=== PATIENT | male | born 1940 | race Hispanic/Latino ===

== ENCOUNTER 2018-10-10 17:03 | Inpatient (IN) | payer MEDICARE, MEDICAID ==
[2018-10-10 17:25] VITALS: BMI 18.8
[2018-10-10 18:26] LABS: BASO % 0.4 % (0.0-2.0); EOS # 0.1 K/uL (0.0-0.7); EOS % 0.6 % (0.0-4.0); HEMOGLOBIN 15.7 g/dL (12.0-18.0); LYMPH # 0.4 K/uL (1.0-4.3); LYMPH % 3.6 % (20.0-40.0); MEAN CORPUSCULAR HEMOGLOBIN 30.7 pg (27.0-31.0); MEAN CORPUSCULAR HGB CONC 35.3 g/dL (33.0-37.0); MEAN PLATELET VOLUME 8.1 fL (7.2-11.7); MONO # 0.5 K/uL (0.0-0.8); MONO % 5.4 % (0.0-10.0); NEUT # 8.8 K/uL (1.8-7.0); PLATELET COUNT 314 K/uL (130-400); RBC 5.13 Mil/uL (4.40-5.90); WHITE BLOOD COUNT 9.8 K/uL (4.8-10.8)
--- NOTE | 2018-10-10 18:26 | C.PDOC ---
History Of Present Illness 78 y/o male pt with hx of agoraphobia presents to the ER for c/o abdominal pain, scrotal pain and weight loss. Associated sx includes retching and vomiting. Pt notes for 5 months he has gastritis and abdominal bloating, x2 months weight loss and x1 month for the abdominal and scrotal pain. Pt notes he has left inguinal pain and is not eating well. Pt denies chest pain, fever, chills, cough, SOB and syncope. Time Seen by Provider: 10/10/18 17:10 Chief Complaint (Nursing): Abdominal Pain History Per: Patient History/Exam Limitations: no limitations Onset/Duration Of Symptoms: Days (x5 months ) Current Symptoms Are (Timing): Still Present Past Medical History Reviewed: Historical Data, Nursing Documentation, Vital Signs Vital Signs: Last Vital Signs Temp 97.9 F 10/10/18 17:57 Pulse 80 10/10/18 17:57 Resp 20 10/10/18 17:57 BP 157/81 H 10/10/18 17:57 Pulse Ox 98 10/10/18 17:57 - Medical History PMH: Gastritis Family History: States: No Known Family Hx - Social History Hx Alcohol Use: No Hx Substance Use: No - Immunization History Hx Tetanus Toxoid Vaccination: No Hx Influenza Vaccination: No Hx Pneumococcal Vaccination: No Review Of Systems Except As Marked, All Systems Reviewed And Found Negative. Constitutional: Positive for: Weight loss. Negative for: Fever, Chills Respiratory: Negative for: Cough, Shortness of Breath Gastrointestinal: Positive for: Vomiting, Abdominal Pain, Other (retching) Genitourinary: Positive for: Scrotal Pain Neurological: Negative for: Other (syncope) Physical Exam - Physical Exam Appears: Non-toxic, No Acute Distress, Unkempt, Chronically Ill, Other (thin, frail, poor hygiene ) Skin: Normal Color, Warm, Dry Head: Atraumatic, Normacephalic Eye(s): bilateral: Normal Inspection, EOMI Oral Mucosa: Dry, Other (pink) Throat: Normal Chest: Symmetrical Cardiovascular: Rhythm Regular Respiratory: Normal Breath Sounds Gastrointestinal/Abdominal: Bowel Sounds (+), No Soft (hard mass), Tenderness, Mass Back: No CVA Tenderness Male Genital: Inguinal Tenderness, Scrotal Swelling, Other (Left inguinal signh ia; mild erythema to scrotum) Extremity: Normal ROM (x4), Pedal Edema (b/l) Neurological/Psych: Oriented x3, Normal Speech, Normal Cognition ED Course And Treatment - Laboratory Results Result Diagrams: 10/14/18 06:46 10/14/18 06:46 ECG: Interpreted By Me, Viewed By Me ECG Rhythm: Sinus Rhythm, Nonspecific Changes ECG Interpretation: Normal, No Acute Changes Interpretation Of ECG: nml axis nml intervals Rate From EC O2 Sat by Pulse Oximetry: 98 (RA) Pulse Ox Interpretation: Normal - Radiology CXR: Interpreted by Me, Viewed By Me CXR Interpretation: Yes: No Acute Disease - CT Scan/US Abd&pelvis Other Rad Studies (CT/US): Read By Radiologist, Radiology Report Reviewed CT/US Interpretation: Impression: Scarring of the lung bases. Moderate to marke d hydronephrosis of both kidneys as well as hydroureter. Prominent right renal cyst of 5.5 cm. Marked distention of the urinary bladder extending into the upper abdomen. Multiple bladder calculi present at the posterior inferior aspect of the bladder. Prostate gland is markedly enlarged and lobular in contour. Large left inguinal hernia which appears to contain incarcerated large bowel. Smaller right inguinal hernia. Close clinical correlation advised. Medical Decision Making Medical Decision Making: Plans: -- CT abd & pelvis -- chem labs -- EKG -- blood work -- CXR -- UCX -- UA 19:33 Dr. Avalos accepts pt for admittance. 30 CC of kayexalate was given. 21:[address] Cruz and he instructs to place Rosenthal and to consult Dr. Early and Dr. West 21:10 market president paged 21:12 Nurse placed a Rosenthal in pt. Result: over 1300 CC of dark yellow urine. 21:19 Dr. Early called 21:29 Dr. West called and said he will see the pt on the floor 21:36 surgical garment inspector was consulted and said she would evaluate the pt. Disposition Counseled Patient/Family Regarding: Studies Performed, Diagnosis - Disposition Disposition: HOSPITALIZED Disposition Time: 19:33 Condition: STABLE - Clinical Impression Clinical Impression: Abdominal pain, Incarcerated inguinal hernia, Acute urinary retention, Dehydration, WILVER (acute kidney injury), Hyperkalemia - Scribe Statement The provider has reviewed the documentation as recorded by the Scribe Kimble Do Provider Attestation: All medical record entries made by the Scribe were at my direction and personally dictated by me. I have reviewed the chart and agree that the record accurately reflects my personal performance of the history, physical exam, medical decision making, and the department course for this patient. I have also personally directed, reviewed, and agree with the discharge instructions and disposition.
[2018-10-10 18:34] LABS: INR 1.1
[2018-10-10 18:46] LABS: ALB/GLOB RATIO 1.6 (1.0-2.1); ALBUMIN 4.8 g/dL (3.5-5.0); ALT/SGPT 22 U/L (21-72); AST/SGOT 21 U/L (17-59); CALCIUM 9.2 mg/dl (8.6-10.4); LIPASE 440 U/L (23-300)
[2018-10-10 18:52] LABS: B-TYPE NATRIURETIC PEPTIDE 97.4 pg/mL (0-900)
[2018-10-10 19:02] LABS: BLOOD UREA NITROGEN 129 mg/dL (9-20); GFR NON-AFRICAN AMERICAN 2
[2018-10-10 19:03] LABS: URINE BACTERIA RARE (<OCC); URINE BILIRUBIN NEGATIVE (NEGATIVE); URINE BLOOD 3+ (NEGATIVE); URINE CLARITY Hazy (Clear); URINE COLOR Yellow (YELLOW); URINE GLUCOSE (UA) NORMAL (Normal); URINE LEUKOCYTE ESTERASE NEG Leu/uL (Negative); URINE PROTEIN NEGATIVE (NEGATIVE); URINE UROBILINOGEN NORMAL mg/dL (0.2-1.0)
[2018-10-10 19:19] LABS: LARGE PLATELETS PRESENT; LYMPHOCYTE 2 % (20-40); MONOCYTE 1 % (0-10); NEUTROPHIL 97 % (50-75); PLATELET CLUMPS PRESENT; PLATELET ESTIMATE SLIGHTLY INCREASED (NORMAL); TOTAL CELLS COUNTED 100
[2018-10-10] MEDS ORDERED: Sod Polystyrene Sulf 15 gm/60 ml Susp PO ONE (19:20)
[2018-10-10] MEDS ORDERED: Sod Polystyrene Sulf 15 gm/60 ml Susp ONE (19:52)
[2018-10-10] MEDS ORDERED: Sodium Chloride 0.9% 1,000 ML ONE (20:40)
[2018-10-10] MEDS: Sodium Chloride 0.9% 1,000 ML IV SCH (20:46)
[2018-10-10] MEDS ORDERED: (Novolin R) Insulin Human Regular 100 units/ml vial IVP ONE (22:32)
[2018-10-10] MEDS ORDERED: Dextrose 50% SYRINGE Inj (50 ml) IV STA (22:33)
[2018-10-10] MEDS ORDERED: Albuterol 0.083% Inhal Sol (2.5 mg/3 mL) UD ONE (22:56)
--- NOTE | 2018-10-10 22:57 | CP.PCM.CON ---
History of Present Illness - History of Present Illness History of Present Illness: Surgery Consult: Dr. Early Pt is an 78M with PMHx significant for depression & agoraphobia who presents to with complaints of abdominal pain & vomiting x 3 months. Pt states that for the past few months he has been having abdominal pain that he thought was "gastritis" and he has been treating with "natural remedies" that he read about on the internet. He admits to on and off generalized abdominal pain with several episodes of vomiting over the last few months. He also states he has been having diarrhea along with these symptoms with tarry stools at times. Pt states that due to his agoraphobia he has not seen a physician for these symptoms, but his friends finally convinced him to come to the hospital today. He also admits to urinary incontinence and the feeling that he "hasn't been able to pee properly for quite some time now." Pt states the last time he saw a physician was more than a year ago. He also admits to having a left sided hernia since 2004 when the hernia was last repaired. Pt states hernia recurred soon after repair and has been getting bigger over the years. He admits to flatus, denies fevers/chill s, chest pain or SOB. States he is able to walk but it has been getting progressively difficult to get around for the last few days because of abdominal pain & swelling in his legs. PMHx: depression, agoraphobia PSHx: L inguinal hernia repair with mesh (2004), nasal mass excision SocialHx: denies smoking, alcohol/drugs NKDA Review of Systems - Review of Systems All systems: reviewed and no additional remarkable complaints except (as per HPI) Past Patient History - Past Social History Smoking Status: Never Smoked Alcohol: Occasional Drugs: Denies - GASTROINTESTINAL Hx Gastritis: Yes - GENITOURINARY/GYNECOLOGICAL Hx Genitourinary Disorders: Yes Hx Prostate Cancer: Yes - PSYCHIATRIC Hx Depression: Yes Hx Substance Use: No - SURGICAL HISTORY Hx Surgeries: Yes Hx Herniorrhaphy: Yes (L inguinal hernia ) - ANESTHESIA Hx Anesthesia: Yes Hx Anesthesia Reactions: No Meds Allergies/Adverse Reactions: Allergies Allergy/AdvReac Type Severity Reaction Status Date / Time No Known Allergies Allergy Verified 10/10/18 17:19 - Medications Medications: Current Medications Sodium Chloride (Sodium Chloride 0.9%) 1,000 mls @ 150 mls/hr IV .Q6H40M [facility] Last Admin: 10/10/18 20:46 Dose: 150 mls/hr Morphine Sulfate (Morphine) 2 mg IVP Q4 PRN PRN Reason: Pain, moderate (4-7) Physical Exam - Constitutional Appears: Well, No Acute Distress - Head Exam Head Exam: ATRAUMATIC, NORMOCEPHALIC - Eye Exam Eye Exam: Normal appearance - ENT Exam ENT Exam: Mucous Membranes Moist - Respiratory Exam Respiratory Exam: NORMAL BREATHING PATTERN - Cardiovascular Exam Cardiovascular Exam: RRR - GI/Abdominal Exam GI & Abdominal Exam: Soft, Tenderness (generalized, more pronounced suprapubic ). absent: Distended, Guarding, Rebound - Exam Additional comments: Large incarcerated left inguinal hernia, soft, very tender to palpation - Extremities Exam Extremities exam: Positive for: pedal edema - Neurological Exam Neurological exam: Alert, Oriented x3 - Skin Skin Exam: Dry, Warm Results - Vital Signs Recent Vital Signs: Last Vital Signs Temp 97.8 F 10/10/18 21:55 Pulse 93 H 10/10/18 21:55 Resp 20 10/10/18 21:55 BP 163/78 H 10/10/18 21:55 Pulse Ox 100 10/10/18 21:55 - Labs Result Diagrams: 10/10/18 18:23 10/10/18 18:23 Labs: Laboratory Results - last 24 hr 10/10/18 10/10/18 10/10/18 18:23 18:23 18:23 WBC 9.8 RBC 5.13 Hgb 15.7 Hct 44.6 MCV 87.0 MCH 30.7 MCHC 35.3 RDW 14.0 Plt Count 314 MPV 8.1 Neut % (Auto) 90.0 H Lymph % (Auto) 3.6 L [place] % (Auto) 5.4 Eos % (Auto) 0.6 Baso % (Auto) 0.4 Neut # (Auto) 8.8 H Lymph # (Auto) 0.4 L [place] # (Auto) 0.5 Eos # (Auto) 0.1 Baso # (Auto) 0.0 Neutrophils % (Manual) 97 H Lymphocytes % (Manual) 2 L Monocytes % (Manual) 1 Platelet Estimate Slightly increased H Plt Clumps, EDTA Present Large Platelets Present PT 12.0 INR 1.1 APTT 37 H Sodium 127 L Potassium 6.0 H Chloride 88 L Carbon Dioxide 13 L Anion Gap 32 H BUN 129 H* Creatinine 22.1 H* Est GFR ( Amer) 2 Est GFR (Non-Af Amer) 2 Random Glucose 107 Calcium 9.2 Total Bilirubin 0.8 AST 21 ALT 22 Alkaline Phosphatase 112 Ammonia Troponin I < 0.0120 NT-Pro-B Natriuret Pep 97.4 Total Protein 7.8 Albumin 4.8 Globulin 3.0 Albumin/Globulin Ratio 1.6 Lipase 440 H Urine Color Urine Clarity Urine pH Ur Specific [place] Urine Protein Urine Glucose (UA) Urine Ketones Urine Blood Urine Nitrate Urine Bilirubin Urine Urobilinogen Ur Leukocyte Esterase Urine WBC (Auto) Urine RBC (Auto) Urine Bacteria 10/10/18 10/10/18 18:23 18:54 WBC RBC Hgb Hct MCV MCH MCHC RDW Plt Count MPV Neut % (Auto) Lymph % (Auto) [place] % (Auto) Eos % (Auto) Baso % (Auto) Neut # (Auto) Lymph # (Auto) [place] # (Auto) Eos # (Auto) Baso # (Auto) Neutrophils % (Manual) Lymphocytes % (Manual) Monocytes % (Manual) Platelet Estimate Plt Clumps, EDTA Large Platelets PT INR APTT Sodium Potassium Chloride Carbon Dioxide Anion Gap BUN Creatinine Est GFR ( Amer) Est GFR (Non-Af Amer) Random Glucose Calcium Total Bilirubin AST ALT Alkaline Phosphatase Ammonia < 9 L Troponin I NT-Pro-B Natriuret Pep Total Protein Albumin Globulin Albumin/Globulin Ratio Lipase Urine Color Yellow Urine Clarity Hazy Urine pH 5.0 Ur Specific [place] 1.009 Urine Protein Negative Urine Glucose (UA) Normal Urine Ketones Negative Urine Blood 3+ H Urine Nitrate Negative Urine Bilirubin Negative Urine Urobilinogen Normal Ur Leukocyte Esterase Neg Urine WBC (Auto) 5 Urine RBC (Auto) 29 H Urine Bacteria Rare - Imaging and Cardiology CT scan - abdomen Status: Image reviewed by me, Report reviewed by me Assessment & Plan - Assessment and Plan (Free Text) Assessment: 78M with incarcerated L inguinal hernia Plan: - pt with elevated K+ & Cr of 22; likely due to WILVER secondary to urinary retention/hydronephrosis as seen on CT - hall catheter in place; already with 2L of UOP - insulin with 50% dextrose given stat for the hyperkalemia. f/u EKG - recommend ICU monitoring - repeat BMP - pt is not clinically obstructed from the inguinal hernia; will need repair once medically optimized - d/w Dr. Nneka Sharpe
[2018-10-10] MEDS: Albuterol 0.083% Inhal Sol (2.5 mg/3 mL) UD INH SCH (22:58)
[2018-10-11] MEDS: Sodium Chloride 0.9% 1,000 ML IV SCH (02:55)
[2018-10-11 08:03] LABS: BASO % 0.5 % (0.0-2.0); EOS % 0.5 % (0.0-4.0); LYMPH # 0.3 K/uL (1.0-4.3); MEAN CELL VOLUME 86.5 fL (80.0-94.0); MEAN CORPUSCULAR HGB CONC 35.8 g/dL (33.0-37.0); MONO # 0.8 K/uL (0.0-0.8); MONO % 10.4 % (0.0-10.0); NEUT # 6.3 K/uL (1.8-7.0); NEUT % 84.6 % (50.0-75.0); NRBC % 0.1 % (0.0-2.0); PLATELET COUNT 328 K/uL (130-400); RBC 4.35 Mil/uL (4.40-5.90); RED CELL DISTRIBUTION WIDTH 13.6 % (11.5-14.5); WHITE BLOOD COUNT 7.5 K/uL (4.8-10.8)
[2018-10-11 08:10] LABS: ALB/GLOB RATIO 1.3 (1.0-2.1); ALBUMIN 3.8 g/dL (3.5-5.0)
[2018-10-11 08:14] LABS: HEMOGLOBIN 13.5 g/dL (12.0-18.0)
[2018-10-11 09:14] LABS: LYMPHOCYTE 5 % (20-40); MONOCYTE 8 % (0-10); NEUTROPHIL 87 % (50-75); TOTAL CELLS COUNTED 100
[2018-10-11 09:15] LABS: PLATELET ESTIMATE NORMAL (NORMAL)
[2018-10-11 09:18] LABS: ANISOCYTOSIS SLIGHT
[2018-10-11 09:20] LABS: POIKILOCYTOSIS SLIGHT
[2018-10-11 09:21] LABS: BURR CELLS SLIGHT; HYPOCHROMIC SLIGHT; LARGE PLATELETS PRESENT; OVALOCYTES SLIGHT; POLYCHROMIC SLIGHT
[2018-10-11 09:23] LABS: GIANT PLATELETS PRESENT; TEARDROP CELLS SLIGHT; TOXIC GRANULATION PRESENT
--- NOTE | 2018-10-11 09:41 | CP.PCM.PN ---
Subjective - Date & Time of Evaluation Date of Evaluation: 10/11/18 Time of Evaluation: 09:38 - Subjective Subjective: Surgery: Dr. Early Pt seen and examined. No acute overnight events. Pt states he is feeling better this morning and his abdominal pain has improved. He denies any more episodes of vomiting. Denies fevers/chills. Admits to flatus. Objective - Vital Signs/Intake and Output Vital Signs (last 24 hours): Temp Pulse Resp BP Pulse Ox 98.2 F 82 20 133/71 100 10/11/18 07:00 10/11/18 07:00 10/11/18 07:00 10/11/18 07:00 10/11/18 07:00 Intake and Output: 10/11/18 10/11/18 06:59 18:59 Intake Total 1500 Output Total 3400 Balance -1900 - Medications Medications: Current Medications Heparin Sodium (Porcine) (Heparin) 5,000 units IV Q12 [facility] Sodium Chloride (Sodium Chloride 0.9%) 1,000 mls @ 150 mls/hr IV .Q6H40M [facility] Last Admin: 10/11/18 02:55 Dose: 150 mls/hr Cefepime HCl 1 gm/ Dextrose 50 mls @ 100 mls/hr IVPB Q24H [facility]; Protocol Last Admin: 10/11/18 00:23 Dose: 100 mls/hr Morphine Sulfate (Morphine) 2 mg IVP Q4 PRN PRN Reason: Pain, moderate (4-7) Pantoprazole Sodium (Protonix Inj) 40 mg IVP DAILY BREN[facility] - Labs Labs: 10/11/18 07:47 10/11/18 07:47 PT 12.0 SECONDS (9.7-12.2) 10/10/18 18:23 INR 1.1 10/10/18 18:23 APTT 37 SECONDS (21-34) H 10/10/18 18:23 - Constitutional Appears: Well, No Acute Distress - Head Exam Head Exam: ATRAUMATIC, NORMOCEPHALIC - Eye Exam Eye Exam: Normal appearance - ENT Exam ENT Exam: Mucous Membranes Moist - Respiratory Exam Respiratory Exam: NORMAL BREATHING PATTERN - Cardiovascular Exam Cardiovascular Exam: RRR - GI/Abdominal Exam GI & Abdominal Exam: Soft. absent: Distended, Guarding, Tenderness - Exam Additional comments: reducible L inguinal hernia - Neurological Exam Neurological Exam: Alert, Awake, Oriented x3 - Skin Skin Exam: Dry, Warm Assessment and Plan - Assessment and Plan (Free Text) Assessment: 78M with L inguinal hernia; reducible Plan: - will plan for OR when pt medically optimized - d/w Dr. Nneka Sharpe
[2018-10-11] MEDS ORDERED: Potassium Chloride 20 mEq ER Tab PO SCH (10:45)
[2018-10-11] MEDS ORDERED: Sodium Chloride 0.45% 1,000 ML IV SCH ×2 (10:45→12:29)
--- NOTE | 2018-10-11 12:00 | CP.PCM.CON ---
History of Present Illness - History of Present Illness History of Present Illness: We are asked to see patient for preoperative cardiac eval for Dx'd incarcerated L inguinal hernia. It appears that he had concomitant obstructive uropathy and WILVER and sx's improved with hall insertion. Presently there is no immediate plans for surgery. PMHX: Agoraphobia, depression Patient is A&Ox3 and lives at home alone and independent with basic household ADLs. He denies any cardiac problems, surgeries. No CP; No CHF sx's ; No fevers or chills Review of Systems - Review of Systems All systems: reviewed and no additional remarkable complaints except Past Patient History - Past Medical History & Family History Past Medical History?: Yes - Past Social History Smoking Status: Never Smoked - CARDIAC Hx Cardiac Disorders: No - PULMONARY Hx Respiratory Disorders: Yes Hx Asthma: Yes - NEUROLOGICAL Hx Neurological Disorder: No - HEENT Hx HEENT Problems: No - RENAL Hx Chronic Kidney Disease: No Other/Comment: creatinine 221 - ENDOCRINE/METABOLIC Hx Endocrine Disorders: No - HEMATOLOGICAL/ONCOLOGICAL Hx Blood Disorders: No - INTEGUMENTARY Hx Dermatological Problems: No - MUSCULOSKELETAL/RHEUMATOLOGICAL Hx Falls: Yes - GASTROINTESTINAL Hx Gastritis: Yes - GENITOURINARY/GYNECOLOGICAL Hx Genitourinary Disorders: Yes Hx Prostate Cancer: Yes - PSYCHIATRIC Hx Substance Use: No - SURGICAL HISTORY Hx Surgeries: Yes Hx Herniorrhaphy: Yes (L inguinal hernia ) - ANESTHESIA Hx Anesthesia: Yes Hx Anesthesia Reactions: No Meds Allergies/Adverse Reactions: Allergies Allergy/AdvReac Type Severity Reaction Status Date / Time No Known Allergies Allergy Verified 10/10/18 17:19 - Medications Medications: Current Medications Heparin Sodium (Porcine) (Heparin) 5,000 units IV Q12 [facility] Cefepime HCl 1 gm/ Dextrose 50 mls @ 100 mls/hr IVPB Q24H [facility]; Protocol Last Admin: 10/11/18 00:23 Dose: 100 mls/hr Sodium Chloride (Sodium Chloride 0.45%) 1,000 mls @ 100 mls/hr IV .Q10H [facility] Morphine Sulfate (Morphine) 2 mg IVP Q4 PRN PRN Reason: Pain, moderate (4-7) Pantoprazole Sodium (Protonix Inj) 40 mg IVP DAILY [facility] Tamsulosin HCl (Flomax) 0.4 mg PO DAILY [facility] Physical Exam - Constitutional Appears: No Acute Distress, Older Than Stated Age - Head Exam Head Exam: ATRAUMATIC, NORMAL INSPECTION, NORMOCEPHALIC - Eye Exam Eye Exam: EOMI, Normal appearance - ENT Exam ENT Exam: Mucous Membranes Moist, Normal Oropharynx - Neck Exam Neck exam: Negative for: Tenderness, Thyromegaly - Respiratory Exam Respiratory Exam: Clear to Auscultation Bilateral. absent: Rhonchi, Wheezes - Cardiovascular Exam Cardiovascular Exam: REGULAR RHYTHM, +S1, +S2. absent: Systolic Murmur - GI/Abdominal Exam GI & Abdominal Exam: Normal Bowel Sounds, Soft. absent: Tenderness - Extremities Exam Extremities exam: Positive for: normal inspection, pedal edema, pedal pulses present - Neurological Exam Neurological exam: Alert, Oriented x3 - Psychiatric Exam Psychiatric exam: Depressed, Normal Affect - Skin Skin Exam: Normal Color, Warm Results - Vital Signs Recent Vital Signs: Last Vital Signs Temp 98.2 F 10/11/18 07:00 Pulse 82 10/11/18 07:00 Resp 20 10/11/18 07:00 BP 133/71 10/11/18 07:00 Pulse Ox 100 10/11/18 07:00 - Labs Result Diagrams: 10/11/18 07:47 10/11/18 13:57 Labs: Laboratory Results - last 24 hr 10/10/18 10/10/18 10/10/18 18:23 18:23 18:23 WBC 9.8 RBC 5.13 Hgb 15.7 Hct 44.6 MCV 87.0 MCH 30.7 MCHC 35.3 RDW 14.0 Plt Count 314 MPV 8.1 Neut % (Auto) 90.0 H Lymph % (Auto) 3.6 L [place] % (Auto) 5.4 Eos % (Auto) 0.6 Baso % (Auto) 0.4 Neut # (Auto) 8.8 H Lymph # (Auto) 0.4 L [place] # (Auto) 0.5 Eos # (Auto) 0.1 Baso # (Auto) 0.0 Neutrophils % (Manual) 97 H Lymphocytes % (Manual) 2 L Monocytes % (Manual) 1 Toxic Granulation Platelet Estimate Slightly increased H Plt Clumps, EDTA Present Large Platelets Present Giant Platelets Polychromasia Hypochromasia (manual) Poikilocytosis (manual Anisocytosis (manual) Tear Drop Cells Ovalocytes [place] Cells PT 12.0 INR 1.1 APTT 37 H Sodium 127 L Potassium 6.0 H Chloride 88 L Carbon Dioxide 13 L Anion Gap 32 H BUN 129 H* Creatinine 22.1 H* Est GFR ( Amer) 2 Est GFR (Non-Af Amer) 2 Random Glucose 107 Calcium 9.2 Phosphorus Magnesium Total Bilirubin 0.8 AST 21 ALT 22 Alkaline Phosphatase 112 Ammonia Troponin I < 0.0120 NT-Pro-B Natriuret Pep 97.4 Total Protein 7.8 Albumin 4.8 Globulin 3.0 Albumin/Globulin Ratio 1.6 Lipase 440 H Urine Color Urine Clarity Urine pH Ur Specific [place] Urine Protein Urine Glucose (UA) Urine Ketones Urine Blood Urine Nitrate Urine Bilirubin Urine Urobilinogen Ur Leukocyte Esterase Urine WBC (Auto) Urine RBC (Auto) Urine Bacteria 10/10/18 10/10/18 10/11/18 18:23 18:54 07:47 WBC 7.5 RBC 4.35 L Hgb 13.5 D Hct 37.6 MCV 86.5 MCH 31.0 MCHC 35.8 RDW 13.6 Plt Count 328 MPV 8.0 Neut % (Auto) 84.6 H Lymph % (Auto) 4.0 L [place] % (Auto) 10.4 H Eos % (Auto) 0.5 Baso % (Auto) 0.5 Neut # (Auto) 6.3 Lymph # (Auto) 0.3 L [place] # (Auto) 0.8 Eos # (Auto) 0.0 Baso # (Auto) 0.0 Neutrophils % (Manual) 87 H Lymphocytes % (Manual) 5 L Monocytes % (Manual) 8 Toxic Granulation Present Platelet Estimate Normal Plt Clumps, EDTA Large Platelets Present Giant Platelets Present Polychromasia Slight Hypochromasia (manual) Slight Poikilocytosis (manual Slight Anisocytosis (manual) Slight Tear Drop Cells Slight Ovalocytes Slight [place] Cells Slight PT INR APTT Sodium Potassium Chloride Carbon Dioxide Anion Gap BUN Creatinine Est GFR ( Amer) Est GFR (Non-Af Amer) Random Glucose Calcium Phosphorus Magnesium Total Bilirubin AST ALT Alkaline Phosphatase Ammonia < 9 L Troponin I NT-Pro-B Natriuret Pep Total Protein Albumin Globulin Albumin/Globulin Ratio Lipase Urine Color Yellow Urine Clarity Hazy Urine pH 5.0 Ur Specific [place] 1.009 Urine Protein Negative Urine Glucose (UA) Normal Urine Ketones Negative Urine Blood 3+ H Urine Nitrate Negative Urine Bilirubin Negative Urine Urobilinogen Normal Ur Leukocyte Esterase Neg Urine WBC (Auto) 5 Urine RBC (Auto) 29 H Urine Bacteria Rare 10/11/18 07:47 WBC RBC Hgb Hct MCV MCH MCHC RDW Plt Count MPV Neut % (Auto) Lymph % (Auto) [place] % (Auto) Eos % (Auto) Baso % (Auto) Neut # (Auto) Lymph # (Auto) [place] # (Auto) Eos # (Auto) Baso # (Auto) Neutrophils % (Manual) Lymphocytes % (Manual) Monocytes % (Manual) Toxic Granulation Platelet Estimate Plt Clumps, EDTA Large Platelets Giant Platelets Polychromasia Hypochromasia (manual) Poikilocytosis (manual Anisocytosis (manual) Tear Drop Cells Ovalocytes [place] Cells PT INR APTT Sodium 140 Potassium 3.3 L Chloride 107 Carbon Dioxide 20 L Anion Gap 16 BUN 77 H Creatinine 6.8 H Est GFR ( Amer) 10 Est GFR (Non-Af Amer) 8 Random Glucose 103 Calcium 9.0 Phosphorus 6.1 H Magnesium 3.0 H Total Bilirubin 0.8 AST 30 ALT 22 Alkaline Phosphatase 86 Ammonia Troponin I NT-Pro-B Natriuret Pep Total Protein 6.7 Albumin 3.8 Globulin 2.9 Albumin/Globulin Ratio 1.3 Lipase Urine Color Urine Clarity Urine pH Ur Specific [place] Urine Protein Urine Glucose (UA) Urine Ketones Urine Blood Urine Nitrate Urine Bilirubin Urine Urobilinogen Ur Leukocyte Esterase Urine WBC (Auto) Urine RBC (Auto) Urine Bacteria - EKG Data EKG Interpreted by: Myself Assessment & Plan - Assessment and Plan (Free Text) Plan: WILVER Obstructive uropathy Inguinal hernia Creat improved 22 -> 3.4 K+ normal Acidosis: improving EKG: ordered and read by me as: NSR, nonspecific ST changes anterior CXR: No infiltrate or congestion Troponin neg for ACS CT abd: noted; hydronephrosis, bladder enlargement, L. inguinal hernia Currently patient does not have any active ischemia, sx's of CHF LE edema and scrotal edema improved: likely secondary to obstructive uropathy now hall insertion BP is stage 2 range can consider norvasc 5 Call back if surgery is being contemplated.
--- NOTE | 2018-10-11 12:36 | CP.PCM.CON ---
History of Present Illness - History of Present Illness History of Present Illness: Nephrology Consultation Note: Assessment: Stable Acute Kidney Injury (N17.9) likely due to obs uropathy: improving Hyperkalemia, hypokalemia, acidosis inguinal hernia, hyperphos, depression, hyponatremia Plan No acute need for renal replacement therapy at this time. Maintain hemodynamics stable. Avoid hypotension. Patient not on ACEI/ARB due to recent WILVER Monitor Input/Output, daily weights and renal function with basic metabolic panel change IVF to D5W monitor serum na, avoid correction in serum na >6-8 meq/24 hrs started flomax daily urology and surgery eval supplemented KCL Dose meds/antibiotics for reduced GFR. Avoid fleets enema/magnesium based laxatives. Avoid nephrotoxins/NSAIDs/ iodinated contrast (unless needed emergent ly) Glycemic control Further work up/management as per primary team Thanks for allowing me to participate in care of your patient. Will follow patient with you. Please call if any Qs. had d/w team Dr Braulio Evans Office: [phone] Chief Complaint; gastritis Reason for consult: Acute Kidney Injury HPI: Pt is a 78 M with hx of depression and agarophobia presented with complaints of pain abdomen and found to have left ingunal hernia and severe obs uropathy with WILVER which is improving well after hall catheter. renal consult for WILVER Denies OTC/herbal meds or NSAIDs No recent iodinated contrast exposure. No obvious episodes of low BP. pt feels better. c/o ankle swelling ROS: Cardiovascular: No chest pain. Pulmonary: No shortness of breath Gastrointestinal: denies abdominal pain No nausea. No vomiting. Genitourinary: No pain while urinating. Denies blood in urine. hsa hall All other negative except as mentioned in HPI Physical Examination: General Appearance: Comfortable, in no acute respiratory distress, co-operative . Vitals reviewed and noted as below Head; Atraumatic, normocephalic ENT: no ulcers no thrush. Tongue is midline. Oropharynx: no rash or ulcers. EYES: Pupils are equal, round and reactive to light accommodation. Eye muscles and extraocular movement intact. Sclera is anicteric. Neck; supple no lymphadenopathy, no thyromegaly or bruit Lungs: Normal respiratory rate/effort. Breath sounds bilateral equal and clear Heart: Normal rate. s1s2 normal. No rub or gallop. Extremities: 1+ edema. No varicose veins Neurological: Patient is alert, awake and oriented to person, place and time. No focal deficit. Strength bilateral appropriate and equal Skin: Warm and dry. Normal turgor. No rash. Palpitation: Normal elasticity for age Abdomen: Abdomen is soft. Bowel sounds +. There is no abdominal tenderness, no guarding/rigidity no organomegaly Psych: normal insight and normal affect/mood MSK: no joint tenderness or swelling. Digits and nails normal, no deformity : kidney or bladder not palpable. has hall. left inguinal hernia + Labs/imaging reviewed. Past medical history, past surgical history, family history, social history, allergy reviewed and noted as below Family hx: no hx of CKD. Rest non-contributory Past Patient History - Past Medical History & Family History Past Medical History?: Yes - Past Social History Smoking Status: Never Smoked - CARDIAC Hx Cardiac Disorders: No - PULMONARY Hx Respiratory Disorders: Yes Hx Asthma: Yes - NEUROLOGICAL Hx Neurological Disorder: No - HEENT Hx HEENT Problems: No - RENAL Hx Chronic Kidney Disease: No Other/Comment: creatinine 221 - ENDOCRINE/METABOLIC Hx Endocrine Disorders: No - HEMATOLOGICAL/ONCOLOGICAL Hx Blood Disorders: No - INTEGUMENTARY Hx Dermatological Problems: No - MUSCULOSKELETAL/RHEUMATOLOGICAL Hx Falls: Yes - GASTROINTESTINAL Hx Gastritis: Yes - GENITOURINARY/GYNECOLOGICAL Hx Genitourinary Disorders: Yes Hx Prostate Cancer: Yes - PSYCHIATRIC Hx Substance Use: No - SURGICAL HISTORY Hx Surgeries: Yes Hx Herniorrhaphy: Yes (L inguinal hernia ) - ANESTHESIA Hx Anesthesia: Yes Hx Anesthesia Reactions: No Meds Allergies/Adverse Reactions: Allergies Allergy/AdvReac Type Severity Reaction Status Date / Time No Known Allergies Allergy Verified 10/10/18 17:19 - Medications Medications: Current Medications Heparin Sodium (Porcine) (Heparin) 5,000 units IV Q12 [facility] Cefepime HCl 1 gm/ Dextrose 50 mls @ 100 mls/hr IVPB Q24H [facility]; Protocol Last Admin: 10/11/18 00:23 Dose: 100 mls/hr Sodium Chloride (Sodium Chloride 0.45%) 1,000 mls @ 75 mls/hr IV .[id number] [facility] Morphine Sulfate (Morphine) 2 mg IVP Q4 PRN PRN Reason: Pain, moderate (4-7) Pantoprazole Sodium (Protonix Inj) 40 mg IVP DAILY [facility] Tamsulosin HCl (Flomax) 0.4 mg PO DAILY [facility] Results - Vital Signs Recent Vital Signs: Last Vital Signs Temp 98.2 F 10/11/18 07:00 Pulse 82 10/11/18 07:00 Resp 20 10/11/18 07:00 BP 133/71 10/11/18 07:00 Pulse Ox 100 10/11/18 07:00 - Labs Result Diagrams: 10/11/18 07:47 10/11/18 07:47 Labs: Laboratory Results - last 24 hr 10/10/18 10/10/18 10/10/18 18:23 18:23 18:23 WBC 9.8 RBC 5.13 Hgb 15.7 Hct 44.6 MCV 87.0 MCH 30.7 MCHC 35.3 RDW 14.0 Plt Count 314 MPV 8.1 Neut % (Auto) 90.0 H Lymph % (Auto) 3.6 L [place] % (Auto) 5.4 Eos % (Auto) 0.6 Baso % (Auto) 0.4 Neut # (Auto) 8.8 H Lymph # (Auto) 0.4 L [place] # (Auto) 0.5 Eos # (Auto) 0.1 Baso # (Auto) 0.0 Neutrophils % (Manual) 97 H Lymphocytes % (Manual) 2 L Monocytes % (Manual) 1 Toxic Granulation Platelet Estimate Slightly increased H Plt Clumps, EDTA Present Large Platelets Present Giant Platelets Polychromasia Hypochromasia (manual) Poikilocytosis (manual Anisocytosis (manual) Tear Drop Cells Ovalocytes [place] Cells PT 12.0 INR 1.1 APTT 37 H Sodium 127 L Potassium 6.0 H Chloride 88 L Carbon Dioxide 13 L Anion Gap 32 H BUN 129 H* Creatinine 22.1 H* Est GFR ( Amer) 2 Est GFR (Non-Af Amer) 2 Random Glucose 107 Calcium 9.2 Phosphorus Magnesium Total Bilirubin 0.8 AST 21 ALT 22 Alkaline Phosphatase 112 Ammonia Troponin I < 0.0120 NT-Pro-B Natriuret Pep 97.4 Total Protein 7.8 Albumin 4.8 Globulin 3.0 Albumin/Globulin Ratio 1.6 Lipase 440 H Urine Color Urine Clarity Urine pH Ur Specific [place] Urine Protein Urine Glucose (UA) Urine Ketones Urine Blood Urine Nitrate Urine Bilirubin Urine Urobilinogen Ur Leukocyte Esterase Urine WBC (Auto) Urine RBC (Auto) Urine Bacteria 10/10/18 10/10/18 10/11/18 18:23 18:54 07:47 WBC 7.5 RBC 4.35 L Hgb 13.5 D Hct 37.6 MCV 86.5 MCH 31.0 MCHC 35.8 RDW 13.6 Plt Count 328 MPV 8.0 Neut % (Auto) 84.6 H Lymph % (Auto) 4.0 L [place] % (Auto) 10.4 H Eos % (Auto) 0.5 Baso % (Auto) 0.5 Neut # (Auto) 6.3 Lymph # (Auto) 0.3 L [place] # (Auto) 0.8 Eos # (Auto) 0.0 Baso # (Auto) 0.0 Neutrophils % (Manual) 87 H Lymphocytes % (Manual) 5 L Monocytes % (Manual) 8 Toxic Granulation Present Platelet Estimate Normal Plt Clumps, EDTA Large Platelets Present Giant Platelets Present Polychromasia Slight Hypochromasia (manual) Slight Poikilocytosis (manual Slight Anisocytosis (manual) Slight Tear Drop Cells Slight Ovalocytes Slight [place] Cells Slight PT INR APTT Sodium Potassium Chloride Carbon Dioxide Anion Gap BUN Creatinine Est GFR ( Amer) Est GFR (Non-Af Amer) Random Glucose Calcium Phosphorus Magnesium Total Bilirubin AST ALT Alkaline Phosphatase Ammonia < 9 L Troponin I NT-Pro-B Natriuret Pep Total Protein Albumin Globulin Albumin/Globulin Ratio Lipase Urine Color Yellow Urine Clarity Hazy Urine pH 5.0 Ur Specific [place] 1.009 Urine Protein Negative Urine Glucose (UA) Normal Urine Ketones Negative Urine Blood 3+ H Urine Nitrate Negative Urine Bilirubin Negative Urine Urobilinogen Normal Ur Leukocyte Esterase Neg Urine WBC (Auto) 5 Urine RBC (Auto) 29 H Urine Bacteria Rare 10/11/18 07:47 WBC RBC Hgb Hct MCV MCH MCHC RDW Plt Count MPV Neut % (Auto) Lymph % (Auto) [place] % (Auto) Eos % (Auto) Baso % (Auto) Neut # (Auto) Lymph # (Auto) [place] # (Auto) Eos # (Auto) Baso # (Auto) Neutrophils % (Manual) Lymphocytes % (Manual) Monocytes % (Manual) Toxic Granulation Platelet Estimate Plt Clumps, EDTA Large Platelets Giant Platelets Polychromasia Hypochromasia (manual) Poikilocytosis (manual Anisocytosis (manual) Tear Drop Cells Ovalocytes [place] Cells PT INR APTT Sodium 140 Potassium 3.3 L Chloride 107 Carbon Dioxide 20 L Anion Gap 16 BUN 77 H Creatinine 6.8 H Est GFR ( Amer) 10 Est GFR (Non-Af Amer) 8 Random Glucose 103 Calcium 9.0 Phosphorus 6.1 H Magnesium 3.0 H Total Bilirubin 0.8 AST 30 ALT 22 Alkaline Phosphatase 86 Ammonia Troponin I NT-Pro-B Natriuret Pep Total Protein 6.7 Albumin 3.8 Globulin 2.9 Albumin/Globulin Ratio 1.3 Lipase Urine Color Urine Clarity Urine pH Ur Specific [place] Urine Protein Urine Glucose (UA) Urine Ketones Urine Blood Urine Nitrate Urine Bilirubin Urine Urobilinogen Ur Leukocyte Esterase Urine WBC (Auto) Urine RBC (Auto) Urine Bacteria
--- NOTE | 2018-10-11 13:06 | CT ---
Date of service: 10/10/2018 PROCEDURE: CT Abdomen and Pelvis with Oral contrast. HISTORY: Abdominal pain COMPARISON: None. TECHNIQUE: Contiguous axial images of the abdomen and pelvis without oral or intravenous contrast. Additional 2D coronal and sagittal reformats generated. Radiation dose: Total exam DLP = 446.38 mGy-cm. This CT exam was performed using one or more of the following dose reduction techniques: Automated exposure control, adjustment of the mA and/or kV according to patient size, and/or use of iterative reconstruction technique. FINDINGS: LOWER THORAX: Linear atelectasis and/or scarring changes seen both lung bases including the middle lobe. No focal consolidation. No effusion or basilar pneumothorax. Heart size within range of normal. LIVER: Unremarkable. No gross lesion or ductal dilatation. GALLBLADDER AND BILE DUCTS: Gallbladder appears incompletely distended likely due to nonfasting state. PANCREAS: Unremarkable. No mass. No ductal dilatation. SPLEEN: Spleen exhibits normal size and attenuation pattern. ADRENALS: No adrenal lesions. KIDNEYS AND URETERS: Moderate to fairly significant bilateral hydronephrosis likely due to chronic bladder outlet obstruction.. No definitive obstructing renal or ureteral calculi identified. There is a large approximately 5 cm exophytic cyst arising from the lower pole of the right kidney.. Questionable tiny sub cm cyst anterior cortex upper/midpole left kidney. BLADDER: Urinary bladder is significantly distended extending into the mid/upper abdomen more so on the right as the bladder extends superiorly.. Findings consistent with urinary bladder outlet obstruction likely due to enlarged prostate gland. The intraluminal urinary bladder calculi are present. Additionally, there are bladder diverticula seen along the posterior superior margin of the urinary bladder. REPRODUCTIVE: Prostate gland is enlarged measuring approximately 5.6 cm in transverse dimension.. See additional details regarding scrotum in peritoneal section of this report below. APPENDIX: Appendix is not seen with any certainty due to compressive effects of the significantly distended urinary bladder BOWEL: Evaluation of the bowel is limited due to the lack of oral contrast material. Bowel evaluation is further limited by significantly distended urinary bladder which compresses both large and small bowel loops. PERITONEUM: No free intraperitoneal air no fluid collection. No free air. The there is a large incarcerated left-sided inguinal hernia containing mesenteric fat and loops of bowel one of which is most likely a segment of the descending and/or sigmoid colon which contains numerous diverticula. There is also fluid present within the scrotal sac which could represent a hydrocele however the possibility of an acute diverticulitis cannot be completely excluded. Clinical correlation recommended. There is a small fat containing right inguinal hernia. LYMPH NODES: Unremarkable. No enlarged lymph nodes. VASCULATURE: Unremarkable. No aortic aneurysm. Mild aortic atherosclerotic calcification or mural plaque present. BONES: Minor multilevel degenerative spondylosis of the lower thoracic and lumbar spine. OTHER FINDINGS: None. IMPRESSION: Severely distended urinary bladder which extends superiorly into the upper/mid abdomen more so on the right along its superior border. Findings likely due to enlarged prostate gland with bladder outlet obstruction. There are also bladder diverticula along the superior margin of the urinary bladder. Intraluminal urinary bladder calculi are also present within the inferior dependent portion of the urinary bladder. There are also is secondary moderate to fairly significant bilateral hydronephrosis.. Large exophytic cyst lower pole right kidney with suspected small cyst anterior cortex upper/midpole left kidney. There is a large left-sided inguinal hernia that contains loops of unobstructed bowel, a short segment which probably represents the descending and/or sigmoid colon which exhibits several colonic diverticula. Fluid is present within the scrotum likely due to a hydrocele however the possibility of acute diverticulitis not excluded. Small right inguinal hernia. Small fat containing right inguinal hernia. Note this report was placed in PA review folder for follow up.
--- NOTE | 2018-10-11 14:16 | CP.PCM.HP ---
Past Patient History - Past Medical History & Family History Past Medical History?: Yes - Past Social History Smoking Status: Never Smoked - CARDIAC Hx Cardiac Disorders: No - PULMONARY Hx Respiratory Disorders: Yes Hx Asthma: Yes - NEUROLOGICAL Hx Neurological Disorder: No - HEENT Hx HEENT Problems: No - RENAL Hx Chronic Kidney Disease: No Other/Comment: creatinine 221 - ENDOCRINE/METABOLIC Hx Endocrine Disorders: No - HEMATOLOGICAL/ONCOLOGICAL Hx Blood Disorders: No - INTEGUMENTARY Hx Dermatological Problems: No - MUSCULOSKELETAL/RHEUMATOLOGICAL Hx Falls: Yes - GASTROINTESTINAL Hx Gastritis: Yes - GENITOURINARY/GYNECOLOGICAL Hx Genitourinary Disorders: Yes Hx Prostate Cancer: Yes - PSYCHIATRIC Hx Substance Use: No - SURGICAL HISTORY Hx Surgeries: Yes Hx Herniorrhaphy: Yes (L inguinal hernia ) - ANESTHESIA Hx Anesthesia: Yes Hx Anesthesia Reactions: No Meds Allergies/Adverse Reactions: Allergies Allergy/AdvReac Type Severity Reaction Status Date / Time No Known Allergies Allergy Verified 10/10/18 17:19 Physical Exam - Constitutional Appears: Well - Head Exam Head Exam: ATRAUMATIC, NORMAL INSPECTION, NORMOCEPHALIC - Eye Exam Eye Exam: EOMI, Normal appearance, PERRL Pupil Exam: NORMAL ACCOMODATION, PERRL - ENT Exam ENT Exam: Mucous Membranes Moist, Normal Exam - Neck Exam Neck exam: Positive for: Normal Inspection - Respiratory Exam Respiratory Exam: Decreased Breath Sounds - Cardiovascular Exam Cardiovascular Exam: REGULAR RHYTHM, +S1, +S2 - GI/Abdominal Exam GI & Abdominal Exam: Diminished Bowel Sounds, Soft - Rectal Exam Rectal Exam: Deferred Results - Vital Signs Recent Vital Signs: Last Vital Signs Temp 98.2 F 10/11/18 07:00 Pulse 82 10/11/18 07:00 Resp 20 10/11/18 07:00 BP 133/71 10/11/18 07:00 Pulse Ox 100 10/11/18 07:00 - Labs Result Diagrams: 10/11/18 07:47 10/11/18 07:47 Labs: Laboratory Results - last 24 hr 10/10/18 10/10/18 10/10/18 18:23 18:23 18:23 WBC 9.8 RBC 5.13 Hgb 15.7 Hct 44.6 MCV 87.0 MCH 30.7 MCHC 35.3 RDW 14.0 Plt Count 314 MPV 8.1 Neut % (Auto) 90.0 H Lymph % (Auto) 3.6 L [place] % (Auto) 5.4 Eos % (Auto) 0.6 Baso % (Auto) 0.4 Neut # (Auto) 8.8 H Lymph # (Auto) 0.4 L [place] # (Auto) 0.5 Eos # (Auto) 0.1 Baso # (Auto) 0.0 Neutrophils % (Manual) 97 H Lymphocytes % (Manual) 2 L Monocytes % (Manual) 1 Toxic Granulation Platelet Estimate Slightly increased H Plt Clumps, EDTA Present Large Platelets Present Giant Platelets Polychromasia Hypochromasia (manual) Poikilocytosis (manual Anisocytosis (manual) Tear Drop Cells Ovalocytes [place] Cells PT 12.0 INR 1.1 APTT 37 H Sodium 127 L Potassium 6.0 H Chloride 88 L Carbon Dioxide 13 L Anion Gap 32 H BUN 129 H* Creatinine 22.1 H* Est GFR ( Amer) 2 Est GFR (Non-Af Amer) 2 Random Glucose 107 Calcium 9.2 Phosphorus Magnesium Total Bilirubin 0.8 AST 21 ALT 22 Alkaline Phosphatase 112 Ammonia Troponin I < 0.0120 NT-Pro-B Natriuret Pep 97.4 Total Protein 7.8 Albumin 4.8 Globulin 3.0 Albumin/Globulin Ratio 1.6 Lipase 440 H Urine Color Urine Clarity Urine pH Ur Specific [place] Urine Protein Urine Glucose (UA) Urine Ketones Urine Blood Urine Nitrate Urine Bilirubin Urine Urobilinogen Ur Leukocyte Esterase Urine WBC (Auto) Urine RBC (Auto) Urine Bacteria 10/10/18 10/10/18 10/11/18 18:23 18:54 07:47 WBC 7.5 RBC 4.35 L Hgb 13.5 D Hct 37.6 MCV 86.5 MCH 31.0 MCHC 35.8 RDW 13.6 Plt Count 328 MPV 8.0 Neut % (Auto) 84.6 H Lymph % (Auto) 4.0 L [place] % (Auto) 10.4 H Eos % (Auto) 0.5 Baso % (Auto) 0.5 Neut # (Auto) 6.3 Lymph # (Auto) 0.3 L [place] # (Auto) 0.8 Eos # (Auto) 0.0 Baso # (Auto) 0.0 Neutrophils % (Manual) 87 H Lymphocytes % (Manual) 5 L Monocytes % (Manual) 8 Toxic Granulation Present Platelet Estimate Normal Plt Clumps, EDTA Large Platelets Present Giant Platelets Present Polychromasia Slight Hypochromasia (manual) Slight Poikilocytosis (manual Slight Anisocytosis (manual) Slight Tear Drop Cells Slight Ovalocytes Slight [place] Cells Slight PT INR APTT Sodium Potassium Chloride Carbon Dioxide Anion Gap BUN Creatinine Est GFR ( Amer) Est GFR (Non-Af Amer) Random Glucose Calcium Phosphorus Magnesium Total Bilirubin AST ALT Alkaline Phosphatase Ammonia < 9 L Troponin I NT-Pro-B Natriuret Pep Total Protein Albumin Globulin Albumin/Globulin Ratio Lipase Urine Color Yellow Urine Clarity Hazy Urine pH 5.0 Ur Specific [place] 1.009 Urine Protein Negative Urine Glucose (UA) Normal Urine Ketones Negative Urine Blood 3+ H Urine Nitrate Negative Urine Bilirubin Negative Urine Urobilinogen Normal Ur Leukocyte Esterase Neg Urine WBC (Auto) 5 Urine RBC (Auto) 29 H Urine Bacteria Rare 10/11/18 07:47 WBC RBC Hgb Hct MCV MCH MCHC RDW Plt Count MPV Neut % (Auto) Lymph % (Auto) [place] % (Auto) Eos % (Auto) Baso % (Auto) Neut # (Auto) Lymph # (Auto) [place] # (Auto) Eos # (Auto) Baso # (Auto) Neutrophils % (Manual) Lymphocytes % (Manual) Monocytes % (Manual) Toxic Granulation Platelet Estimate Plt Clumps, EDTA Large Platelets Giant Platelets Polychromasia Hypochromasia (manual) Poikilocytosis (manual Anisocytosis (manual) Tear Drop Cells Ovalocytes [place] Cells PT INR APTT Sodium 140 Potassium 3.3 L Chloride 107 Carbon Dioxide 20 L Anion Gap 16 BUN 77 H Creatinine 6.8 H Est GFR ( Amer) 10 Est GFR (Non-Af Amer) 8 Random Glucose 103 Calcium 9.0 Phosphorus 6.1 H Magnesium 3.0 H Total Bilirubin 0.8 AST 30 ALT 22 Alkaline Phosphatase 86 Ammonia Troponin I NT-Pro-B Natriuret Pep Total Protein 6.7 Albumin 3.8 Globulin 2.9 Albumin/Globulin Ratio 1.3 Lipase Urine Color Urine Clarity Urine pH Ur Specific [place] Urine Protein Urine Glucose (UA) Urine Ketones Urine Blood Urine Nitrate Urine Bilirubin Urine Urobilinogen Ur Leukocyte Esterase Urine WBC (Auto) Urine RBC (Auto) Urine Bacteria
[2018-10-11 14:43] LABS: CALCIUM 8.4 mg/dl (8.6-10.4)
--- NOTE | 2018-10-11 15:46 | RAD ---
Date of service: 10/10/2018 HISTORY: abd pain COMPARISON: None available. FINDINGS: LUNGS: No active pulmonary disease. PLEURA: No significant pleural effusion identified, no pneumothorax apparent. CARDIOVASCULAR: Mild aortic atherosclerotic calcification present. Normal cardiac size. No pulmonary vascular congestion. OSSEOUS STRUCTURES: Mild multilevel degenerative spondylosis of the thoracic spine. VISUALIZED UPPER ABDOMEN: Normal. OTHER FINDINGS: None. IMPRESSION: No active disease.
[2018-10-12] MEDS: Tramadol 25 mg PO PRN (00:36)
[2018-10-12 08:31] LABS: MEAN CELL VOLUME 87.7 fL (80.0-94.0); MEAN CORPUSCULAR HEMOGLOBIN 30.4 pg (27.0-31.0); MEAN CORPUSCULAR HGB CONC 34.6 g/dL (33.0-37.0); MEAN PLATELET VOLUME 8.1 fL (7.2-11.7); RBC 3.63 Mil/uL (4.40-5.90); RED CELL DISTRIBUTION WIDTH 13.9 % (11.5-14.5); WHITE BLOOD COUNT 5.6 K/uL (4.8-10.8)
[2018-10-12 08:42] LABS: BLOOD UREA NITROGEN 21 mg/dL (9-20); CALCIUM 7.8 mg/dl (8.6-10.4); GFR NON-AFRICAN AMERICAN > 60
[2018-10-12] MEDS ORDERED: POLYETHYLENE GLYCOL 3350 17 GM/Dose PACKET PO ONE (12:18)
--- NOTE | 2018-10-12 12:23 | CP.PCM.PN ---
Subjective - Date & Time of Evaluation Date of Evaluation: 10/12/18 Time of Evaluation: 12:19 - Subjective Subjective: Surgery: Dr. Early Pt seen and examined. No acute overnight events. States he's feeling a lot better and abdominal pain has improved significantly. Denies any more episodes of nausea/vomiting, states he's tolerating his diet. Pt admits to not having a BM for the past few days. Denies fevers/chills. Objective - Vital Signs/Intake and Output Vital Signs (last 24 hours): Temp Pulse Resp BP Pulse Ox 98.1 F 66 20 100/50 L 96 10/12/18 07:00 10/12/18 08:02 10/12/18 07:00 10/12/18 07:00 10/12/18 07:00 Intake and Output: 10/12/18 10/12/18 06:59 18:59 Intake Total 1482 Output Total 2200 Balance -718 - Medications Medications: Current Medications Heparin Sodium (Porcine) (Heparin) 5,000 units SC Q12 [facility] Last Admin: 10/12/18 10:39 Dose: 5,000 units Cefepime HCl 1 gm/ Dextrose 50 mls @ 100 mls/hr IVPB Q24H [facility]; Protocol Last Admin: 10/12/18 00:37 Dose: 100 mls/hr Dextrose (Dextrose 5% In Water 1000 Ml) 1,000 mls @ 75 mls/hr IV .[id number] [facility] Last Admin: 10/12/18 01:57 Dose: 75 mls/hr Pantoprazole Sodium (Protonix Inj) 40 mg IVP DAILY [facility] Last Admin: 10/12/18 10:38 Dose: 40 mg Polyethylene Glycol (Miralax) 17 gm PO ONCE ONE Stop: 10/12/18 12:19 Potassium Chloride (K-Dur 20 Meq Er Tab) 40 meq PO DAILY [facility]EN[facility] Stop: 10/12/18 12:31 Tamsulosin HCl (Flomax) 0.4 mg PO DAILY [facility] Last Admin: 10/12/18 10:38 Dose: 0.4 mg Tramadol HCl (Ultram) 25 mg PO TID PRN PRN Reason: Pain, moderate (4-7) Last Admin: 10/12/18 00:36 Dose: 25 mg - Labs Labs: 10/12/18 08:12 10/12/18 08:12 PT 12.0 SECONDS (9.7-12.2) 10/10/18 18:23 INR 1.1 10/10/18 18:23 APTT 37 SECONDS (21-34) H 10/10/18 18:23 - Constitutional Appears: Well, No Acute Distress - Head Exam Head Exam: ATRAUMATIC, NORMOCEPHALIC - Eye Exam Eye Exam: Normal appearance - ENT Exam ENT Exam: Mucous Membranes Moist - Respiratory Exam Respiratory Exam: NORMAL BREATHING PATTERN - Cardiovascular Exam Cardiovascular Exam: RRR - GI/Abdominal Exam GI & Abdominal Exam: Soft. absent: Distended, Tenderness, Rebound - Exam Additional comments: reducible L inguinal hernia - Neurological Exam Neurological Exam: Alert, Awake, Oriented x3 - Skin Skin Exam: Dry, Warm Assessment and Plan - Assessment and Plan (Free Text) Assessment: 78M with reducible left inguinal hernia Plan: - pt clinically improved with normalize Cr s/p hall insertion for obstructive u ropathy - f/u urology recs - no urgent need for hernia repair at this time - d/w Dr. Nneka Sharpe
[2018-10-12] MEDS ORDERED: Potassium Chloride 20 mEq ER Tab PO SCH (12:30)
--- NOTE | 2018-10-12 12:55 | CP.PCM.PN ---
Subjective - Date & Time of Evaluation Date of Evaluation: 10/12/18 Time of Evaluation: 12:54 - Subjective Subjective: Nephrology Consultation Note: Assessment: Stable Acute Kidney Injury (N17.9) likely due to obs uropathy: improved Hyperkalemia, hypokalemia, acidosis inguinal hernia, hyperphos, depression, hyponatremia Plan No acute need for renal replacement therapy at this time. Maintain hemodynamics stable. Avoid hypotension. Patient not on ACEI/ARB due to recent WILVER Monitor Input/Output, daily weights and renal function with basic metabolic panel continue with IVF as D5W for another day to Na correction in target range. monitor serum na, avoid correction in serum na >6-8 meq/24 hrs started flomax daily urology and surgery eval supplemented KCL Dose meds/antibiotics for normal GFR. Glycemic control Further work up/management as per primary team Thanks for allowing me to participate in care of your patient. Will follow patient with you. Please call if any Qs. had d/w team Dr Braulio Evans Office: [phone] Chief Complaint; gastritis Reason for consult: Acute Kidney Injury HPI: Pt is a 78 M with hx of depression and agarophobia presented with complaints of pain abdomen and found to have left ingunal hernia and severe obs uropathy with WILVER which is improving well after hall catheter. renal consult for WILVER Denies OTC/herbal meds or NSAIDs No recent iodinated contrast exposure. No obvious episodes of low BP. pt feels better. c/o ankle swelling ROS: Cardiovascular: No chest pain. Pulmonary: No shortness of breath Gastrointestinal: denies abdominal pain No nausea. No vomiting. Genitourinary: No pain while urinating. Denies blood in urine. has hall All other negative except as mentioned in HPI Physical Examination: General Appearance: Comfortable, in no acute respiratory distress, co-operative . Vitals reviewed and noted as below Head; Atraumatic, normocephalic ENT: no ulcers no thrush. Tongue is midline. Oropharynx: no rash or ulcers. EYES: Pupils are equal, round and reactive to light accommodation. Eye muscles and extraocular movement intact. Sclera is anicteric. Neck; supple no lymphadenopathy, no thyromegaly or bruit Lungs: Normal respiratory rate/effort. Breath sounds bilateral equal and clear Heart: Normal rate. s1s2 normal. No rub or gallop. Extremities: 1+ edema. No varicose veins Neurological: Patient is alert, awake and oriented to person, place and time. No focal deficit. Strength bilateral appropriate and equal Skin: Warm and dry. Normal turgor. No rash. Palpitation: Normal elasticity for age Abdomen: Abdomen is soft. Bowel sounds +. There is no abdominal tenderness, no guarding/rigidity no organomegaly Psych: normal insight and normal affect/mood MSK: no joint tenderness or swelling. Digits and nails normal, no deformity : kidney or bladder not palpable. has hall. left inguinal hernia + Labs/imaging reviewed. Past medical history, past surgical history, family history, social history, allergy reviewed and noted as below Family hx: no hx of CKD. Rest non-contributory Objective - Vital Signs/Intake and Output Vital Signs (last 24 hours): Temp Pulse Resp BP Pulse Ox 98.1 F 66 20 100/50 L 96 10/12/18 07:00 10/12/18 08:02 10/12/18 07:00 10/12/18 07:00 10/12/18 07:00 Intake and Output: 10/12/18 10/12/18 06:59 18:59 Intake Total 1482 Output Total 2200 Balance -718 - Medications Medications: Current Medications Heparin Sodium (Porcine) (Heparin) 5,000 units SC Q12 [facility] Last Admin: 10/12/18 10:39 Dose: 5,000 units Cefepime HCl 1 gm/ Dextrose 50 mls @ 100 mls/hr IVPB Q24H [facility]; Protocol Last Admin: 10/12/18 00:37 Dose: 100 mls/hr Dextrose (Dextrose 5% In Water 1000 Ml) 1,000 mls @ 75 mls/hr IV .[id number] [facility] Last Admin: 10/12/18 01:57 Dose: 75 mls/hr Pantoprazole Sodium (Protonix Inj) 40 mg IVP DAILY [facility] Last Admin: 10/12/18 10:38 Dose: 40 mg Tamsulosin HCl (Flomax) 0.4 mg PO DAILY [facility] Last Admin: 10/12/18 10:38 Dose: 0.4 mg Tramadol HCl (Ultram) 25 mg PO TID PRN PRN Reason: Pain, moderate (4-7) Last Admin: 10/12/18 00:36 Dose: 25 mg - Labs Labs: 10/12/18 08:12 10/12/18 08:12 PT 12.0 SECONDS (9.7-12.2) 10/10/18 18:23 INR 1.1 10/10/18 18:23 APTT 37 SECONDS (21-34) H 10/10/18 18:23
--- NOTE | 2018-10-12 18:05 | CP.PCM.PN ---
Subjective - Date & Time of Evaluation Date of Evaluation: 10/12/18 Time of Evaluation: 11:45 - Subjective Subjective: clinically same Objective - Vital Signs/Intake and Output Vital Signs (last 24 hours): Temp Pulse Resp BP Pulse Ox 98.5 F 84 20 113/61 98 10/12/18 15:10 10/12/18 16:35 10/12/18 15:10 10/12/18 15:10 10/12/18 15:10 Intake and Output: 10/12/18 10/12/18 06:59 18:59 Intake Total 1482 300 Output Total 2200 350 Balance -718 -50 - Medications Medications: Current Medications Heparin Sodium (Porcine) (Heparin) 5,000 units SC Q12 [facility] Last Admin: 10/12/18 10:39 Dose: 5,000 units Cefepime HCl 1 gm/ Dextrose 50 mls @ 100 mls/hr IVPB Q24H [facility]; Protocol Last Admin: 10/12/18 00:37 Dose: 100 mls/hr Dextrose (Dextrose 5% In Water 1000 Ml) 1,000 mls @ 75 mls/hr IV .[id number] [facility] Last Admin: 10/12/18 16:25 Dose: 75 mls/hr Pantoprazole Sodium (Protonix Inj) 40 mg IVP DAILY [facility] Last Admin: 10/12/18 10:38 Dose: 40 mg Tamsulosin HCl (Flomax) 0.4 mg PO DAILY [facility] Last Admin: 10/12/18 10:38 Dose: 0.4 mg Tramadol HCl (Ultram) 25 mg PO TID PRN PRN Reason: Pain, moderate (4-7) Last Admin: 10/12/18 00:36 Dose: 25 mg - Labs Labs: 10/12/18 08:12 10/12/18 08:12 PT 12.0 SECONDS (9.7-12.2) 10/10/18 18:23 INR 1.1 10/10/18 18:23 APTT 37 SECONDS (21-34) H 10/10/18 18:23 - Constitutional Appears: Well - Head Exam Head Exam: ATRAUMATIC, NORMAL INSPECTION, NORMOCEPHALIC - Eye Exam Eye Exam: EOMI, Normal appearance, PERRL Pupil Exam: NORMAL ACCOMODATION, PERRL - ENT Exam ENT Exam: Mucous Membranes Moist, Normal Exam - Neck Exam Neck Exam: Full ROM, Normal Inspection. absent: Lymphadenopathy - Respiratory Exam Respiratory Exam: Decreased Breath Sounds - Cardiovascular Exam Cardiovascular Exam: REGULAR RHYTHM, +S1, +S2 - GI/Abdominal Exam GI & Abdominal Exam: Soft, Diminished Bowel Sounds - Rectal Exam Rectal Exam: Deferred Assessment and Plan - Assessment and Plan (Free Text) Plan: kcl supplentation as jia is much better Continue cefepime Flomax Heparin Follow-up with renal Creatinine improved significantly Follow-up with Dr. Guzman
[2018-10-13 07:46] LABS: INR 1.2; PROTHROMBIN TIME 13.1 SECONDS (9.7-12.2)
[2018-10-13 08:05] LABS: BLOOD UREA NITROGEN 11 mg/dL (9-20); CALCIUM 7.5 mg/dl (8.6-10.4); GFR NON-AFRICAN AMERICAN > 60
[2018-10-13] MEDS: Potassium Chloride 10 mEq ER Tab PO SCH (08:42)
[2018-10-13] MEDS ORDERED: Potassium Chloride 20 mEq ER Tab PO ONE (09:30)
--- NOTE | 2018-10-13 10:17 | CP.PCM.PN ---
Subjective - Date & Time of Evaluation Date of Evaluation: 10/13/18 Time of Evaluation: 10:15 - Subjective Subjective: No cardiac complaints Planned inguinal hernia surgery No CP, fevers, chills, SOB or volume overload Objective - Vital Signs/Intake and Output Vital Signs (last 24 hours): Temp Pulse Resp BP Pulse Ox 98.8 F 78 20 119/64 96 10/13/18 07:00 10/13/18 07:00 10/13/18 07:00 10/13/18 07:00 10/13/18 07:00 Intake and Output: 10/13/18 10/13/18 06:59 18:59 Intake Total 1362 Output Total 2650 Balance -1288 - Medications Medications: Current Medications Cefepime HCl 1 gm/ Dextrose 50 mls @ 100 mls/hr IVPB Q24H [facility]; Protocol Last Admin: 10/13/18 00:10 Dose: 100 mls/hr Pantoprazole Sodium (Protonix Inj) 40 mg IVP DAILY [facility] Last Admin: 10/12/18 10:38 Dose: 40 mg Potassium Chloride (Klor-Con 10) 10 meq PO BRK [facility] Last Admin: 10/13/18 08:42 Dose: 10 meq Tamsulosin HCl (Flomax) 0.4 mg PO DAILY [facility] Last Admin: 10/12/18 10:38 Dose: 0.4 mg Temazepam (Restoril) 15 mg PO HS PRN PRN Reason: insomnia Last Admin: 10/12/18 21:32 Dose: 15 mg Tramadol HCl (Ultram) 25 mg PO TID PRN PRN Reason: Pain, moderate (4-7) Last Admin: 10/12/18 00:36 Dose: 25 mg - Labs Labs: 10/12/18 08:12 10/13/18 06:53 PT 13.1 SECONDS (9.7-12.2) H 10/13/18 06:53 INR 1.2 10/13/18 06:53 APTT 31 SECONDS (21-34) D 10/13/18 06:53 - Constitutional Appears: No Acute Distress, Older Than Stated Age - Head Exam Head Exam: ATRAUMATIC, NORMAL INSPECTION, NORMOCEPHALIC - Eye Exam Eye Exam: EOMI, Normal appearance. absent: Scleral icterus - ENT Exam ENT Exam: Mucous Membranes Moist, Normal Exam - Neck Exam Neck Exam: Full ROM, Normal Inspection. absent: Thyromegaly - Respiratory Exam Respiratory Exam: Clear to Ausculation Bilateral, NORMAL BREATHING PATTERN. absent: Rales, Rhonchi, Wheezes, Respiratory Distress - Cardiovascular Exam Cardiovascular Exam: REGULAR RHYTHM, +S1, +S2. absent: Murmur - GI/Abdominal Exam GI & Abdominal Exam: Soft. absent: Tenderness, Rebound - Extremities Exam Extremities Exam: absent: Calf Tenderness, Pedal Edema - Neurological Exam Neurological Exam: Alert, Awake, Oriented x3 Assessment and Plan - Assessment and Plan (Free Text) Assessment: WILVER Obstructive uropathy Inguinal hernia Creat improved 22 -> 3.4 > 0.7 Hypokalemia: supplement needed Acidosis: improved EKG: ordered and read by me as: NSR, nonspecific ST changes anterior CXR: No infiltrate or congestion Troponin neg for ACS CT abd: noted; hydronephrosis, bladder enlargement, L. inguinal hernia Currently patient does not have any active ischemia, sx's of CHF Echo ordered and images directly viewed by me: Normal LV function and wall motion, Grade 1 DD, normal RV function, dilated IVC without hepatic reflux, Normal PASP LE edema and scrotal edema improved: likely secondary to obstructive uropathy now hall insertion BP is normal Based on the above: patient is acceptable risk to proceed with surgery DVT prophylaxis Monitor BP and HR
--- NOTE | 2018-10-13 10:47 | CP.PCM.PN ---
Subjective - Date & Time of Evaluation Date of Evaluation: 10/13/18 Time of Evaluation: 10:46 - Subjective Subjective: Nephrology Consultation Note: Assessment: Stable Acute Kidney Injury (N17.9) likely due to obs uropathy: resolved Hyperkalemia, hypokalemia, acidosis inguinal hernia, hyperphos, depression, hyponatremia Plan No acute need for renal replacement therapy at this time. Maintain hemodynamics stable. Avoid hypotension. Patient not on ACEI/ARB due to recent WILVER. BP controlled at present stop IVF started flomax daily urology and surgery eval supplemented KCL Do not remove hall unless okay by urology Dose meds/antibiotics for normal GFR. Glycemic control Further work up/management as per primary team Thanks for allowing me to participate in care of your patient. Please call if any Qs. had d/w team Dr Braulio Evans Office: [phone] Chief Complaint; gastritis Reason for consult: Acute Kidney Injury HPI: Pt is a 78 M with hx of depression and agarophobia presented with complaints of pain abdomen and found to have left ingunal hernia and severe obs uropathy with WILVER which is improving well after hall catheter. renal consult for WILVER Denies OTC/herbal meds or NSAIDs No recent iodinated contrast exposure. No obvious episodes of low BP. pt feels better. c/o ankle swelling ROS: Cardiovascular: No chest pain. Pulmonary: No shortness of breath Gastrointestinal: denies abdominal pain No nausea. No vomiting. Genitourinary: No pain while urinating. Denies blood in urine. has hall All other negative except as mentioned in HPI Physical Examination: General Appearance: Comfortable, in no acute respiratory distress, co-operative . Vitals reviewed and noted as below Head; Atraumatic, normocephalic ENT: no ulcers no thrush. Tongue is midline. Oropharynx: no rash or ulcers. EYES: Pupils are equal, round and reactive to light accommodation. Eye muscles and extraocular movement intact. Sclera is anicteric. Neck; supple no lymphadenopathy, no thyromegaly or bruit Lungs: Normal respiratory rate/effort. Breath sounds bilateral equal and clear Heart: Normal rate. s1s2 normal. No rub or gallop. Extremities: trace edema. No varicose veins Neurological: Patient is alert, awake and oriented to person, place and time. No focal deficit. Strength bilateral appropriate and equal Skin: Warm and dry. Normal turgor. No rash. Palpitation: Normal elasticity for age Abdomen: Abdomen is soft. Bowel sounds +. There is no abdominal tenderness, no guarding/rigidity no organomegaly Psych: normal insight and normal affect/mood MSK: no joint tenderness or swelling. Digits and nails normal, no deformity : kidney or bladder not palpable. has hall. left inguinal hernia + Labs/imaging reviewed. Past medical history, past surgical history, family history, social history, allergy reviewed and noted as below Family hx: no hx of CKD. Rest non-contributory Objective - Vital Signs/Intake and Output Vital Signs (last 24 hours): Temp Pulse Resp BP Pulse Ox 98.8 F 78 20 119/64 96 10/13/18 07:00 10/13/18 07:00 10/13/18 07:00 10/13/18 07:00 10/13/18 07:00 Intake and Output: 10/13/18 10/13/18 06:59 18:59 Intake Total 1362 Output Total 2650 Balance -1288 - Medications Medications: Current Medications Cefepime HCl 1 gm/ Dextrose 50 mls @ 100 mls/hr IVPB Q24H [facility]; Protocol Last Admin: 10/13/18 00:10 Dose: 100 mls/hr Pantoprazole Sodium (Protonix Inj) 40 mg IVP DAILY [facility] Last Admin: 10/13/18 10:25 Dose: Not Given Potassium Chloride (Klor-Con 10) 10 meq PO BRK [facility] Last Admin: 10/13/18 08:42 Dose: 10 meq Tamsulosin HCl (Flomax) 0.4 mg PO DAILY [facility] Last Admin: 10/13/18 10:25 Dose: Not Given Temazepam (Restoril) 15 mg PO HS PRN PRN Reason: insomnia Last Admin: 10/12/18 21:32 Dose: 15 mg Tramadol HCl (Ultram) 25 mg PO TID PRN PRN Reason: Pain, moderate (4-7) Last Admin: 10/12/18 00:36 Dose: 25 mg - Labs Labs: 10/12/18 08:12 10/13/18 06:53 PT 13.1 SECONDS (9.7-12.2) H 10/13/18 06:53 INR 1.2 10/13/18 06:53 APTT 31 SECONDS (21-34) D 10/13/18 06:53
[2018-10-13] MEDS ORDERED: Propofol 10 mg/ml Inj (20 ML) ONE (11:37)
[2018-10-13] MEDS ORDERED: Bupivacaine HCl 0.5% PF (30 ml) Inj ONE (11:56)
[2018-10-13] MEDS ORDERED: Bupivacaine-Epi 0.5%-1:200,000 PF Inj IJ ONE (11:56)
[2018-10-13] MEDS ORDERED: Vancomycin 1 gm/D5W 200 ml 1 GM/200 ML BAG IVPB ONE (11:58)
[2018-10-13] MEDS ORDERED: Neostigmine Methylsulfate 3mg/3ml Syringe IV ONE (12:33)
[2018-10-13] MEDS: Dextrose 5%/Lactated Ringer's 1,000 ML IV SCH (12:35)
[2018-10-13] MEDS ORDERED: HYDROmorphone 0.5 mg/0.5 ml ISec IVP PRN (13:24)
--- NOTE | 2018-10-13 13:24 | PCM.SURG1 ---
Surgeon's Initial Post Op Note - Surgeon's Notes Surgeon: Dr. Early Tube Drawing Supervisor: Dr. Sharpe PGY-3 Type of Anesthesia: General Endo Pre-Operative Diagnosis: Left Incarcerated Inguinal Hernia Operative Findings: see operative report Post-Operative Diagnosis: Same Operation Performed: Repair of Left Incarcerated Inguinal Hernia with mesh Specimen/Specimens Removed: none Estimated Blood Loss: EBL {In ML}: 50 Blood Products Given: N/A Drains Used: King Post-Op Condition: Good Date of Surgery/Procedure: 10/13/18 Time of Surgery/Procedure: 13:24
[2018-10-13 15:03] VITALS: RESP 20
[2018-10-13] MEDS ORDERED: Oxycodone/Acetaminophen 5/325 mg Tab PO PRN (15:19)
--- NOTE | 2018-10-13 16:29 | CP.PCM.PN ---
Subjective - Date & Time of Evaluation Date of Evaluation: 10/13/18 Time of Evaluation: 10:45 - Subjective Subjective: clinically same Objective - Vital Signs/Intake and Output Vital Signs (last 24 hours): Temp Pulse Resp BP Pulse Ox 97.5 F L 80 20 158/65 H 99 10/13/18 16:01 10/13/18 16:28 10/13/18 16:01 10/13/18 16:01 10/13/18 16:01 Intake and Output: 10/13/18 10/13/18 06:59 18:59 Intake Total 1362 900 Output Total 2650 2260 Balance -1288 -1360 - Medications Medications: Current Medications Enoxaparin Sodium (Lovenox) 40 mg SC DAILY [facility] Cefepime HCl 1 gm/ Dextrose 50 mls @ 100 mls/hr IVPB Q24H [facility]; Protocol Last Admin: 10/13/18 00:10 Dose: 100 mls/hr Dextrose/Lactated Ringer's (Dextrose 5%/Lactated Ringer's) 1,000 mls @ 50 mls/hr IV .Q20H [facility] Stop: 10/14/18 12:31 Last Admin: 10/13/18 12:35 Dose: Not Given Pantoprazole Sodium (Protonix Inj) 40 mg IVP DAILY [facility] Last Admin: 10/13/18 10:25 Dose: Not Given Potassium Chloride (Klor-Con 10) 10 meq PO BRK [facility] Last Admin: 10/13/18 08:42 Dose: 10 meq Tamsulosin HCl (Flomax) 0.4 mg PO DAILY [facility] Last Admin: 10/13/18 10:25 Dose: Not Given Temazepam (Restoril) 15 mg PO HS PRN PRN Reason: insomnia Last Admin: 10/12/18 21:32 Dose: 15 mg Tramadol HCl (Ultram) 25 mg PO TID PRN PRN Reason: Pain, moderate (4-7) Last Admin: 10/12/18 00:36 Dose: 25 mg - Labs Labs: 10/12/18 08:12 10/13/18 06:53 PT 13.1 SECONDS (9.7-12.2) H 10/13/18 06:53 INR 1.2 10/13/18 06:53 APTT 31 SECONDS (21-34) D 10/13/18 06:53 - Constitutional Appears: Well - Head Exam Head Exam: ATRAUMATIC, NORMAL INSPECTION, NORMOCEPHALIC - Eye Exam Eye Exam: EOMI, Normal appearance, PERRL Pupil Exam: NORMAL ACCOMODATION, PERRL - ENT Exam ENT Exam: Mucous Membranes Moist, Normal Exam - Neck Exam Neck Exam: Full ROM, Normal Inspection. absent: Lymphadenopathy - Respiratory Exam Respiratory Exam: Decreased Breath Sounds - Cardiovascular Exam Cardiovascular Exam: REGULAR RHYTHM, +S1, +S2 - GI/Abdominal Exam GI & Abdominal Exam: Soft, Diminished Bowel Sounds - Rectal Exam Rectal Exam: Deferred Assessment and Plan - Assessment and Plan (Free Text) Plan: s/p tavon g for ingunkal hernia d/w cardio clerance cardio followup las and med reviweed
[2018-10-13] MEDS: Tramadol 25 mg PO PRN (16:48)
--- NOTE | 2018-10-13 22:58 | OP ---
PROCEDURE DATE: 10/13/2018 PREOPERATIVE DIAGNOSIS: Incarcerated recurrent left inguinal hernia. POSTOPERATIVE DIAGNOSIS: Incarcerated recurrent left inguinal hernia. PROCEDURE CARRIED OUT: Chronically incarcerated recurrent left inguinal hernia. SURGEON: Sulaiman Early Jr., MD [employer] INSTRUCTOR: Beverley Sharpe DO ANESTHESIOLOGIST: Mr. Rendon. INDICATIONS: The patient is an 78-year-old man, admitted with renal failure, incarcerated hernia, a huge 9-month size bladder. OPERATIVE FINDINGS: Chronically incarcerated recurrent hernia. The entire sigmoid colon inside the sac of scrotum. The drain was left in the scrotum, suctioned and drained and brought out through a separate incision. DESCRIPTION OF PROCEDURE: The patient was given general anesthesia and intravenous antibiotics. The hernia was unable to be reduced. We made an incision exposing this, we identified the old mesh. We then were able to eventually large size of the defect and placed the bowel back into the peritoneal cavity. We then used an 11 x 14 Ventrio mesh. It was then sutured and packed into position and then the fascia was closed on top of this. The skin was then closed. Blood loss for the procedure was 50 mL. The drain was left into the pelvis. Subcuticular closure. Marcaine was injected prior to terminating the operation. The patient tolerated the procedure well, but this was a very large hernia with incarcerated bowel, which we were able to reduce peritoneum and closed the large defect both directly and with the use of reinforcing mesh. Sulaiman Early Jr., MD
[2018-10-14 07:14] LABS: HEMOGLOBIN 12.5 g/dL (12.0-18.0); MEAN CELL VOLUME 87.9 fL (80.0-94.0); MEAN CORPUSCULAR HEMOGLOBIN 30.8 pg (27.0-31.0); MEAN CORPUSCULAR HGB CONC 35.1 g/dL (33.0-37.0); RBC 4.06 Mil/uL (4.40-5.90); RED CELL DISTRIBUTION WIDTH 13.4 % (11.5-14.5)
[2018-10-14 07:16] LABS: WHITE BLOOD COUNT 8.7 K/uL (4.8-10.8)
[2018-10-14 07:23] LABS: BLOOD UREA NITROGEN 6 mg/dL (9-20); GFR NON-AFRICAN AMERICAN > 60
[2018-10-14] MEDS: Tramadol 25 mg PO PRN (07:54)
[2018-10-14] MEDS: Potassium Chloride 10 mEq ER Tab PO SCH (07:56)
[2018-10-14] MEDS: Dextrose 5%/Lactated Ringer's 1,000 ML IV SCH (08:06)
[2018-10-14] MEDS: Enoxaparin 40 mg Syringe SC SCH (09:23)
--- NOTE | 2018-10-14 09:58 | CP.PCM.CON ---
History of Present Illness - History of Present Illness History of Present Illness: Palliative consult requested by Doctor Amena Avalos for goals of care discussion Patient is a 78 yo male admitted from home with abdominal and scrotal pain, retching, vomiting X few months. As result , patient had weight loss. patient also admitted to pain to large left inguinal hernia and scrotal swelling. Patient is incontinent of urine and felt like not being able to completely empty his bladder. Patient has not seek Medical help due to Hx of Agrofobia. Eventually his friend convinced him to come to ED. patient is S/P Left hernia repair on 10/13/18. per nursing, patient requested Palliative consult. PMH: Agrofobia, Left hernia repair 2004 which re occurred soon after and got bigger over time. Soc. Hx: retired, lives with significant other, never , no children Fam. hx: denied Review of Systems - Constitutional Constitutional: absent: As Per HPI, Anorexia, Chills, Daytime Sleepiness, Excessive Sweating, Fatigue, Fever, Frequent Falls, Headache, Increased Appetite, Lethargy, Malaise, Night Sweats, Snoring, Sleep Apnea, Weight Gain, Weight Loss, Weakness, Other - EENT Eyes: absent: As Per HPI, Blind Spots, Blurred Vision, Change in Vision, Decreased Night Vision, Diplopia, Discharge, Dry Eye, Exophthalmos, Floaters, Irritation, Itchy Eyes, Loss of Peripheral Vision, Pain, Photophobia, Requires Corrective Lenses, Sees Flashes, Spots in Vision, Tunnel Vision, Other Visual Disturbances, Loss of Vision, Other Ears: absent: As Per HPI, Decreased Hearing, Ear Discharge, Ear Pain, Tinnitus, Abnormal Hearing, Disequilibrium, Dizziness, Other Nose/Mouth/Throat: absent: As Per HPI, Epistaxis, Nasal Congestion, Nasal Discharge, Nasal Obstruction, Nasal Trauma, Nose Pain, Post Nasal Drip, Sinus Pain, Sinus Pressure, Bleeding Gums, Change in Voice, Dental Pain, Dry Mouth, Dysphagia, Halitosis, Hoarsness, Lip Swelling, Mouth Lesions, Mouth Pain, Odynophagia, Sore Throat, Throat Swelling, Tongue Swelling, Facial Pain, Neck Pain, Neck Mass, Other - Cardiovascular Cardiovascular: absent: As Per HPI, Acrocyanosis, Chest Pain, Chest Pain at Rest, Chest Pain with Activity, Claudication, Diaphoresis, Dyspnea, Dyspnea on Exertion, Edema, Irregular Heart Rhythm, Pain Radiating to Arm/Neck/Jaw, Leg Edema, Leg Ulcers, Lightheadedness, Orthopnea, Palpitations, Paroxysmal Nocturnal Dyspnea, Pedal Edema, Radiating Pain, Rapid Heart Rate, Slow Heart Rate, Syncope, Other - Respiratory Respiratory: absent: As Per HPI, Cough, Dyspnea, Hemoptysis, Dyspnea on Exertion, Wheezing, Snoring, Stridor, Pain on Inspiration, Chest Congestion, Excessive Mucous Production, Change in Mucous Color, Pain with Coughing, Other - Gastrointestinal Gastrointestinal: Belching, Vomiting - Genitourinary Genitourinary: Difficulty Urinating, Urinary Incontinence, Voiding Freq/Small Amts - Musculoskeletal Musculoskeletal: absent: As Per HPI, Abnormal Gait, Arthralgias, Atrophy, Back Pain, Deformity, Joint Swelling, Limited Range of Motion, Loss of Height, Muscle Cramps, Muscle Weakness, Myalgias, Neck Pain, Numbness, Radiating Pain into Limb, Stiffness, Tingling, Other - Integumentary Integumentary: absent: As Per HPI, Acne, Alopecia, Bleeding Lesions, Change in Hair, Change in Nails, Change in Pigmentation, Changing Lesions, Dry Skin, Erythema, Furuncle, Hirsutism, Lesions, New Lesions, Non-Healing Lesions, Photosensitivity, Pruritus, Rash, Skin Pain, Skin Ulcer, Sores, Striae, Swelling, Unusual Bruising, Wounds, Jaundice, Other - Neurological Additional comments: Agrofobia - Psychiatric Psychiatric: absent: As Per HPI, Abnormal Sleep Pattern, Anhedonia, Anxiety, Auditory Hallucinations, Behavioral Changes, Change in Appetite, Change in Libido, Confusion, Depression, Difficulty Concentrating, Hallucinations, Homicidal Ideation, Hopelessness, Irritability, Memory Loss, Mood Swings, Panic Attacks, Paranoia, Suicidal Ideation, Visual Hallucinations, Tactile Hallucinations, Other - Endocrine Endocrine: absent: As Per HPI, Change in Body Appearance, Change in Libido, Cold Intolorance, Deepening of Voice, Excessive Sweating, Fatigue, Flushing, Heat Intolorance, Increase in Ring/Shoe/Hat Size, Palpitations, Polydipsia, Polyphagia, Polyuria, Other - Hematologic/Lymphatic Hematologic: absent: As Per HPI, Easy Bleeding, Easy Bruising, Lymphadenopathy, Other Past Patient History - Past Medical History & Family History Past Medical History?: Yes - Past Social History Smoking Status: Never Smoked - CARDIAC Hx Cardiac Disorders: No - PULMONARY Hx Respiratory Disorders: Yes Hx Asthma: Yes - NEUROLOGICAL Hx Neurological Disorder: No - HEENT Hx HEENT Problems: No - RENAL Hx Chronic Kidney Disease: No Other/Comment: creatinine 221 - ENDOCRINE/METABOLIC Hx Endocrine Disorders: No - HEMATOLOGICAL/ONCOLOGICAL Hx Blood Disorders: No - INTEGUMENTARY Hx Dermatological Problems: No - MUSCULOSKELETAL/RHEUMATOLOGICAL Hx Falls: Yes - GASTROINTESTINAL Hx Gastritis: Yes - GENITOURINARY/GYNECOLOGICAL Hx Genitourinary Disorders: Yes Hx Prostate Cancer: Yes - PSYCHIATRIC Hx Substance Use: No - SURGICAL HISTORY Hx Surgeries: Yes Hx Herniorrhaphy: Yes (L inguinal hernia ) - ANESTHESIA Hx Anesthesia: Yes Hx Anesthesia Reactions: No Meds Allergies/Adverse Reactions: Allergies Allergy/AdvReac Type Severity Reaction Status Date / Time No Known Allergies Allergy Verified 10/10/18 17:19 - Medications Medications: Current Medications Enoxaparin Sodium (Lovenox) 40 mg SC DAILY [facility] Last Admin: 10/14/18 09:23 Dose: 40 mg Cefepime HCl 1 gm/ Dextrose 50 mls @ 100 mls/hr IVPB Q24H [facility]; Protocol Last Admin: 10/14/18 00:16 Dose: 100 mls/hr Magnesium Sulfate/Dextrose (Magnesium Sulfate 1 Gm/100 Ml D5w) 1 gm in 100 mls @ 300 mls/hr IVPB Q30M [facility] Stop: 10/14/18 10:34 Pantoprazole Sodium (Protonix Ec Tab) 40 mg PO DAILY [facility] Potassium Chloride (Klor-Con 10) 10 meq PO BRK [facility] Last Admin: 10/14/18 07:56 Dose: 10 meq Tamsulosin HCl (Flomax) 0.4 mg PO DAILY [facility] Last Admin: 10/13/18 10:25 Dose: Not Given Temazepam (Restoril) 15 mg PO HS PRN PRN Reason: insomnia Last Admin: 10/13/18 21:36 Dose: 15 mg Tramadol HCl (Ultram) 25 mg PO TID PRN PRN Reason: Pain, moderate (4-7) Last Admin: 10/14/18 07:54 Dose: 25 mg Physical Exam - Head Exam Head Exam: ATRAUMATIC, NORMAL INSPECTION, NORMOCEPHALIC - Eye Exam Eye Exam: EOMI, Normal appearance, PERRL Pupil Exam: NORMAL ACCOMODATION, PERRL - ENT Exam ENT Exam: Mucous Membranes Moist, Normal Exam - Neck Exam Neck exam: Positive for: Normal Inspection - Respiratory Exam Respiratory Exam: Decreased Breath Sounds, Clear to Auscultation Bilateral, NORMAL BREATHING PATTERN - Cardiovascular Exam Cardiovascular Exam: REGULAR RHYTHM - GI/Abdominal Exam GI & Abdominal Exam: Guarding, Hypoactive Bowel Sounds - Rectal Exam Rectal Exam: Deferred - Exam Additional comments: Rosenthal cath, left lower abdomen dressing - Extremities Exam Extremities exam: Positive for: normal inspection - Back Exam Back exam: NORMAL INSPECTION - Neurological Exam Neurological exam: Alert, Oriented x3, Reflexes Normal - Psychiatric Exam Psychiatric exam: Normal Affect, Normal Mood - Skin Skin Exam: Dry, Intact, Normal Color, Warm Results - Vital Signs Recent Vital Signs: Last Vital Signs Temp 98.1 F 10/14/18 07:00 Pulse 78 10/14/18 07:00 Resp 20 10/14/18 07:00 BP 116/68 10/14/18 07:00 Pulse Ox 97 10/14/18 07:00 - Labs Result Diagrams: 10/14/18 06:46 10/14/18 06:46 Labs: Laboratory Results - last 24 hr 10/14/18 10/14/18 06:46 06:46 WBC 8.7 D RBC 4.06 L Hgb 12.5 Hct 35.7 MCV 87.9 MCH 30.8 MCHC 35.1 RDW 13.4 Plt Count 303 MPV 8.0 Sodium 132 Potassium 3.8 Chloride 99 Carbon Dioxide 25 Anion Gap 12 BUN 6 L Creatinine 0.6 L Est GFR ( Amer) > 60 Est GFR (Non-Af Amer) > 60 Random Glucose 103 Calcium 8.0 L Phosphorus 3.0 Magnesium 1.4 L Assessment & Plan - Assessment and Plan (Free Text) Assessment: Palliative consult Full Code, no Advance Directive on chart, PPS 50% I reviewed Medical records, all diagnostic studies, examined and interviewed patient in the bed Patient is alert, oriented X 3 with speech that is clear and appropriate affect. S/P left hernia repair Day # 1. patient looks pale, but it is his normal complexion. Hb 12.5. Breathing is shallow, and regular. Denies cough. Abdomen soft, absent bowel sounds. There is bulky dressing to left inguinal area. Area very tender to touch. patient denies passing flatus. he had PO intake and tolerated it well. Rosenthal cath at bed side, good urine output. Flomax on board.Patient has not been OOB to chair , just yet. Patient reports pain of 5-6/10. Pain is localized, deep and burning, relieved by pain meds ( Tramadol PRN). Goals of care discussed. Patient is looking toward recovery and return to his normal life style. hx of Agrofobia prevents him from leaving his apartment as often as he would. Patient reports taking meds for it from " [facility]" place, but has not had meds since the admission. Patient requested to see Psychiatrist while was here. We discussed measures to promote good bowel and pulmonary functions . patient was instructed on cough and breath exercises and light mobility with assistance. he stated understanding. I offered Code status discussion and introduce POLST. Patient was not ready to discuss it at this time. I offered support. Impression * S/P Hernia repair * Surgical pain * Limited mobility due to pain * At risk for constipation due to pain meds and limited mobility * Hx of Agrofobia, requesting Psych eval before discharge Suggestions * Continue Tramadol Po PRn Pain * Assist OOB to chair daily * Consider removing Rosenthal cath * Clear liquids and soft diet only, until first BM * Reinforce Incentive Spirometry use * Psych evaluation for Agrofobia management * RAFAEL planing * Full Code Palliative care will sign off at this time. Please re consult as needed Advance care planing 30 min
[2018-10-14] MEDS: Pantoprazole 40 mg EC Tab PO SCH (10:42)
[2018-10-14] MEDS: Magnesium Sulfate 1 gm in D5W 1 GM/100 ML BAG IVPB SCH ×2 (10:52→11:15)
--- NOTE | 2018-10-14 11:55 | CP.PCM.PN ---
Subjective - Date & Time of Evaluation Date of Evaluation: 10/14/18 Time of Evaluation: 11:54 - Subjective Subjective: Events reviewed Objective - Vital Signs/Intake and Output Vital Signs (last 24 hours): Temp Pulse Resp BP Pulse Ox 98.1 F 78 20 116/68 97 10/14/18 07:00 10/14/18 07:00 10/14/18 07:00 10/14/18 07:00 10/14/18 07:00 Intake and Output: 10/14/18 10/14/18 06:59 18:59 Intake Total 100 Output Total 2211 Balance -2111 - Medications Medications: Current Medications Enoxaparin Sodium (Lovenox) 40 mg SC DAILY [facility] Last Admin: 10/14/18 09:23 Dose: 40 mg Cefepime HCl 1 gm/ Dextrose 50 mls @ 100 mls/hr IVPB Q24H [facility]; Protocol Last Admin: 10/14/18 00:16 Dose: 100 mls/hr Pantoprazole Sodium (Protonix Ec Tab) 40 mg PO DAILY [facility] Last Admin: 10/14/18 10:42 Dose: Not Given Potassium Chloride (Klor-Con 10) 10 meq PO BRK [facility] Last Admin: 10/14/18 07:56 Dose: 10 meq Tamsulosin HCl (Flomax) 0.4 mg PO DAILY [facility] Last Admin: 10/14/18 09:42 Dose: 0.4 mg Temazepam (Restoril) 15 mg PO HS PRN PRN Reason: insomnia Last Admin: 10/13/18 21:36 Dose: 15 mg Tramadol HCl (Ultram) 25 mg PO TID PRN PRN Reason: Pain, moderate (4-7) Last Admin: 10/14/18 07:54 Dose: 25 mg - Labs Labs: 10/14/18 06:46 10/14/18 06:46 PT 13.1 SECONDS (9.7-12.2) H 10/13/18 06:53 INR 1.2 10/13/18 06:53 APTT 31 SECONDS (21-34) D 10/13/18 06:53 Assessment and Plan - Assessment and Plan (Free Text) Assessment: - Constitutional Appears: No Acute Distress, Older Than Stated Age - Head Exam Head Exam: ATRAUMATIC, NORMAL INSPECTION, NORMOCEPHALIC - Eye Exam Eye Exam: EOMI, Normal appearance. absent: Scleral icterus - ENT Exam ENT Exam: Mucous Membranes Moist, Normal Exam - Neck Exam Neck Exam: Full ROM, Normal Inspection. absent: Thyromegaly - Respiratory Exam Respiratory Exam: Clear to Ausculation Bilateral, NORMAL BREATHING PATTERN. absent: Rales, Rhonchi, Wheezes, Respiratory Distress - Cardiovascular Exam Cardiovascular Exam: REGULAR RHYTHM, +S1, +S2. absent: Murmur - GI/Abdominal Exam GI & Abdominal Exam: Soft. absent: Tenderness, Rebound; Post op wound dressing c/D/I - Extremities Exam Extremities Exam: absent: Calf Tenderness, Pedal Edema - Neurological Exam Neurological Exam: Alert, Awake, Oriented x3 Assessment and Plan - Assessment and Plan (Free Text) Assessment: WILVER Obstructive uropathy Inguinal hernia POD # 1 repair Creat improved 22 -> 3.4 > 0.7 Hypokalemia: supplement needed Acidosis: improved EKG: ordered and read by me as: NSR, nonspecific ST changes anterior CXR: No infiltrate or congestion Troponin neg for ACS CT abd: noted; hydronephrosis, bladder enlargement, L. inguinal hernia Echo ordered and images directly viewed by me: Normal LV function and wall motio n, Grade 1 DD, normal RV function, dilated IVC without hepatic reflux, Normal PASP LE edema and scrotal edema improved: likely secondary to obstructive uropathy now hall insertion BP is normal Call back as needed
--- NOTE | 2018-10-14 12:41 | CARD ---
APPROVED REPORT Date of service: 10/13/2018 EXAM: Two-dimensional and M-mode echocardiogram with Doppler and color Doppler. INDICATION pre op 2D DIMENSIONS IVSd0.8 (0.7-1.1cm)LVDd4.2 (3.9-5.9cm) PWd0.9 (0.7-1.1cm)LVDs3.0 (2.5-4.0cm) FS (%) 30.0 %LVEF (%)57.6 (>50%) IVC0.00 cm M-Mode DIMENSIONS Left Atrium (MM)2.53 (2.5-4.0cm)IVSd0.72 (0.7-1.1cm) Aortic Root3.33 (2.2-3.7cm)LVDd5.86 (4.0-5.6cm) Aortic Cusp Exc.1.42 (1.5-2.0cm)PWd0.81 (0.7-1.1cm) FS (%) 45 %LVDs3.22 (2.0-3.8cm) TAPSE22.78 cmLVEF (%)76 (>50%) Mitral Valve MV E Jzmydtly75.8cm/sMV A Ndjhgrcn80.6cm/sE/A ratio0.9 TDI Lateral E' Peak V8.93cm/sMedial E' Peak V8.09cm/sE/Lateral E'9.6 E/Medial E'10.6 Tricuspid Valve TR Peak Kuogmrtz507sh/sTR Peak Gr.[id number] LEFT VENTRICLE The left ventricle is normal size. There is normal left ventricular wall thickness. The left ventricular systolic function is normal. The left ventricular ejection fraction is within the normal range. There is normal LV segmental wall motion. Transmitral Doppler flow pattern is Grade I-abnormal relaxation pattern. Normal left atrial pressure by Tissue Doppler. RIGHT VENTRICLE The right ventricle is mildly to moderately dilated. The right ventricular systolic function is normal. ATRIA The left atrium size is normal. The right atrium is moderately dilated. AORTIC VALVE The aortic valve is normal in structure. No aortic regurgitation is present. There is no aortic valvular stenosis. MITRAL VALVE The mitral valve is normal in structure. There is no mitral valve regurgitation noted. TRICUSPID VALVE The tricuspid valve is normal in structure. There is moderate tricuspid regurgitation. Right ventricular systolic pressure is estimated at - 53 mmHg. There is moderate pulmonary hypertension. PULMONIC VALVE The pulmonic valve is not well visualized. GREAT VESSELS The aortic root is normal in size. Dilated IVC with poor inspiration collapse is consistent with elevated right atrial pressure. PERICARDIAL EFFUSION There is no pericardial effusion. <Conclusion> The left ventricular systolic function is normal. There is normal LV segmental wall motion. Grade I- diastolic dysfunction. Normal left atrial pressure by Tissue Doppler. The right ventricle is mildly to moderately dilated. The right ventricular systolic function is normal. The right atrium is moderately dilated. There is moderate tricuspid regurgitation. Right ventricular systolic pressure is estimated at - 53 mmHg compatible with moderate pulmonary hypertension. Dilated IVC with poor inspiration collapse is consistent with elevated right atrial pressure. There is no pericardial effusion.
[2018-10-14] MEDS ORDERED: Magnesium Sulfate 1 gm in D5W 1 GM/100 ML BAG IVPB SCH (13:00)
--- NOTE | 2018-10-14 14:34 | CP.PCM.PN ---
Subjective - Date & Time of Evaluation Date of Evaluation: 10/14/18 Time of Evaluation: 10:00 - Subjective Subjective: Surgery: Dr. Early Pt seen and examined. No acute overnight events. States he feels well and admits to some post-op pain around the incision in the Left groin. Pt admits to tolerating his liquids and denies nausea/vomiting, fevers/chills. Admits to flatus but denies BM. Objective - Vital Signs/Intake and Output Vital Signs (last 24 hours): Temp Pulse Resp BP Pulse Ox 98.1 F 78 20 116/68 97 10/14/18 07:00 10/14/18 07:00 10/14/18 07:00 10/14/18 07:00 10/14/18 07:00 Intake and Output: 10/14/18 10/14/18 06:59 18:59 Intake Total 100 Output Total 2211 Balance -2111 - Medications Medications: Current Medications Enoxaparin Sodium (Lovenox) 40 mg SC DAILY [facility] Last Admin: 10/14/18 09:23 Dose: 40 mg Cefepime HCl 1 gm/ Dextrose 50 mls @ 100 mls/hr IVPB Q24H [facility]; Protocol Last Admin: 10/14/18 00:16 Dose: 100 mls/hr Magnesium Oxide (Mag-Ox) 400 mg PO ONCE ONE Stop: 10/14/18 14:28 Pantoprazole Sodium (Protonix Ec Tab) 40 mg PO DAILY [facility] Last Admin: 10/14/18 10:42 Dose: Not Given Potassium Chloride (Klor-Con 10) 10 meq PO BRK [facility] Last Admin: 10/14/18 07:56 Dose: 10 meq Senna/Docusate Sodium (Senokot S 50 Mg-8.6 Mg) 1 tab PO DAILY [facility] Stop: 10/17/18 14:31 Tamsulosin HCl (Flomax) 0.4 mg PO DAILY [facility] Last Admin: 10/14/18 09:42 Dose: 0.4 mg Temazepam (Restoril) 15 mg PO HS PRN PRN Reason: insomnia Last Admin: 10/13/18 21:36 Dose: 15 mg Tramadol HCl (Ultram) 25 mg PO TID PRN PRN Reason: Pain, moderate (4-7) Last Admin: 10/14/18 07:54 Dose: 25 mg - Labs Labs: 10/14/18 06:46 10/14/18 06:46 PT 13.1 SECONDS (9.7-12.2) H 10/13/18 06:53 INR 1.2 10/13/18 06:53 APTT 31 SECONDS (21-34) D 10/13/18 06:53 - Constitutional Appears: Well, No Acute Distress - Head Exam Head Exam: ATRAUMATIC, NORMOCEPHALIC - ENT Exam ENT Exam: Mucous Membranes Moist - Respiratory Exam Respiratory Exam: NORMAL BREATHING PATTERN - Cardiovascular Exam Cardiovascular Exam: RRR - GI/Abdominal Exam GI & Abdominal Exam: Soft, Tenderness (LLQ & Left inguinal region around the incision; dressing clean/dry/intact ). absent: Distended, Guarding, Rebound - Neurological Exam Neurological Exam: Alert, Awake, Oriented x3 - Skin Skin Exam: Dry, Intact Assessment and Plan - Assessment and Plan (Free Text) Assessment: 78M s/p L inguinal hernia repair; POD#1 Plan: - will advance diet slowly; start FLD - pain control - monitor drain output - PT for ambulation/deconditioning - d/w Dr. Nneka Shrape
--- NOTE | 2018-10-14 15:06 | CP.PCM.PN ---
Subjective - Date & Time of Evaluation Date of Evaluation: 10/14/18 Time of Evaluation: 09:45 - Subjective Subjective: clinically same Objective - Vital Signs/Intake and Output Vital Signs (last 24 hours): Temp Pulse Resp BP Pulse Ox 98.1 F 78 20 116/68 97 10/14/18 07:00 10/14/18 07:00 10/14/18 07:00 10/14/18 07:00 10/14/18 07:00 Intake and Output: 10/14/18 10/14/18 06:59 18:59 Intake Total 100 Output Total 2211 Balance -2111 - Medications Medications: Current Medications Enoxaparin Sodium (Lovenox) 40 mg SC DAILY [facility] Last Admin: 10/14/18 09:23 Dose: 40 mg Cefepime HCl 1 gm/ Dextrose 50 mls @ 100 mls/hr IVPB Q24H [facility]; Protocol Last Admin: 10/14/18 00:16 Dose: 100 mls/hr Magnesium Oxide (Mag-Ox) 400 mg PO ONCE [facility] Stop: 10/14/18 16:01 Pantoprazole Sodium (Protonix Ec Tab) 40 mg PO DAILY [facility] Last Admin: 10/14/18 10:42 Dose: Not Given Potassium Chloride (Klor-Con 10) 10 meq PO BRK [facility] Last Admin: 10/14/18 07:56 Dose: 10 meq Senna/Docusate Sodium (Senokot S 50 Mg-8.6 Mg) 1 tab PO DAILY [facility] Stop: 10/17/18 15:31 Tamsulosin HCl (Flomax) 0.4 mg PO DAILY [facility] Last Admin: 10/14/18 09:42 Dose: 0.4 mg Temazepam (Restoril) 15 mg PO HS PRN PRN Reason: insomnia Last Admin: 10/13/18 21:36 Dose: 15 mg Tramadol HCl (Ultram) 25 mg PO TID PRN PRN Reason: Pain, moderate (4-7) Last Admin: 10/14/18 07:54 Dose: 25 mg - Labs Labs: 10/14/18 06:46 10/14/18 06:46 PT 13.1 SECONDS (9.7-12.2) H 10/13/18 06:53 INR 1.2 10/13/18 06:53 APTT 31 SECONDS (21-34) D 10/13/18 06:53 - Constitutional Appears: Well - Head Exam Head Exam: ATRAUMATIC, NORMAL INSPECTION, NORMOCEPHALIC - Eye Exam Eye Exam: EOMI, Normal appearance, PERRL Pupil Exam: NORMAL ACCOMODATION, PERRL - ENT Exam ENT Exam: Mucous Membranes Moist, Normal Exam - Neck Exam Neck Exam: Full ROM, Normal Inspection. absent: Lymphadenopathy - Respiratory Exam Respiratory Exam: Decreased Breath Sounds - Cardiovascular Exam Cardiovascular Exam: REGULAR RHYTHM, +S1, +S2 - GI/Abdominal Exam GI & Abdominal Exam: Soft, Diminished Bowel Sounds - Rectal Exam Rectal Exam: Deferred
[2018-10-14] MEDS ORDERED: Magnesium Oxide 400 mg Tab UD PO ONE (16:00)
--- NOTE | 2018-10-14 16:13 | CP.PCM.PN ---
Subjective - Date & Time of Evaluation Date of Evaluation: 10/14/18 Time of Evaluation: 16:12 - Subjective Subjective: Nephrology Consultation Note: Assessment: Stable Acute Kidney Injury (N17.9) likely due to obs uropathy: resolved Hyperkalemia, hypokalemia, acidosis inguinal hernia s/p repair, hyperphos, depression, hyponatremia Plan No acute need for renal replacement therapy at this time. Maintain hemodynamics stable. Avoid hypotension. Patient not on ACEI/ARB due to recent WILVER. BP controlled at present stop IVF started flomax daily urology and surgery eval supplemented KCL and lytes as needed Do not remove hall unless okay by urology Dose meds/antibiotics for normal GFR. Glycemic control Further work up/management as per primary team Thanks for allowing me to participate in care of your patient. Please call if any Qs. will follow as needed. Dr Braulio Evans Office: [phone] Chief Complaint; gastritis Reason for consult: Acute Kidney Injury HPI: Pt is a 78 M with hx of depression and agarophobia presented with complaints of pain abdomen and found to have left ingunal hernia and severe obs uropathy with WILVER which is improving well after hall catheter. renal consult for WILVER Denies OTC/herbal meds or NSAIDs No recent iodinated contrast exposure. No obvious episodes of low BP. pt feels better. c/o ankle swelling ROS: Cardiovascular: No chest pain. Pulmonary: No shortness of breath Gastrointestinal: denies abdominal pain No nausea. No vomiting. Genitourinary: No pain while urinating. Denies blood in urine. has hall All other negative except as mentioned in HPI Physical Examination: General Appearance: Comfortable, in no acute respiratory distress, co-operative . Vitals reviewed and noted as below Head; Atraumatic, normocephalic ENT: no ulcers no thrush. Tongue is midline. Oropharynx: no rash or ulcers. EYES: Pupils are equal, round and reactive to light accommodation. Eye muscles and extraocular movement intact. Sclera is anicteric. Neck; supple no lymphadenopathy, no thyromegaly or bruit Lungs: Normal respiratory rate/effort. Breath sounds bilateral equal and clear Heart: Normal rate. s1s2 normal. No rub or gallop. Extremities: trace edema. No varicose veins Neurological: Patient is alert, awake and oriented to person, place and time. No focal deficit. Strength bilateral appropriate and equal Skin: Warm and dry. Normal turgor. No rash. Palpitation: Normal elasticity for age Abdomen: Abdomen is soft. Bowel sounds +. There is no abdominal tenderness, no guarding/rigidity no organomegaly Psych: normal insight and normal affect/mood MSK: no joint tenderness or swelling. Digits and nails normal, no deformity : kidney or bladder not palpable. has hall. s/p left inguinal hernia repair Labs/imaging reviewed. Past medical history, past surgical history, family history, social history, allergy reviewed and noted as below Family hx: no hx of CKD. Rest non-contributory Objective - Vital Signs/Intake and Output Vital Signs (last 24 hours): Temp Pulse Resp BP Pulse Ox 98.1 F 78 20 116/68 97 10/14/18 07:00 10/14/18 07:00 10/14/18 07:00 10/14/18 07:00 10/14/18 07:00 Intake and Output: 10/14/18 10/14/18 06:59 18:59 Intake Total 100 Output Total 2211 Balance -2111 - Medications Medications: Current Medications Enoxaparin Sodium (Lovenox) 40 mg SC DAILY [facility] Last Admin: 10/14/18 09:23 Dose: 40 mg Cefepime HCl 1 gm/ Dextrose 50 mls @ 100 mls/hr IVPB Q24H [facility]; Protocol Last Admin: 10/14/18 00:16 Dose: 100 mls/hr Pantoprazole Sodium (Protonix Ec Tab) 40 mg PO DAILY [facility] Last Admin: 10/14/18 10:42 Dose: Not Given Potassium Chloride (Klor-Con 10) 10 meq PO BRK [facility] Last Admin: 10/14/18 07:56 Dose: 10 meq Senna/Docusate Sodium (Senokot S 50 Mg-8.6 Mg) 1 tab PO DAILY [facility] Stop: 10/17/18 15:31 Tamsulosin HCl (Flomax) 0.4 mg PO DAILY [facility] Last Admin: 10/14/18 09:42 Dose: 0.4 mg Temazepam (Restoril) 15 mg PO HS PRN PRN Reason: insomnia Last Admin: 10/13/18 21:36 Dose: 15 mg Tramadol HCl (Ultram) 25 mg PO TID PRN PRN Reason: Pain, moderate (4-7) Last Admin: 10/14/18 07:54 Dose: 25 mg - Labs Labs: 10/14/18 06:46 10/14/18 06:46 PT 13.1 SECONDS (9.7-12.2) H 10/13/18 06:53 INR 1.2 10/13/18 06:53 APTT 31 SECONDS (21-34) D 10/13/18 06:53
[2018-10-14] MEDS: Docusate-Senna 50 mg-8.6 mg Tab PO SCH (16:20)
--- NOTE | 2018-10-15 06:44 | CON ---
DATE: 10/14/2018 HISTORY OF PRESENT ILLNESS: The patient is an 78-year-old white male who presented to the emergency room with severe urinary retention, lower abdominal pain. He has distended bladder up to the umbilicus with bilateral hydro and creatinine elevated to 22. The patient has a Rosenthal catheter inserted, and the creatinine went down to normal. Apparently, the patient has a history of dripping, unable to urinate. Only, he would drip once in a while. He is shy to get out of the house. He has no treatment by any urologist. PHYSICAL EXAMINATION: ABDOMEN: Soft. Recent left inguinal hernia repair. Rosenthal catheter functioning well. RECTAL: The patient could not move to do a rectal exam. IMPRESSION: Urinary retention, hydronephrosis, and elevated creatinine due to obstructive uropathy. PLAN: Keep the Rosenthal until the patient improve and will start him on Flomax. I will order PSA. I will follow him and if he gets discharged, please let him follow up with me in my office. Kavita Gonzalez MD
[2018-10-15] MEDS: Potassium Chloride 10 mEq ER Tab PO SCH (08:47)
[2018-10-15] MEDS: Pantoprazole 40 mg EC Tab PO SCH (11:03)
[2018-10-15] MEDS: Enoxaparin 40 mg Syringe SC SCH (11:04)
[2018-10-15] MEDS: Docusate-Senna 50 mg-8.6 mg Tab PO SCH (11:07)
--- NOTE | 2018-10-15 11:07 | CP.PCM.PN ---
Subjective - Date & Time of Evaluation Date of Evaluation: 10/15/18 Time of Evaluation: 11:04 - Subjective Subjective: Surgery: Dr. Early Pt seen and examined. No acute overnight events. States he feels well and pain is well controlled at this time. He admits to some pain around his scrotum but states it was present pre-op as well. Tolerating full liquids and would like to eat regular food. Admits to flatus but denies BM. Denies N/V, F/C. Objective - Vital Signs/Intake and Output Vital Signs (last 24 hours): Temp Pulse Resp BP Pulse Ox 99.0 F 81 20 114/68 97 10/15/18 07:00 10/15/18 07:00 10/15/18 07:00 10/15/18 07:00 10/15/18 07:00 Intake and Output: 10/15/18 10/15/18 06:59 18:59 Output Total 2862 Balance -2862 - Medications Medications: Current Medications Enoxaparin Sodium (Lovenox) 40 mg SC DAILY [facility] Last Admin: 10/14/18 09:23 Dose: 40 mg Cefepime HCl 1 gm/ Dextrose 50 mls @ 100 mls/hr IVPB Q24H [facility]; Protocol Last Admin: 10/14/18 23:48 Dose: 100 mls/hr Pantoprazole Sodium (Protonix Ec Tab) 40 mg PO DAILY [facility] Last Admin: 10/14/18 10:42 Dose: Not Given Potassium Chloride (Klor-Con 10) 10 meq PO BRK [facility] Last Admin: 10/15/18 08:47 Dose: 10 meq Senna/Docusate Sodium (Senokot S 50 Mg-8.6 Mg) 1 tab PO DAILY [facility] Stop: 10/17/18 15:31 Last Admin: 10/14/18 16:20 Dose: 1 tab Tamsulosin HCl (Flomax) 0.4 mg PO DAILY [facility] Last Admin: 10/14/18 09:42 Dose: 0.4 mg Temazepam (Restoril) 15 mg PO HS PRN PRN Reason: insomnia Last Admin: 10/14/18 21:17 Dose: 15 mg Tramadol HCl (Ultram) 25 mg PO TID PRN PRN Reason: Pain, moderate (4-7) Last Admin: 10/14/18 07:54 Dose: 25 mg - Labs Labs: 10/14/18 06:46 10/14/18 06:46 PT 13.1 SECONDS (9.7-12.2) H 10/13/18 06:53 INR 1.2 10/13/18 06:53 APTT 31 SECONDS (21-34) D 10/13/18 06:53 - Constitutional Appears: Well, No Acute Distress - Head Exam Head Exam: ATRAUMATIC, NORMOCEPHALIC - ENT Exam ENT Exam: Mucous Membranes Moist - Cardiovascular Exam Cardiovascular Exam: RRR - GI/Abdominal Exam GI & Abdominal Exam: Soft. absent: Distended, Guarding, Rebound Additional comments: tenderness around LLQ/Left inguinal region, dressing clean/dry/intact. Ren drain with 22cc of serosang output - Neurological Exam Neurological Exam: Alert, Awake, Oriented x3 - Skin Skin Exam: Dry, Warm Assessment and Plan - Assessment and Plan (Free Text) Assessment: 78M s/p Left inguinal hernia repair; POD#3 Plan: - start regular diet - Miralax for constipation - Encourage PT - DC ren drain - d/w Dr. Nneka Sharpe
[2018-10-15] MEDS ORDERED: POLYETHYLENE GLYCOL 3350 17 GM/Dose PACKET PO ONE (11:13)
--- NOTE | 2018-10-15 16:31 | CP.PCM.PCO ---
Physician Communication Note - Physician Communication Note Physician Communication Note: needs to discharge with hall in and f/u with Dr. Gonzalez office out pt
--- NOTE | 2018-10-15 17:13 | CARD ---
APPROVED REPORT Date of service: 10/11/2018 EKG Measurement Heart [id number] <Conclusion> Normal sinus rhythm T wave abnormality, consider anterior ischemia Abnormal ECG
--- NOTE | 2018-10-15 20:58 | CP.PCM.PN ---
Subjective - Date & Time of Evaluation Date of Evaluation: 10/15/18 Time of Evaluation: 08:45 - Subjective Subjective: clinically same Objective - Vital Signs/Intake and Output Vital Signs (last 24 hours): Temp Pulse Resp BP Pulse Ox 98.2 F 91 H 20 121/80 96 10/15/18 15:20 10/15/18 15:20 10/15/18 15:20 10/15/18 15:20 10/15/18 15:20 Intake and Output: 10/15/18 10/16/18 18:59 06:59 Intake Total 480 Output Total 322 Balance 158 - Medications Medications: Current Medications Enoxaparin Sodium (Lovenox) 40 mg SC DAILY [facility] Last Admin: 10/15/18 11:04 Dose: 40 mg Cefepime HCl 1 gm/ Dextrose 50 mls @ 100 mls/hr IVPB Q24H [facility]; Protocol Last Admin: 10/14/18 23:48 Dose: 100 mls/hr Pantoprazole Sodium (Protonix Ec Tab) 40 mg PO DAILY [facility] Last Admin: 10/15/18 11:03 Dose: 40 mg Potassium Chloride (Klor-Con 10) 10 meq PO BRK [facility] Last Admin: 10/15/18 08:47 Dose: 10 meq Senna/Docusate Sodium (Senokot S 50 Mg-8.6 Mg) 1 tab PO DAILY [facility] Stop: 10/17/18 15:31 Last Admin: 10/15/18 11:07 Dose: 1 tab Tamsulosin HCl (Flomax) 0.4 mg PO DAILY [facility] Last Admin: 10/15/18 11:03 Dose: 0.4 mg Temazepam (Restoril) 15 mg PO HS PRN PRN Reason: insomnia Last Admin: 10/14/18 21:17 Dose: 15 mg Tramadol HCl (Ultram) 25 mg PO TID PRN PRN Reason: Pain, moderate (4-7) Last Admin: 10/14/18 07:54 Dose: 25 mg - Labs Labs: 10/14/18 06:46 10/14/18 06:46 PT 13.1 SECONDS (9.7-12.2) H 10/13/18 06:53 INR 1.2 10/13/18 06:53 APTT 31 SECONDS (21-34) D 10/13/18 06:53
[2018-10-16] MEDS: Potassium Chloride 10 mEq ER Tab PO SCH (08:37)
[2018-10-16] MEDS: Pantoprazole 40 mg EC Tab PO SCH (10:46)
[2018-10-16] MEDS: Docusate-Senna 50 mg-8.6 mg Tab PO SCH (10:47)
[2018-10-16] MEDS: Enoxaparin 40 mg Syringe SC SCH (10:49)
--- NOTE | 2018-10-16 12:11 | CP.PCM.PN ---
Subjective - Date & Time of Evaluation Date of Evaluation: 10/16/18 Time of Evaluation: 12:09 - Subjective Subjective: General Surgery Progress Note for Dr. Early This 78M was seen and examined this AM at bedside no acute events overnight. He is tolerating diet, passing gas but denies a bowel movement. He has no new complaints at this time. Objective - Vital Signs/Intake and Output Vital Signs (last 24 hours): Temp Pulse Resp BP Pulse Ox 98.8 F 88 20 100/57 L 97 10/16/18 07:00 10/16/18 07:00 10/16/18 07:00 10/16/18 07:00 10/16/18 07:00 Intake and Output: 10/16/18 10/16/18 06:59 18:59 Intake Total 320 Output Total 1000 Balance -680 - Medications Medications: Current Medications Enoxaparin Sodium (Lovenox) 40 mg SC DAILY [facility] Last Admin: 10/16/18 10:49 Dose: 40 mg Cefepime HCl 1 gm/ Dextrose 50 mls @ 100 mls/hr IVPB Q24H [facility]; Protocol Last Admin: 10/16/18 00:16 Dose: 100 mls/hr Pantoprazole Sodium (Protonix Ec Tab) 40 mg PO DAILY [facility] Last Admin: 10/16/18 10:46 Dose: 40 mg Potassium Chloride (Klor-Con 10) 10 meq PO BRK [facility] Last Admin: 10/16/18 08:37 Dose: 10 meq Senna/Docusate Sodium (Senokot S 50 Mg-8.6 Mg) 1 tab PO DAILY [facility] Stop: 10/17/18 15:31 Last Admin: 10/16/18 10:47 Dose: 1 tab Tamsulosin HCl (Flomax) 0.4 mg PO DAILY [facility] Last Admin: 10/16/18 10:47 Dose: 0.4 mg Temazepam (Restoril) 15 mg PO HS PRN PRN Reason: insomnia Last Admin: 10/15/18 22:22 Dose: 15 mg Tramadol HCl (Ultram) 25 mg PO TID PRN PRN Reason: Pain, moderate (4-7) Last Admin: 10/14/18 07:54 Dose: 25 mg - Labs Labs: 10/14/18 06:46 10/14/18 06:46 PT 13.1 SECONDS (9.7-12.2) H 11/13/18 06:53 INR 1.2 10/13/18 06:53 APTT 31 SECONDS (21-34) D 10/13/18 06:53 - Constitutional Appears: Non-toxic, No Acute Distress - Head Exam Head Exam: ATRAUMATIC, NORMOCEPHALIC - Eye Exam Eye Exam: EOMI, Normal appearance - ENT Exam ENT Exam: Mucous Membranes Moist - Respiratory Exam Respiratory Exam: NORMAL BREATHING PATTERN - Cardiovascular Exam Cardiovascular Exam: +S1, +S2 - GI/Abdominal Exam GI & Abdominal Exam: Soft, Tenderness. absent: Guarding, Rigid - Neurological Exam Neurological Exam: Alert, Awake - Psychiatric Exam Psychiatric exam: Normal Affect, Normal Mood - Skin Skin Exam: Dry, Intact Assessment and Plan - Assessment and Plan (Free Text) Assessment: 78M POD #2 s/p L inguinal hernia repair and doing well Regular diet Pain control clear for discharge at discretion of primary D/W Dr. Nneka Shearer PGY3
--- NOTE | 2018-10-16 14:49 | PCM.PSYCH ---
Initial Psychiatric Evaluation - Initial Psychiatric Evaluation Type of Admission: Voluntary Legal Status: Capacity Current Medications: Active Medications Generic Name Dose Route Start Last Admin Trade Name Colemanq PRN Reason Stop Dose Admin Clonazepam 0.5 mg 10/16/18 14:48 Klonopin PO DAILY PRN severe anxiety Enoxaparin Sodium 40 mg 10/14/18 10:00 10/16/18 10:49 Lovenox SC 40 mg DAILY [facility] Administration Fluoxetine HCl 10 mg 10/17/18 10:00 Prozac PO DAILY [facility] Cefepime HCl 1 gm/ Dextrose 50 mls @ 100 mls/hr 10/11/18 00:00 10/16/18 00:16 IVPB 100 mls/hr Q24H [facility] Administration Protocol Pantoprazole Sodium 40 mg 10/14/18 10:00 10/16/18 10:46 Protonix Ec Tab PO 40 mg DAILY [facility] Administration Potassium Chloride 10 meq 10/13/18 08:00 10/16/18 08:37 Klor-Con 10 PO 10 meq BRK [facility] Administration Senna/Docusate Sodium 1 tab 10/14/18 15:30 10/16/18 10:47 Senokot S 50 Mg-8.6 Mg PO 10/17/18 15:31 1 tab DAILY [facility] Administration Tamsulosin HCl 0.4 mg 10/11/18 10:45 10/16/18 10:47 Flomax PO 0.4 mg DAILY [facility] Administration Temazepam 15 mg 10/12/18 21:12 10/15/18 22:22 Restoril PO 15 mg HS PRN Administration insomnia Tramadol HCl 25 mg 10/11/18 23:13 10/14/18 07:54 Ultram PO 25 mg TID PRN Administration Pain, moderate (4-7) Past Psychiatric History - Past Psychiatric History Pertinent Medical Hx (Current Medical&Sleep Prob, Allergies): Allergies Allergy/AdvReac Type Severity Reaction Status Date / Time No Known Allergies Allergy Verified 10/10/18 17:19 FLUoxetine [Prozac] 20 mg PO TID PRN 10/16/18 Mesalamine [Apriso] 1 tab PO HS 10/16/18 clonazePAM [clonAZEPAM] 0.5 mg PO QID PRN 10/16/18
--- NOTE | 2018-10-16 15:11 | CP.PCM.PN ---
Subjective - Date & Time of Evaluation Date of Evaluation: 10/16/18 Time of Evaluation: 09:15 - Subjective Subjective: clinically same Objective - Vital Signs/Intake and Output Vital Signs (last 24 hours): Temp Pulse Resp BP Pulse Ox 98.8 F 88 20 100/57 L 97 10/16/18 07:00 10/16/18 07:00 10/16/18 07:00 10/16/18 07:00 10/16/18 07:00 Intake and Output: 10/16/18 10/16/18 06:59 18:59 Intake Total 320 Output Total 1000 Balance -680 - Medications Medications: Current Medications Clonazepam (Klonopin) 0.5 mg PO DAILY PRN PRN Reason: severe anxiety Enoxaparin Sodium (Lovenox) 40 mg SC DAILY [facility] Last Admin: 10/16/18 10:49 Dose: 40 mg Fluoxetine HCl (Prozac) 10 mg PO DAILY [facility] Cefepime HCl 1 gm/ Dextrose 50 mls @ 100 mls/hr IVPB Q24H [facility]; Protocol Last Admin: 10/16/18 00:16 Dose: 100 mls/hr Pantoprazole Sodium (Protonix Ec Tab) 40 mg PO DAILY [facility] Last Admin: 10/16/18 10:46 Dose: 40 mg Potassium Chloride (Klor-Con 10) 10 meq PO BRK [facility] Last Admin: 10/16/18 08:37 Dose: 10 meq Senna/Docusate Sodium (Senokot S 50 Mg-8.6 Mg) 1 tab PO DAILY [facility] Stop: 10/17/18 15:31 Last Admin: 10/16/18 10:47 Dose: 1 tab Tamsulosin HCl (Flomax) 0.4 mg PO DAILY [facility] Last Admin: 10/16/18 10:47 Dose: 0.4 mg Temazepam (Restoril) 15 mg PO HS PRN PRN Reason: insomnia Last Admin: 10/15/18 22:22 Dose: 15 mg Tramadol HCl (Ultram) 25 mg PO TID PRN PRN Reason: Pain, moderate (4-7) Last Admin: 10/14/18 07:54 Dose: 25 mg - Labs Labs: 10/14/18 06:46 10/14/18 06:46 PT 13.1 SECONDS (9.7-12.2) H 10/13/18 06:53 INR 1.2 10/13/18 06:53 APTT 31 SECONDS (21-34) D 10/13/18 06:53 - Constitutional Appears: Well - Head Exam Head Exam: ATRAUMATIC, NORMAL INSPECTION, NORMOCEPHALIC - Eye Exam Eye Exam: EOMI, Normal appearance, PERRL Pupil Exam: NORMAL ACCOMODATION, PERRL - ENT Exam ENT Exam: Mucous Membranes Moist, Normal Exam - Neck Exam Neck Exam: Full ROM, Normal Inspection. absent: Lymphadenopathy - Respiratory Exam Respiratory Exam: Decreased Breath Sounds - Cardiovascular Exam Cardiovascular Exam: REGULAR RHYTHM, +S1, +S2 - GI/Abdominal Exam GI & Abdominal Exam: Soft, Diminished Bowel Sounds - Rectal Exam Rectal Exam: Deferred
--- NOTE | 2018-10-16 15:15 | CP.PCM.PN ---
Subjective - Date & Time of Evaluation Date of Evaluation: 10/16/18 Time of Evaluation: 15:15 - Subjective Subjective: Nephrology Consultation Note: Assessment: Stable Acute Kidney Injury (N17.9) likely due to obs uropathy: resolved Hyperkalemia, hypokalemia, acidosis inguinal hernia s/p repair, hyperphos, depression, hyponatremia Plan No acute need for renal replacement therapy at this time. Maintain hemodynamics stable. Avoid hypotension. Patient not on ACEI/ARB due to recent WILVER. BP controlled at present started flomax daily urology and surgery eval supplemented KCL and lytes as needed Do not remove hall unless okay by urology Dose meds/antibiotics for normal GFR. Glycemic control Further work up/management as per primary team Thanks for allowing me to participate in care of your patient. Please call if any Qs. 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 renal consult for WILVER Denies OTC/herbal meds or NSAIDs No recent iodinated contrast exposure. No obvious episodes of low BP. pt feels better. c/o ankle swelling ROS: Cardiovascular: No chest pain. Pulmonary: No shortness of breath Gastrointestinal: denies abdominal pain No nausea. No vomiting. Genitourinary: No pain while urinating. Denies blood in urine. has hall All other negative except as mentioned in HPI Physical Examination: General Appearance: Comfortable, in no acute respiratory distress, co-operative . Vitals reviewed and noted as below Head; Atraumatic, normocephalic ENT: no ulcers no thrush. Tongue is midline. Oropharynx: no rash or ulcers. EYES: Pupils are equal, round and reactive to light accommodation. Eye muscles and extraocular movement intact. Sclera is anicteric. Neck; supple no lymphadenopathy, no thyromegaly or bruit Lungs: Normal respiratory rate/effort. Breath sounds bilateral equal and clear Heart: Normal rate. s1s2 normal. No rub or gallop. Extremities: trace edema. No varicose veins Neurological: Patient is alert, awake and oriented to person, place and time. No focal deficit. Strength bilateral appropriate and equal Skin: Warm and dry. Normal turgor. No rash. Palpitation: Normal elasticity for age Abdomen: Abdomen is soft. Bowel sounds +. There is no abdominal tenderness, no guarding/rigidity no organomegaly Psych: normal insight and normal affect/mood MSK: no joint tenderness or swelling. Digits and nails normal, no deformity : kidney or bladder not palpable. has hall. s/p left inguinal hernia repair Labs/imaging reviewed. Past medical history, past surgical history, family history, social history, allergy reviewed and noted as below Family hx: no hx of CKD. Rest non-contributory Objective - Vital Signs/Intake and Output Vital Signs (last 24 hours): Temp Pulse Resp BP Pulse Ox 98.8 F 88 20 100/57 L 97 10/16/18 07:00 10/16/18 07:00 10/16/18 07:00 10/16/18 07:00 10/16/18 07:00 Intake and Output: 10/16/18 10/16/18 06:59 18:59 Intake Total 320 600 Output Total 1000 200 Balance -680 400 - Medications Medications: Current Medications Clonazepam (Klonopin) 0.5 mg PO DAILY PRN PRN Reason: severe anxiety Enoxaparin Sodium (Lovenox) 40 mg SC DAILY [facility] Last Admin: 10/16/18 10:49 Dose: 40 mg Fluoxetine HCl (Prozac) 10 mg PO DAILY [facility] Cefepime HCl 1 gm/ Dextrose 50 mls @ 100 mls/hr IVPB Q24H [facility]; Protocol Last Admin: 10/16/18 00:16 Dose: 100 mls/hr Pantoprazole Sodium (Protonix Ec Tab) 40 mg PO DAILY [facility] Last Admin: 10/16/18 10:46 Dose: 40 mg Potassium Chloride (Klor-Con 10) 10 meq PO BRK [facility] Last Admin: 10/16/18 08:37 Dose: 10 meq Senna/Docusate Sodium (Senokot S 50 Mg-8.6 Mg) 1 tab PO DAILY [facility] Stop: 10/17/18 15:31 Last Admin: 10/16/18 10:47 Dose: 1 tab Tamsulosin HCl (Flomax) 0.4 mg PO DAILY [facility] Last Admin: 10/16/18 10:47 Dose: 0.4 mg Temazepam (Restoril) 15 mg PO HS PRN PRN Reason: insomnia Last Admin: 10/15/18 22:22 Dose: 15 mg Tramadol HCl (Ultram) 25 mg PO TID PRN PRN Reason: Pain, moderate (4-7) Last Admin: 10/14/18 07:54 Dose: 25 mg - Labs Labs: 10/14/18 06:46 10/14/18 06:46 PT 13.1 SECONDS (9.7-12.2) H 10/13/18 06:53 INR 1.2 10/13/18 06:53 APTT 31 SECONDS (21-34) D 10/13/18 06:53
[2018-10-16 16:13] VITALS: BP 119/65; PULSE 97; TEMP 97.9; O2SAT 98
--- NOTE | 2018-10-16 17:24 | CP.PCM.PN ---
Subjective - Date & Time of Evaluation Date of Evaluation: 10/16/18 Time of Evaluation: 11:00 - Subjective Subjective: alert, awake, denies acute pain on the surgical site, NAD. Objective - Vital Signs/Intake and Output Vital Signs (last 24 hours): Temp Pulse Resp BP Pulse Ox 97.9 F 97 H 20 119/65 98 10/16/18 15:00 10/16/18 15:00 10/16/18 15:00 10/16/18 15:00 10/16/18 15:00 Intake and Output: 10/16/18 10/16/18 06:59 18:59 Intake Total 320 600 Output Total 1000 200 Balance -680 400 - Medications Medications: Current Medications Clonazepam (Klonopin) 0.5 mg PO DAILY PRN PRN Reason: severe anxiety Enoxaparin Sodium (Lovenox) 40 mg SC DAILY [facility] Last Admin: 10/16/18 10:49 Dose: 40 mg Fluoxetine HCl (Prozac) 10 mg PO DAILY [facility] Cefepime HCl 1 gm/ Dextrose 50 mls @ 100 mls/hr IVPB Q24H [facility]; Protocol Last Admin: 10/16/18 00:16 Dose: 100 mls/hr Pantoprazole Sodium (Protonix Ec Tab) 40 mg PO DAILY [facility] Last Admin: 10/16/18 10:46 Dose: 40 mg Potassium Chloride (Klor-Con 10) 10 meq PO BRK [facility] Last Admin: 10/16/18 08:37 Dose: 10 meq Senna/Docusate Sodium (Senokot S 50 Mg-8.6 Mg) 1 tab PO DAILY [facility] Stop: 10/17/18 15:31 Last Admin: 10/16/18 10:47 Dose: 1 tab Tamsulosin HCl (Flomax) 0.4 mg PO DAILY [facility] Last Admin: 10/16/18 10:47 Dose: 0.4 mg Temazepam (Restoril) 15 mg PO HS PRN PRN Reason: insomnia Last Admin: 10/15/18 22:22 Dose: 15 mg Tramadol HCl (Ultram) 25 mg PO TID PRN PRN Reason: Pain, moderate (4-7) Last Admin: 10/14/18 07:54 Dose: 25 mg - Labs Labs: 10/14/18 06:46 10/14/18 06:46 PT 13.1 SECONDS (9.7-12.2) H 10/13/18 06:53 INR 1.2 10/13/18 06:53 APTT 31 SECONDS (21-34) D 10/13/18 06:53 Assessment and Plan - Assessment and Plan (Free Text) Assessment: 78 yr old male, s/p left inguinal hernia repair ,seen and examined. cleared by surgery, tolerating diet, alert and orientedx3, no acute pain. Discussed with DR Amena Avalos, plan [place] [facility] [place] treatment. Will continue with hall catheter and follow up with DR Gonzalez in his office.
--- NOTE | 2018-10-17 00:23 | PN ---
DATE: 10/16/2018 FOLLOWUP The patient still has the Rosenthal catheter. Kidney function is stable. 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 The patient at this stage has the Rosenthal. I gave him my card for followup. We will do the PSA and see what is the result in need when he go to rehab to follow up in my office. Kavita Gonzalez MD
== END 2018-10-17 00:20 | DRG 357 ==
LOC: C.ER 17:03 → C.6T 20:21
PROVIDERS: ADMIT Internal Medicine Nephrology; ATTEND Internal Medicine Nephrology
PROC: 0DQV0ZZ Repair Mesentery, Open Approach (ICD-10-PCS; principal; 2018-10-10)
DX: K40.30 Unilateral inguinal hernia, with obstruction, without gangrene, not specified as recurrent (principal); N17.9 Acute kidney failure, unspecified; E87.1 Hypo-osmolality and hyponatremia; E87.2 Acidosis; N13.9 Obstructive and reflux uropathy, unspecified; N50.82 Scrotal pain; E83.39 Other disorders of phosphorus metabolism; E87.5 Hyperkalemia; E87.6 Hypokalemia; J45.909 Unspecified asthma, uncomplicated; F40.00 Agoraphobia, unspecified; F32.9 Major depressive disorder, single episode, unspecified; K40.31 Unilateral inguinal hernia, with obstruction, without gangrene, recurrent; E86.0 Dehydration

== ENCOUNTER 2018-11-14 10:12 | Inpatient (IN) | payer MEDICARE, MEDICAID ==
[2018-11-14 10:15] VITALS: BMI 18.8
--- NOTE | 2018-11-14 11:05 | C.PDOC ---
History Of Present Illness 78 y/o male pt with hx of prostatitis, anxiety and agoraphobia and has a Rosenthal catheter placed presents to the ER c/o penile pain that started x1 week. Associated sx includes nausea, swelling, redness. Pt denies fever and vomiting. Time Seen by Provider: 11/14/18 10:39 Chief Complaint (Nursing): Male Genitourinary History Per: Patient History/Exam Limitations: no limitations Onset/Duration Of Symptoms: Days (x1 week) Current Symptoms Are (Timing): Still Present Past Medical History Reviewed: Historical Data, Nursing Documentation, Vital Signs Vital Signs: Last Vital Signs Temp 98.9 F 11/14/18 10:28 Pulse 89 11/14/18 10:28 Resp 20 11/14/18 10:28 BP 101/60 11/14/18 10:28 Pulse Ox 99 11/14/18 10:28 - Medical History PMH: Arthritis, Depression, Gastritis, Rheumatoid Arthritis - [facility] Procedures SUPPLEMENT L INGUINAL REGION WITH SYNTH SUB, OPEN APPROACH (10/10/18) Family History: States: No Known Family Hx - Social History Hx Alcohol Use: No Hx Substance Use: No - Immunization History Hx Tetanus Toxoid Vaccination: (unk) Hx Influenza Vaccination: Yes Hx Pneumococcal Vaccination: Yes (2018) Review Of Systems Except As Marked, All Systems Reviewed And Found Negative. Constitutional: Negative for: Fever Gastrointestinal: Positive for: Nausea. Negative for: Vomiting Genitourinary: Positive for: Penile Pain, Other (swelling and redness on penis) Physical Exam - Physical Exam Appears: Non-toxic, No Acute Distress Skin: Warm, Dry Head: Normacephalic Eye(s): bilateral: Normal Inspection, EOMI Male Genital: No Circumcised, Other (swelling head of penis ) Extremity: Normal ROM (x4) Neurological/Psych: Oriented x3, Normal Speech ED Course And Treatment - Laboratory Results Result Diagrams: 11/20/18 08:12 11/20/18 08:12 ECG: Interpreted By Me, Viewed By Me ECG Rhythm: Sinus Rhythm ECG Interpretation: Normal Interpretation Of ECG: normal axis Rate From EC O2 Sat by Pulse Oximetry: 99 (RA) Pulse Ox Interpretation: Normal Medical Decision Making Medical Decision Making: Impression: paraphimosis Plan: -- Blood bank -- Chem labs -- Blood work -- Urine cx -- UA 11:[address] Gonzalez about pt and Dr. Gonzalez agreed to plan. Scheduled to OR on Friday, Pt should be NPO after midnight on Friday. 11:26 Dr. Malina Avalos contacted to discuss pt. 11:54 Dr. Malina Avalos agrees pt admittance under him. Reassess: Pt is resting comfortably. Discussed results and plan with patient. Patient understands results and is agreeable with plan. All questions answered. Pt will be admitted under Dr. Malina Avalos. Disposition - Disposition Disposition: HOSPITALIZED Disposition Time: 12:31 Condition: GOOD - Clinical Impression Clinical Impression: Paraphimosis, UTI (urinary tract infection) - Scribe Statement The provider has reviewed the documentation as recorded by the Jd Kimble Do Provider Attestation: All medical record entries made by the Scribe were at my direction and personally dictated by me. I have reviewed the chart and agree that the record accurately reflects my personal performance of the history, physical exam, medical decision making, and the department course for this patient. I have also personally directed, reviewed, and agree with the discharge instructions and disposition.
[2018-11-14 11:27] LABS: BASO # 0.1 K/uL (0.0-0.2); EOS # 0.4 K/uL (0.0-0.7); EOS % 4.3 % (0.0-4.0); HEMOGLOBIN 12.4 g/dL (12.0-18.0); LYMPH # 0.5 K/uL (1.0-4.3); LYMPH % 5.7 % (20.0-40.0); MEAN CORPUSCULAR HEMOGLOBIN 30.3 pg (27.0-31.0); MEAN PLATELET VOLUME 8.5 fL (7.2-11.7); MONO # 0.5 K/uL (0.0-0.8); MONO % 5.3 % (0.0-10.0); NEUT # 7.2 K/uL (1.8-7.0); NEUT % 83.7 % (50.0-75.0); PLATELET COUNT 232 K/uL (130-400); RED CELL DISTRIBUTION WIDTH 14.2 % (11.5-14.5); WHITE BLOOD COUNT 8.7 K/uL (4.8-10.8)
[2018-11-14 11:39] LABS: ALBUMIN 3.1 g/dL (3.5-5.0); ALT/SGPT 21 U/L (21-72); AST/SGOT 22 U/L (17-59); BLOOD UREA NITROGEN 19 mg/dL (9-20); CALCIUM 8.3 mg/dl (8.6-10.4); GFR NON-AFRICAN AMERICAN > 60
[2018-11-14 11:49] LABS: INR 1.3; PROTHROMBIN TIME 13.8 SECONDS (9.7-12.2); URINE BACTERIA OCC (<OCC); URINE BILIRUBIN NEGATIVE (NEGATIVE); URINE BLOOD 2+ (NEGATIVE); URINE CLARITY Turbid (Clear); URINE COLOR Amber (YELLOW); URINE GLUCOSE (UA) NORMAL (Normal); URINE LEUKOCYTE ESTERASE 3+ Leu/uL (Negative); URINE PROTEIN 2+ mg/dL (NEGATIVE); WBC CLUMPS FEW /hpf
[2018-11-14 12:08] LABS: ANISOCYTOSIS SLIGHT; EOSINOPHIL 3 % (0-4); LYMPHOCYTE 5 % (20-40); MONOCYTE 5 % (0-10); NEUTROPHIL 87 % (50-75); OVALOCYTES SLIGHT; PLATELET ESTIMATE NORMAL (NORMAL); POIKILOCYTOSIS SLIGHT; TOTAL CELLS COUNTED 100
[2018-11-14 12:09] LABS: POLYCHROMIC SLIGHT; SCHISTOCYTES SLIGHT
[2018-11-14 12:10] LABS: LARGE PLATELETS PRESENT
[2018-11-14] MEDS ORDERED: cefTRIAXone 1 gm 1 GM/100 ML BAG IVPB ONE (12:36)
--- NOTE | 2018-11-14 12:54 | CP.PCM.HP ---
<Alba Varela - Last Filed: 11/14/18 15:09> History of Present Illness - History of Present Illness History of Present Illness: Hospitalist Service This is an 78 year old male with PMHx of Anxiety, Depression and Agoraphobia who presents to the ED with penile pain x 1 week. Patient reports he has has a hall placed since 10/13/18 (due to hydronephrosis). He has followed up with urologist Dr. Gonzalez about 2 weeks ago and reports all was well at that time. Last week patient started to notice swelling, irritation, and blood around the insertion site of the hall. The pain became progressively worse, eventually not allowing the patient to sleep well at night. Patient lives alone at home, ambulates with walker and is able to perform basic ADLs with assistance from friends. Denied any current fever, chills, headache, chest pain, shortness of breath, abdominal pain, suprapubic pain, n/v/d/c, dysuria, or hematuria. PMHx: As noted above PSHx: Left incarcerated hernia repair (10/13/18), L inguinal hernia repair with mesh (2004), nasal mass excision Meds: Klonopin 0.5mg PO TID PRN, Prozac 10mg PO daily, Restoril 15mg PO QHS, Flomax All: NKDA SHx: Denied any alcohol, tobacco, or illicit drug use FHx: Unremarkable Urology: Dr. Gonzalez Present on Admission - Present on Admission Any Indicators Present on Admission: No Review of Systems - Constitutional Constitutional: absent: Chills, Fever - EENT Eyes: absent: Blurred Vision, Change in Vision Ears: absent: Tinnitus, Disequilibrium Nose/Mouth/Throat: absent: Dry Mouth, Sore Throat - Cardiovascular Cardiovascular: absent: Chest Pain, Chest Pain at Rest, Dyspnea - Respiratory Respiratory: Cough. absent: Dyspnea on Exertion, Wheezing, Chest Congestion - Gastrointestinal Gastrointestinal: absent: Abdominal Pain, Constipation, Diarrhea, Nausea, Vomiting - Genitourinary Genitourinary: Dysuria - Musculoskeletal Musculoskeletal: absent: Abnormal Gait, Back Pain - Integumentary Integumentary: absent: Dry Skin, Rash - Neurological Neurological: absent: Abnormal Gait, Syncope, Weakness - Psychiatric Psychiatric: Anxiety, Depression. absent: Suicidal Ideation, Visual Hallucinations - Endocrine Endocrine: absent: Polydipsia, Polyphagia, Polyuria - Hematologic/Lymphatic Hematologic: absent: Easy Bleeding, Easy Bruising, Lymphadenopathy Past Patient History - Past Medical History & Family History Past Medical History?: Yes - Past Social History Smoking Status: Never Smoked - CARDIAC Hx Cardiac Disorders: No - NEUROLOGICAL Hx Neurological Disorder: No - HEENT Hx HEENT Problems: No - RENAL Hx Chronic Kidney Disease: No - ENDOCRINE/METABOLIC Hx Endocrine Disorders: No - HEMATOLOGICAL/ONCOLOGICAL Hx Blood Disorders: No - INTEGUMENTARY Hx Dermatological Problems: No - MUSCULOSKELETAL/RHEUMATOLOGICAL Hx Arthritis: Yes Hx Rheumatoid Arthritis: Yes - GASTROINTESTINAL Hx Gastritis: Yes - GENITOURINARY/GYNECOLOGICAL Hx Genitourinary Disorders: Yes Hx Prostate Cancer: Yes - PSYCHIATRIC Hx Depression: Yes Hx Substance Use: No - SURGICAL HISTORY Hx Surgeries: Yes Hx Herniorrhaphy: Yes (LEFT INGUINAL HERNIA REPAIR WITH MESH) - ANESTHESIA Hx Anesthesia: Yes Hx Anesthesia Reactions: No Hx Malignant Hyperthermia: No Meds Allergies/Adverse Reactions: Allergies Allergy/AdvReac Type Severity Reaction Status Date / Time No Known Allergies Allergy Verified 11/14/18 10:32 Physical Exam - Constitutional Appears: No Acute Distress, Unkempt - Head Exam Head Exam: NORMAL INSPECTION, NORMOCEPHALIC - Eye Exam Eye Exam: EOMI, PERRL - ENT Exam ENT Exam: Mucous Membranes Dry - Respiratory Exam Respiratory Exam: Decreased Breath Sounds. absent: Rales, Rhonchi, Wheezes - Cardiovascular Exam Cardiovascular Exam: +S1, +S2 - GI/Abdominal Exam GI & Abdominal Exam: Normal Bowel Sounds, Soft. absent: Distended, Tenderness Additional comments: surgical scar noted from prior surgeries - Exam Exam: Scrotal Swelling, Testicular Tenderness, Uretheral Discharge (dried blood, some discharged from urethra, both testes swollen ) - Extremities Exam Extremities exam: Positive for: normal inspection, pedal pulses present. Negative for: pedal edema, tenderness - Back Exam Back exam: absent: CVA tenderness (L), CVA tenderness (R) - Neurological Exam Neurological exam: Alert, Oriented x3 - Psychiatric Exam Psychiatric exam: Anxious, Normal Affect, Normal Mood - Skin Skin Exam: Dry, Intact, Normal Color, Warm Results - Vital Signs Recent Vital Signs: Last Vital Signs Temp 98.3 F 11/14/18 12:15 Pulse 84 11/14/18 12:15 Resp 16 11/14/18 12:15 BP 91/49 L 11/14/18 12:15 Pulse Ox 99 11/14/18 12:46 - Labs Result Diagrams: 11/14/18 11:21 11/14/18 11:21 Labs: Laboratory Results - last 24 hr 11/14/18 11/14/18 11/14/18 11:21 11:21 11:21 WBC 8.7 RBC 4.10 L Hgb 12.4 Hct 36.5 MCV 89.0 MCH 30.3 MCHC 34.0 RDW 14.2 Plt Count 232 MPV 8.5 Neut % (Auto) 83.7 H Lymph % (Auto) 5.7 L [place] % (Auto) 5.3 Eos % (Auto) 4.3 H Baso % (Auto) 1.0 Neut # (Auto) 7.2 H Lymph # (Auto) 0.5 L [place] # (Auto) 0.5 Eos # (Auto) 0.4 Baso # (Auto) 0.1 Neutrophils % (Manual) 87 H Lymphocytes % (Manual) 5 L Monocytes % (Manual) 5 Eosinophils % (Manual) 3 Platelet Estimate Normal Large Platelets Present Polychromasia Slight Poikilocytosis (manual Slight Anisocytosis (manual) Slight Ovalocytes Slight Schistocytes Slight PT INR APTT Sodium 132 Potassium 3.7 Chloride 94 L Carbon Dioxide 29 Anion Gap 13 BUN 19 Creatinine 0.8 Est GFR ( Amer) > 60 Est GFR (Non-Af Amer) > 60 Random Glucose 115 H Calcium 8.3 L Total Bilirubin 0.7 AST 22 ALT 21 Alkaline Phosphatase 90 Total Protein 6.1 L Albumin 3.1 L Globulin 3.0 Albumin/Globulin Ratio 1.0 Urine Color Urine Clarity Urine pH Ur Specific [place] Urine Protein Urine Glucose (UA) Urine Ketones Urine Blood Urine Nitrate Urine Bilirubin Urine Urobilinogen Ur Leukocyte Esterase Urine WBC (Auto) Urine RBC (Auto) Urine WBC Clumps (Auto) Urine Bacteria Blood Type B POSITIVE Antibody Screen Negative 11/14/18 11/14/18 11:29 11:29 WBC RBC Hgb Hct MCV MCH MCHC RDW Plt Count MPV Neut % (Auto) Lymph % (Auto) [place] % (Auto) Eos % (Auto) Baso % (Auto) Neut # (Auto) Lymph # (Auto) [place] # (Auto) Eos # (Auto) Baso # (Auto) Neutrophils % (Manual) Lymphocytes % (Manual) Monocytes % (Manual) Eosinophils % (Manual) Platelet Estimate Large Platelets Polychromasia Poikilocytosis (manual Anisocytosis (manual) Ovalocytes Schistocytes PT 13.8 H INR 1.3 APTT 28 Sodium Potassium Chloride Carbon Dioxide Anion Gap BUN Creatinine Est GFR ( Amer) Est GFR (Non-Af Amer) Random Glucose Calcium Total Bilirubin AST ALT Alkaline Phosphatase Total Protein Albumin Globulin Albumin/Globulin Ratio Urine Color Karie Urine Clarity Turbid Urine pH 6.0 Ur Specific [place] 1.019 Urine Protein 2+ H Urine Glucose (UA) Normal Urine Ketones Negative Urine Blood 2+ H Urine Nitrate Positive H Urine Bilirubin Negative Urine Urobilinogen 2.0 Ur Leukocyte Esterase 3+ H Urine WBC (Auto) 1284 H Urine RBC (Auto) 92 H Urine WBC Clumps (Auto) Few H Urine Bacteria Occ H Blood Type Antibody Screen Assessment & Plan - Assessment and Plan (Free Text) Plan: Paraphimosis - Urology consulted - Dr. Gonzalze - Plan for OR Friday11/16/18 - All preop clearance ordered - Hall in place since 10/2018 (prior admission) UTI Likely 2/2 to indwelling hall Previous admission [facility] 2/2 hydronephrosis - Hall placed 10/10/18 - Noted on UA Management: - Rocephin 1 gram IVP daily - Urine culture sent Nonproductive Cough - Duonebs Q6H - CXR: no consolidation noted Anxiety, Depression and Agoraphobia - Patient was evaluated by Psych on previous admission (10/2018) - Recommended Prozac 10mg PO daily - Resumed patient's home regimen Restoril, Klonopin Prophylactic Measures - GI PPX: Protonix, probiotics added - DVT PPX: SCDs, Hep Q12 - will be held Friday night, in light of urological procedure Friday morning Case discussed with Alba Ramirez DO, PGY2 <Chase Paniagua - Last Filed: 11/14/18 16:54> Results - Vital Signs Recent Vital Signs: Last Vital Signs Temp 98.7 F 11/14/18 15:00 Pulse 80 11/14/18 15:00 Resp 20 11/14/18 15:00 BP 102/59 L 11/14/18 15:00 Pulse Ox 96 11/14/18 15:00 - Labs Result Diagrams: 11/14/18 11:21 11/14/18 11:21 Labs: Laboratory Results - last 24 hr 11/14/18 11/14/18 11/14/18 11:21 11:21 11:21 WBC 8.7 RBC 4.10 L Hgb 12.4 Hct 36.5 MCV 89.0 MCH 30.3 MCHC 34.0 RDW 14.2 Plt Count 232 MPV 8.5 Neut % (Auto) 83.7 H Lymph % (Auto) 5.7 L [place] % (Auto) 5.3 Eos % (Auto) 4.3 H Baso % (Auto) 1.0 Neut # (Auto) 7.2 H Lymph # (Auto) 0.5 L [place] # (Auto) 0.5 Eos # (Auto) 0.4 Baso # (Auto) 0.1 Neutrophils % (Manual) 87 H Lymphocytes % (Manual) 5 L Monocytes % (Manual) 5 Eosinophils % (Manual) 3 Platelet Estimate Normal Large Platelets Present Polychromasia Slight Poikilocytosis (manual Slight Anisocytosis (manual) Slight Ovalocytes Slight Schistocytes Slight PT INR APTT Sodium 132 Potassium 3.7 Chloride 94 L Carbon Dioxide 29 Anion Gap 13 BUN 19 Creatinine 0.8 Est GFR ( Amer) > 60 Est GFR (Non-Af Amer) > 60 Random Glucose 115 H Calcium 8.3 L Total Bilirubin 0.7 AST 22 ALT 21 Alkaline Phosphatase 90 Total Protein 6.1 L Albumin 3.1 L Globulin 3.0 Albumin/Globulin Ratio 1.0 Urine Color Urine Clarity Urine pH Ur Specific [place] Urine Protein Urine Glucose (UA) Urine Ketones Urine Blood Urine Nitrate Urine Bilirubin Urine Urobilinogen Ur Leukocyte Esterase Urine WBC (Auto) Urine RBC (Auto) Urine WBC Clumps (Auto) Urine Bacteria Blood Type B POSITIVE Antibody Screen Negative 11/14/18 11/14/18 11:29 11:29 WBC RBC Hgb Hct MCV MCH MCHC RDW Plt Count MPV Neut % (Auto) Lymph % (Auto) [place] % (Auto) Eos % (Auto) Baso % (Auto) Neut # (Auto) Lymph # (Auto) [place] # (Auto) Eos # (Auto) Baso # (Auto) Neutrophils % (Manual) Lymphocytes % (Manual) Monocytes % (Manual) Eosinophils % (Manual) Platelet Estimate Large Platelets Polychromasia Poikilocytosis (manual Anisocytosis (manual) Ovalocytes Schistocytes PT 13.8 H INR 1.3 APTT 28 Sodium Potassium Chloride Carbon Dioxide Anion Gap BUN Creatinine Est GFR ( Amer) Est GFR (Non-Af Amer) Random Glucose Calcium Total Bilirubin AST ALT Alkaline Phosphatase Total Protein Albumin Globulin Albumin/Globulin Ratio Urine Color Karie Urine Clarity Turbid Urine pH 6.0 Ur Specific [place] 1.019 Urine Protein 2+ H Urine Glucose (UA) Normal Urine Ketones Negative Urine Blood 2+ H Urine Nitrate Positive H Urine Bilirubin Negative Urine Urobilinogen 2.0 Ur Leukocyte Esterase 3+ H Urine WBC (Auto) 1284 H Urine RBC (Auto) 92 H Urine WBC Clumps (Auto) Few H Urine Bacteria Occ H Blood Type Antibody Screen Attending/Attestation - Attestation I have personally seen and examined this patient.: Yes I have fully participated in the care of the patient.: Yes I have reviewed all pertinent clinical information: Yes Notes (Text): 11/14/18 16:43 Medical attending: Patient was seen and examined by me with the medical safety director on 3T. Patient is pending further intervention of his phimosis this Friday. On inspection he does appear to have dry dark material around his urethra and the hall. He has had the hall for some time now secondary to hydronephrosis. At this time his creatine is ok, however we should get a nephrology evaluation while he is here Patient is on Rocpehin IV at this time We are also continueing with his home medication. The patient when we saw him explained that at rest he did not have any pain however movement can cause pain Patient has a a history of anxiety and deppression and agoraphobia however when we came and spoke with him he seemed a very reasonable and pleasant affect - nevertheless we will continue his pyschiatry medications. Chase Paniagua 11/14/18 16:52
[2018-11-14] MEDS ORDERED: Sodium Chloride 0.9% 1,000 ML IV SCH (13:00)
[2018-11-14] MEDS ORDERED: Albuterol-Ipratrop 3 mg / 0.5 (3 ml) UD INH PRN (14:04)
--- NOTE | 2018-11-14 15:20 | RAD ---
Date of service: 11/14/2018 PROCEDURE: CHEST RADIOGRAPH, 1 VIEW HISTORY: pre op COMPARISON: Comparison is made with 10/10/2018 FINDINGS: LUNGS: Clear. PLEURA: No pneumothorax or pleural fluid seen. CARDIOVASCULAR: No aortic atherosclerotic calcification present. Normal. OSSEOUS STRUCTURES: No significant abnormalities. VISUALIZED UPPER ABDOMEN: Normal. OTHER FINDINGS: None. IMPRESSION: No active disease.
[2018-11-14] MEDS: Lactobacillus Acidophilus 500 MU Cap PO SCH (18:11)
[2018-11-14] MEDS: Albuterol-Ipratrop 3 mg / 0.5 (3 ml) UD INH SCH (19:35)
[2018-11-15] MEDS: Albuterol-Ipratrop 3 mg / 0.5 (3 ml) UD INH SCH ×3 (01:33→13:20)
[2018-11-15 08:17] LABS: BASO % 0.6 % (0.0-2.0); EOS # 0.5 K/uL (0.0-0.7); EOS % 7.5 % (0.0-4.0); HEMOGLOBIN 11.1 g/dL (12.0-18.0); LYMPH # 0.8 K/uL (1.0-4.3); LYMPH % 11.9 % (20.0-40.0); MEAN CELL VOLUME 89.3 fL (80.0-94.0); MEAN CORPUSCULAR HEMOGLOBIN 30.5 pg (27.0-31.0); MEAN CORPUSCULAR HGB CONC 34.1 g/dL (33.0-37.0); MEAN PLATELET VOLUME 8.7 fL (7.2-11.7); MONO # 0.6 K/uL (0.0-0.8); MONO % 8.3 % (0.0-10.0); NEUT % 71.7 % (50.0-75.0); RBC 3.63 Mil/uL (4.40-5.90); RED CELL DISTRIBUTION WIDTH 14.3 % (11.5-14.5)
[2018-11-15 08:20] LABS: ALT/SGPT 21 U/L (21-72); AST/SGOT 20 U/L (17-59); BLOOD UREA NITROGEN 18 mg/dL (9-20); CALCIUM 8.5 mg/dl (8.6-10.4); GFR NON-AFRICAN AMERICAN > 60
[2018-11-15] MEDS: Lactobacillus Acidophilus 500 MU Cap PO SCH ×2 (09:46→17:25)
[2018-11-15] MEDS: Pantoprazole 40 mg EC Tab PO SCH (09:46)
[2018-11-15] MEDS: cefTRIAXone IV 1 gm in Dextros 50 ML IVPB SCH (09:47)
[2018-11-15] MEDS ORDERED: Potassium Chloride 20 mEq ER Tab PO ONE (10:00)
--- NOTE | 2018-11-15 11:05 | CP.PCM.PN ---
<Alba Varela - Last Filed: 11/15/18 11:03> Subjective - Date & Time of Evaluation Date of Evaluation: 11/15/18 Time of Evaluation: 11:03 - Subjective Subjective: Medicine Note for Hospitalist Service - Dr. Paniagua Patient was seen and examined at bedside. Patient admits he continues to have penile pain, but the pain is not so severe that he requires medication. Denied fever, chills, headache, chest pain, shortness of breath, abdominal pain, n/v/d/c. Objective - Vital Signs/Intake and Output Vital Signs (last 24 hours): Temp Pulse Resp BP Pulse Ox 97.5 F L 84 20 98/62 L 98 11/15/18 08:00 11/15/18 08:00 11/15/18 08:00 11/15/18 08:00 11/15/18 08:00 Intake and Output: 11/15/18 11/15/18 06:59 18:59 Intake Total 200 Output Total 450 Balance -250 - Medications Medications: Current Medications Acetaminophen (Tylenol 325mg Tab) 650 mg PO Q6 PRN PRN Reason: Pain, Mild (1-3) Albuterol/Ipratropium (Duoneb 3 Mg/0.5 Mg (3 Ml) Ud) 3 ml INH RQ6 [facility] Last Admin: 11/15/18 07:50 Dose: 3 ml Clonazepam (Klonopin) 0.5 mg PO TID PRN PRN Reason: Anxiety Last Admin: 11/15/18 10:06 Dose: 0.5 mg Fluoxetine HCl (Prozac) 10 mg PO DAILY [facility] Last Admin: 11/15/18 09:46 Dose: 10 mg Heparin Sodium (Porcine) (Heparin) 5,000 units SC Q12 [facility] Last Admin: 11/15/18 09:47 Dose: 5,000 units Ceftriaxone Sodium (Rocephin Iv 1 Gm Duplex) 50 mls @ 100 mls/hr IVPB DAILY [facility]; Protocol Last Admin: 11/15/18 09:47 Dose: 100 mls/hr Lactobacillus Acidophilus (Bacid Acidophilus) 1 cap PO BID [facility] Last Admin: 11/15/18 09:46 Dose: 1 cap Pantoprazole Sodium (Protonix Ec Tab) 40 mg PO DAILY [facility] Last Admin: 11/15/18 09:46 Dose: 40 mg Pneumococcal Polyvalent Vaccine (Pneumovax 23 Vaccine) 0.5 ml IM .ONCE ONE Stop: 11/16/18 10:01 Tamsulosin HCl (Flomax) 0.4 mg PO DAILY [facility]EN[facility] Last Admin: 11/15/18 09:46 Dose: 0.4 mg Temazepam (Restoril) 15 mg PO HS PRN PRN Reason: Insomnia Last Admin: 11/14/18 22:14 Dose: 15 mg - Labs Labs: 11/15/18 07:49 11/15/18 07:49 PT 13.8 SECONDS (9.7-12.2) H 11/14/18 11:29 INR 1.3 11/14/18 11:29 APTT 28 SECONDS (21-34) 11/14/18 11:29 - Additional Findings Additional findings: - Constitutional Appears: No Acute Distress, Unkempt - Head Exam Head Exam: NORMAL INSPECTION, NORMOCEPHALIC - Eye Exam Eye Exam: EOMI, PERRL - ENT Exam ENT Exam: Mucous Membranes Dry - Respiratory Exam Respiratory Exam: Decreased Breath Sounds. absent: Rales, Rhonchi, Wheezes - Cardiovascular Exam Cardiovascular Exam: +S1, +S2 - GI/Abdominal Exam GI & Abdominal Exam: Normal Bowel Sounds, Soft. absent: Distended, Tenderness Additional comments: surgical scar noted from prior surgeries - Exam Exam: Scrotal Swelling, Testicular Tenderness, Uretheral Discharge (dried blood, some discharged from urethra, both testes swollen ) - Extremities Exam Extremities exam: Positive for: normal inspection, pedal pulses present. Negative for: pedal edema, tenderness - Back Exam Back exam: absent: CVA tenderness (L), CVA tenderness (R) - Neurological Exam Neurological exam: Alert, Oriented x3 - Psychiatric Exam Psychiatric exam: Anxious, Normal Affect, Normal Mood - Skin Skin Exam: Dry, Intact, Normal Color, Warm Assessment and Plan - Assessment and Plan (Free Text) Plan: Paraphimosis - Urology consulted - Dr. Gonzalez - Plan for OR Friday11/16/18 - Hall in place since 10/2018 (prior admission) - All preop clearance ordered * CXR: no infiltrates noted * EKG: NSR, no st changes noted * Coags: INR 1.3 * Labs: WNL UTI Likely 2/2 to indwelling hall Previous admission [facility] 2/2 hydronephrosis - Hall placed 10/10/18 - Noted on UA Management: - Rocephin 1 gram IVP daily - Urine culture sent Nonproductive Cough - Duonebs Q6H - CXR: no consolidation noted Anxiety, Depression and Agoraphobia - Patient was evaluated by Psych on previous admission (10/2018) - Recommended Prozac 10mg PO daily - Resumed patient's home regimen Restoril, Klonopin Prophylactic Measures - GI PPX: Protonix, probiotics added - DVT PPX: SCDs, Hep Q12 - will be held Friday night, in light of urological procedure Friday morning Case discussed with Dr. Paniagua, Alba Varela DO, PGY2 <Chase Paniagua - Last Filed: 11/15/18 14:58> Objective - Vital Signs/Intake and Output Vital Signs (last 24 hours): Temp Pulse Resp BP Pulse Ox 97.5 F L 84 20 98/62 L 98 11/15/18 08:00 11/15/18 08:00 11/15/18 08:00 11/15/18 08:00 11/15/18 08:00 Intake and Output: 11/15/18 11/15/18 06:59 18:59 Intake Total 200 Output Total 450 Balance -250 - Medications Medications: Current Medications Acetaminophen (Tylenol 325mg Tab) 650 mg PO Q6 PRN PRN Reason: Pain, Mild (1-3) Albuterol/Ipratropium (Duoneb 3 Mg/0.5 Mg (3 Ml) Ud) 3 ml INH RQ6 [facility] Last Admin: 11/15/18 13:20 Dose: 3 ml Clonazepam (Klonopin) 0.5 mg PO TID PRN PRN Reason: Anxiety Last Admin: 11/15/18 10:06 Dose: 0.5 mg Fluoxetine HCl (Prozac) 10 mg PO DAILY [facility] Last Admin: 11/15/18 09:46 Dose: 10 mg Heparin Sodium (Porcine) (Heparin) 5,000 units SC Q12 [facility]ENDA Last Admin: 11/15/18 09:47 Dose: 5,000 units Ceftriaxone Sodium (Rocephin Iv 1 Gm Duplex) 50 mls @ 100 mls/hr IVPB DAILY [facility]; Protocol Last Admin: 11/15/18 09:47 Dose: 100 mls/hr Lactobacillus Acidophilus (Bacid Acidophilus) 1 cap PO BID [facility] Last Admin: 11/15/18 09:46 Dose: 1 cap Pantoprazole Sodium (Protonix Ec Tab) 40 mg PO DAILY [facility] Last Admin: 11/15/18 09:46 Dose: 40 mg Pneumococcal Polyvalent Vaccine (Pneumovax 23 Vaccine) 0.5 ml IM .ONCE ONE Stop: 11/16/18 10:01 Tamsulosin HCl (Flomax) 0.4 mg PO DAILY [facility] Last Admin: 11/15/18 09:46 Dose: 0.4 mg Temazepam (Restoril) 15 mg PO HS PRN PRN Reason: Insomnia Last Admin: 11/14/18 22:14 Dose: 15 mg - Labs Labs: 11/15/18 07:49 11/15/18 07:49 PT 13.8 SECONDS (9.7-12.2) H 11/14/18 11:29 INR 1.3 11/14/18 11:29 APTT 28 SECONDS (21-34) 11/14/18 11:29 Attending/Attestation - Attestation I have personally seen and examined this patient.: Yes I have fully participated in the care of the patient.: Yes I have reviewed all pertinent clinical information, including history, physical exam and plan: Yes Notes (Text): 11/15/18 14:57 Medical attending: Patient was seen and examined by me. Reviewed the above note by the resident The patient was not in any acute distress. He reported he felt thirsty and asked for water. Denied fevers, denied chills. He reports + pain head of penis where hall catheter is Will need to keep area clean. NPO after midnight for OR tommorow. Chase Paniagua
--- NOTE | 2018-11-15 19:26 | CP.PCM.CON ---
History of Present Illness - History of Present Illness History of Present Illness: renal consult note 78 year old male with PMHx of Anxiety, hx of jia sec to hydronephrosis is admitted with penile pain for 1 week. The hall was placed on 10/13/18 (due to hydronephrosis). He has followed up with urologist about 2 weeks ago and reports all was well at that time. Last week patient started to notice swelling, irrita tion, and blood around the insertion site of the hall. The pain became progressively worse PMHx: As above PSHx: Left incarcerated hernia repair (10/13/18), L inguinal hernia repair with mesh (2004), nasal mass excision Meds: Klonopin 0.5mg PO TID PRN, Prozac 10mg PO daily, Restoril 15mg PO QHS, Fl omax All: NKDA SHx: Denied any alcohol, tobacco, or illicit drug use FHx: Unremarkable labs reviewed A&P: penile pain/obstructive uropathy/hydronephrosis/hx of jia cr is normal, hall is draining is well monitor U[facility] [place] urology on board volume stable will continue to monitor Past Patient History - Past Medical History & Family History Past Medical History?: Yes - Past Social History Smoking Status: Never Smoked - CARDIAC Hx Cardiac Disorders: No - NEUROLOGICAL Hx Neurological Disorder: No - HEENT Hx HEENT Problems: No - RENAL Hx Chronic Kidney Disease: No - ENDOCRINE/METABOLIC Hx Endocrine Disorders: No - HEMATOLOGICAL/ONCOLOGICAL Hx Blood Disorders: No - INTEGUMENTARY Hx Dermatological Problems: No - MUSCULOSKELETAL/RHEUMATOLOGICAL Hx Arthritis: Yes Hx Rheumatoid Arthritis: Yes - GASTROINTESTINAL Hx Gastritis: Yes - GENITOURINARY/GYNECOLOGICAL Hx Genitourinary Disorders: Yes Hx Prostate Cancer: Yes - PSYCHIATRIC Hx Depression: Yes Hx Substance Use: No - SURGICAL HISTORY Hx Surgeries: Yes Hx Herniorrhaphy: Yes (LEFT INGUINAL HERNIA REPAIR WITH MESH) - ANESTHESIA Hx Anesthesia: Yes Hx Anesthesia Reactions: No Hx Malignant Hyperthermia: No Meds Allergies/Adverse Reactions: Allergies Allergy/AdvReac Type Severity Reaction Status Date / Time No Known Allergies Allergy Verified 11/14/18 10:32 - Medications Medications: Current Medications Acetaminophen (Tylenol 325mg Tab) 650 mg PO Q6 PRN PRN Reason: Pain, Mild (1-3) Albuterol/Ipratropium (Duoneb 3 Mg/0.5 Mg (3 Ml) Ud) 3 ml INH RQ6 [facility] Last Admin: 11/15/18 13:20 Dose: 3 ml Clonazepam (Klonopin) 0.5 mg PO TID PRN PRN Reason: Anxiety Last Admin: 11/15/18 10:06 Dose: 0.5 mg Fluoxetine HCl (Prozac) 10 mg PO DAILY [facility] Last Admin: 11/15/18 09:46 Dose: 10 mg Heparin Sodium (Porcine) (Heparin) 5,000 units SC Q12 [facility] Last Admin: 11/15/18 09:47 Dose: 5,000 units Ceftriaxone Sodium (Rocephin Iv 1 Gm Duplex) 50 mls @ 100 mls/hr IVPB DAILY [facility]; Protocol Last Admin: 11/15/18 09:47 Dose: 100 mls/hr Lactobacillus Acidophilus (Bacid Acidophilus) 1 cap PO BID [facility] Last Admin: 11/15/18 17:25 Dose: 1 cap Pantoprazole Sodium (Protonix Ec Tab) 40 mg PO DAILY [facility] Last Admin: 11/15/18 09:46 Dose: 40 mg Pneumococcal Polyvalent Vaccine (Pneumovax 23 Vaccine) 0.5 ml IM .ONCE ONE Stop: 11/16/18 10:01 Tamsulosin HCl (Flomax) 0.4 mg PO DAILY [facility] Last Admin: 11/15/18 09:46 Dose: 0.4 mg Temazepam (Restoril) 15 mg PO HS PRN PRN Reason: Insomnia Last Admin: 11/14/18 22:14 Dose: 15 mg Results - Vital Signs Recent Vital Signs: Last Vital Signs Temp 98.3 F 11/15/18 15:55 Pulse 86 11/15/18 15:55 Resp 20 11/15/18 15:55 BP 95/56 L 11/15/18 15:55 Pulse Ox 95 11/15/18 15:55 - Labs Result Diagrams: 11/15/18 07:49 11/15/18 07:49 Labs: Laboratory Results - last 24 hr 11/15/18 11/15/18 07:49 07:49 WBC 7.0 RBC 3.63 L Hgb 11.1 L Hct 32.5 L MCV 89.3 MCH 30.5 MCHC 34.1 RDW 14.3 Plt Count 249 MPV 8.7 Neut % (Auto) 71.7 Lymph % (Auto) 11.9 L [place] % (Auto) 8.3 Eos % (Auto) 7.5 H Baso % (Auto) 0.6 Neut # (Auto) 5.0 Lymph # (Auto) 0.8 L [place] # (Auto) 0.6 Eos # (Auto) 0.5 Baso # (Auto) 0.0 Sodium 136 Potassium 3.5 L Chloride 99 Carbon Dioxide 28 Anion Gap 13 BUN 18 Creatinine 0.7 L Est GFR ( Amer) > 60 Est GFR (Non-Af Amer) > 60 Random Glucose 94 Calcium 8.5 L Phosphorus 5.8 H Magnesium 1.9 Total Bilirubin 0.4 AST 20 ALT 21 Alkaline Phosphatase 92 Total Protein 6.0 L Albumin 3.0 L Globulin 3.0 Albumin/Globulin Ratio 1.0
[2018-11-16] MEDS: Albuterol-Ipratrop 3 mg / 0.5 (3 ml) UD INH SCH ×4 (01:40→19:52)
[2018-11-16 06:29] LABS: BASO % 0.6 % (0.0-2.0); EOS # 0.6 K/uL (0.0-0.7); EOS % 8.1 % (0.0-4.0); HEMOGLOBIN 11.4 g/dL (12.0-18.0); LYMPH % 12.6 % (20.0-40.0); MEAN CELL VOLUME 89.2 fL (80.0-94.0); MEAN CORPUSCULAR HGB CONC 32.6 g/dL (33.0-37.0); MONO # 0.6 K/uL (0.0-0.8); MONO % 8.2 % (0.0-10.0); NEUT # 5.4 K/uL (1.8-7.0); NEUT % 70.5 % (50.0-75.0); RBC 3.93 Mil/uL (4.40-5.90); RED CELL DISTRIBUTION WIDTH 14.5 % (11.5-14.5); WHITE BLOOD COUNT 7.7 K/uL (4.8-10.8)
[2018-11-16 06:43] LABS: ALBUMIN 2.9 g/dL (3.5-5.0); ALT/SGPT 27 U/L (21-72); AST/SGOT 20 U/L (17-59); BLOOD UREA NITROGEN 18 mg/dL (9-20); CALCIUM 8.4 mg/dl (8.6-10.4); GFR NON-AFRICAN AMERICAN > 60
--- NOTE | 2018-11-16 08:31 | CP.PCM.PN ---
<Ha Bailey - Last Filed: 11/16/18 18:11> Subjective - Date & Time of Evaluation Date of Evaluation: 11/16/18 Time of Evaluation: 08:31 - Subjective Subjective: PGY-1 Medicine Progress Note for Dr. Fitzpatrick Patient seen and examined at bedside this AM, in no acute distress. No acute overnight events reported. Patient aware of plans for OR this morning, appears somewhat anxious but otherwise in good spirits. Continues to endorse penile pain, otherwise no acute somatic complaints. Denied fever, chills, headache, chest pain, shortness of breath, abdominal pain, n/v/d/c. Objective - Vital Signs/Intake and Output Vital Signs (last 24 hours): Temp Pulse Resp BP Pulse Ox 98.1 F 93 H 20 106/61 95 11/15/18 23:56 11/15/18 23:56 11/15/18 23:56 11/15/18 23:56 11/15/18 23:56 Intake and Output: 11/16/18 11/16/18 06:59 18:59 Intake Total 0 Output Total 600 800 Balance -600 -800 - Medications Medications: Current Medications Acetaminophen (Tylenol 325mg Tab) 650 mg PO Q6 PRN PRN Reason: Pain, Mild (1-3) Albuterol/Ipratropium (Duoneb 3 Mg/0.5 Mg (3 Ml) Ud) 3 ml INH RQ6 [facility] Last Admin: 11/16/18 01:40 Dose: Not Given Clonazepam (Klonopin) 0.5 mg PO TID PRN PRN Reason: Anxiety Last Admin: 11/15/18 22:01 Dose: 0.5 mg Fluoxetine HCl (Prozac) 10 mg PO DAILY [facility] Last Admin: 11/15/18 09:46 Dose: 10 mg Heparin Sodium (Porcine) (Heparin) 5,000 units SC Q12 [facility] Last Admin: 11/15/18 09:47 Dose: 5,000 units Ceftriaxone Sodium (Rocephin Iv 1 Gm Duplex) 50 mls @ 100 mls/hr IVPB DAILY [facility]; Protocol Last Admin: 11/15/18 09:47 Dose: 100 mls/hr Lactobacillus Acidophilus (Bacid Acidophilus) 1 cap PO BID [facility] Last Admin: 11/15/18 17:25 Dose: 1 cap Pantoprazole Sodium (Protonix Ec Tab) 40 mg PO DAILY [facility] Last Admin: 11/15/18 09:46 Dose: 40 mg Pneumococcal Polyvalent Vaccine (Pneumovax 23 Vaccine) 0.5 ml IM .ONCE ONE Stop: 11/16/18 10:01 Tamsulosin HCl (Flomax) 0.4 mg PO DAILY [facility] Last Admin: 11/15/18 09:46 Dose: 0.4 mg Temazepam (Restoril) 15 mg PO HS PRN PRN Reason: Insomnia Last Admin: 11/15/18 22:01 Dose: 15 mg - Labs Labs: 11/16/18 06:25 11/16/18 06:25 PT 13.8 SECONDS (9.7-12.2) H 11/14/18 11:29 INR 1.3 11/14/18 11:29 APTT 28 SECONDS (21-34) 11/14/18 11:29 - Constitutional Appears: Non-toxic, No Acute Distress - Head Exam Head Exam: ATRAUMATIC, NORMAL INSPECTION, NORMOCEPHALIC - Eye Exam Eye Exam: EOMI, Normal appearance, PERRL - ENT Exam ENT Exam: Mucous Membranes Moist, Normal Exam - Neck Exam Neck Exam: Full ROM, Normal Inspection - Respiratory Exam Respiratory Exam: Clear to Ausculation Bilateral, NORMAL BREATHING PATTERN. absent: Accessory Muscle Use, Rales, Rhonchi, Wheezes, Respiratory Distress, Stridor - Cardiovascular Exam Cardiovascular Exam: REGULAR RHYTHM, +S1, +S2 - GI/Abdominal Exam GI & Abdominal Exam: Soft, Normal Bowel Sounds. absent: Distended, Firm, Guarding, Rigid, Tenderness Additional comments: surgical scar noted from prior surgeries - Exam Exam: Scrotal Swelling, Testicular Tenderness, Uretheral Discharge (dried blood, some discharged from urethra, both testes swollen) - Extremities Exam Extremities Exam: Normal Capillary Refill, Normal Inspection. absent: Calf Tenderness, Pedal Edema - Neurological Exam Neurological Exam: Alert, Awake, Oriented x3 - Psychiatric Exam Psychiatric exam: Anxious, Normal Affect, Normal Mood - Skin Skin Exam: Dry, Intact, Normal Color, Warm Assessment and Plan - Assessment and Plan (Free Text) Assessment: 78 year old M with PMHx of anxiety, depression, agoraphobia, WILVER 2/2 hydronephrosis with hall inserted 10/13 presenting with penile pain x 1 week. OR scheduled 11/16 for reduction of paraphimosis, preop completed. Plan: Paraphimosis - Urology recs (Dr. Gonzalez) appreciated - Plan for OR Friday11/16/18 - Hall in place since 10/2018 (prior admission) - All preop clearance ordered * CXR: no infiltrates noted * EKG: NSR, no st changes noted * Coags: INR 1.3 * Labs: WNL UTI -Likely 2/2 to indwelling hall -Previous admission WILVER 2/2 hydronephrosis - Hall placed 10/10/18 - Noted on UA - f/u Urine Culture - Rocephin 1 gram IVP daily Nonproductive Cough - Duonebs Q6H - CXR: no consolidation noted Anxiety, Depression and Agoraphobia - Patient was evaluated by Psych on previous admission (10/2018) - Recommended Prozac 10mg PO daily - Resumed patient's home regimen Restoril, Klonopin PPx, Diet, Disposition: -DVT ppx:SCDs, heparin held for OR Friday -GI ppx: protonix, probiotics added -Diet: NPO for OR this AM (11/16) Case discussed with Dr. Amari Bailey DO, PGY-1 <Lauren Fitzpatrick - Last Filed: 11/16/18 19:27> Objective - Vital Signs/Intake and Output Vital Signs (last 24 hours): Temp Pulse Resp BP Pulse Ox 97.6 F 94 H 20 104/61 95 11/16/18 15:00 11/16/18 15:00 11/16/18 15:00 11/16/18 15:00 11/16/18 15:00 Intake and Output: 11/16/18 11/17/18 18:59 06:59 Intake Total 800 Output Total 1330 Balance -530 - Medications Medications: Current Medications Acetaminophen (Tylenol 325mg Tab) 650 mg PO Q6 PRN PRN Reason: Pain, Mild (1-3) Albuterol/Ipratropium (Duoneb 3 Mg/0.5 Mg (3 Ml) Ud) 3 ml INH RQ6 [facility] Last Admin: 11/16/18 13:36 Dose: Not Given Clonazepam (Klonopin) 0.5 mg PO TID PRN PRN Reason: Anxiety Last Admin: 11/15/18 22:01 Dose: 0.5 mg Fluoxetine HCl (Prozac) 10 mg PO DAILY [facility] Last Admin: 11/16/18 10:00 Dose: 10 mg Heparin Sodium (Porcine) (Heparin) 5,000 units SC Q12 [facility] Last Admin: 11/15/18 09:47 Dose: 5,000 units Ceftriaxone Sodium 1 gm/ (Sodium Chloride) 100 mls @ 100 mls/hr IVPB DAILY [facility]; Protocol Vancomycin HCl 1 gm/ Sodium (Chloride) 250 mls @ 166.7 mls/hr IVPB Q24H [facility]; P rotocol Lactobacillus Acidophilus (Bacid Acidophilus) 1 cap PO BID [facility] Last Admin: 11/16/18 17:25 Dose: 1 cap Pantoprazole Sodium (Protonix Ec Tab) 40 mg PO DAILY [facility] Last Admin: 11/16/18 10:00 Dose: 40 mg Tamsulosin HCl (Flomax) 0.4 mg PO DAILY [facility] Last Admin: 11/16/18 10:00 Dose: 0.4 mg Temazepam (Restoril) 15 mg PO HS PRN PRN Reason: Insomnia Last Admin: 11/15/18 22:01 Dose: 15 mg - Labs Labs: 11/16/18 06:25 11/16/18 06:25 PT 13.8 SECONDS (9.7-12.2) H 11/14/18 11:29 INR 1.3 11/14/18 11:29 APTT 28 SECONDS (21-34) 11/14/18 11:29 Attending/Attestation - Attestation I have personally seen and examined this patient.: Yes I have fully participated in the care of the patient.: Yes I have reviewed all pertinent clinical information, including history, physical exam and plan: Yes Notes (Text): seen and examined He wants his clonopine tonight s/p REduction of paraphymosis,cysto,prostate biopsy Urine MRSA d/w DR Washington continue ceftriaxone to cover Gram Neg,start on vanco 1 gram once a day to cover MRSA urine I agree with the resident's documentation
[2018-11-16] MEDS: cefTRIAXone IV 1 gm in Dextros 50 ML IVPB SCH (09:59)
[2018-11-16] MEDS: Pantoprazole 40 mg EC Tab PO SCH (10:00)
[2018-11-16] MEDS: Lactobacillus Acidophilus 500 MU Cap PO SCH ×2 (10:00→17:25)
[2018-11-16] MEDS ORDERED: Pneumococcal 23-Valent Vaccine IM ONE (10:00)
[2018-11-16] MEDS ORDERED: Gentamicin 80 mg in 0.9% NS 80 MG/100 ML BAG IVPB ONE (12:31)
[2018-11-16] MEDS ORDERED: Iohexol 240 200 ML ONE (12:32)
[2018-11-16] MEDS ORDERED: Propofol 10 mg/ml Inj (20 ML) ONE (12:35)
[2018-11-16] MEDS ORDERED: Etomidate 20 mg/10ml Inj IV ONE (12:35)
[2018-11-16] MEDS ORDERED: Lidocaine Hydrochloride 5 ML INJ ONE (12:35)
[2018-11-16] MEDS ORDERED: Lidocaine 2% Jelly (Uro-Jet) ONE (12:39)
[2018-11-16] MEDS ORDERED: ePHEDrine 50 mg/ml Inj ONE (12:58)
[2018-11-16] MEDS ORDERED: Bacitracin 500 Units/gm Oint Foilpak UD ONE (13:28)
[2018-11-16] MEDS ORDERED: HYDROmorphone 0.5 mg/0.5 ml ISec IVP PRN (13:35)
--- NOTE | 2018-11-16 14:46 | CP.PCM.PN ---
Subjective - Date & Time of Evaluation Date of Evaluation: 11/16/18 Time of Evaluation: 14:42 - Subjective Subjective: renal f/up note 78 year old male with PMHx of Anxiety, hx of jia sec to hydronephrosis is admitted with penile pain for 1 week. The hall was placed on 10/13/18 (due to hydronephrosis). He has followed up with urologist about 2 weeks ago and reports all was well at that time. Last week patient started to notice swelling, irritation, and blood around the insertion site of the hall. The pain became progressively worse PMHx: As above PSHx: Left incarcerated hernia repair (10/13/18), L inguinal hernia repair with mesh (2004), nasal mass excision Meds: Klonopin 0.5mg PO TID PRN, Prozac 10mg PO daily, Restoril 15mg PO QHS, Flomax All: NKDA SHx: Denied any alcohol, tobacco, or illicit drug use FHx: Unremarkable labs reviewed ROS: pt feels okay. denies CP/SOB Physical Examination: seen in PACU General Appearance: Comfortable, in no acute respiratory distress, co-operative . Vitals reviewed and noted as below Head; Atraumatic, normocephalic ENT: no ulcers no thrush. Tongue is midline. Oropharynx: no rash or ulcers. EYES: Pupils are equal, round and reactive to light accommodation. Eye muscles and extraocular movement intact. Sclera is anicteric. Neck; supple no lymphadenopathy, no thyromegaly or bruit Lungs: Normal respiratory rate/effort. Breath sounds bilateral equal and clear Heart: Normal rate. s1s2 normal. No rub or gallop. Extremities: trace edema. No varicose veins Neurological: Patient is alert, awake and oriented to person, place and time. No focal deficit. Strength bilateral appropriate and equal Skin: Warm and dry. Normal turgor. No rash. Palpitation: Normal elasticity for age Abdomen: Abdomen is soft. Bowel sounds +. There is no abdominal tenderness, no guarding/rigidity no organomegaly Psych: normal insight and normal affect/mood MSK: no joint tenderness or swelling. Digits and nails normal, no deformity : kidney or bladder not palpable. has hall. s/p left inguinal hernia repair A&P: penile pain/obstructive uropathy/hydronephrosis/hx of jia cr is normal, hall is draining is well. normal renal fxn monitor UOP jon short urology on board volume stable will sign off and follow PRN Objective - Vital Signs/Intake and Output Vital Signs (last 24 hours): Temp Pulse Resp BP Pulse Ox 97 F L 89 15 97/61 L 97 11/16/18 13:32 11/16/18 14:00 11/16/18 14:00 11/16/18 14:00 11/16/18 14:00 Intake and Output: 11/16/18 11/16/18 06:59 18:59 Intake Total 600 Output Total 600 800 Balance -600 -200 - Medications Medications: Current Medications Acetaminophen (Tylenol 325mg Tab) 650 mg PO Q6 PRN PRN Reason: Pain, Mild (1-3) Albuterol/Ipratropium (Duoneb 3 Mg/0.5 Mg (3 Ml) Ud) 3 ml INH RQ6 [facility] Last Admin: 11/16/18 13:36 Dose: Not Given Clonazepam (Klonopin) 0.5 mg PO TID PRN PRN Reason: Anxiety Last Admin: 11/15/18 22:01 Dose: 0.5 mg Fluoxetine HCl (Prozac) 10 mg PO DAILY [facility] Last Admin: 11/16/18 10:00 Dose: 10 mg Heparin Sodium (Porcine) (Heparin) 5,000 units SC Q12 [facility] Last Admin: 11/15/18 09:47 Dose: 5,000 units Hydromorphone HCl (Dilaudid) 0.5 mg IVP Q15M PRN PRN Reason: Pain, moderate (4-7) Stop: 11/16/18 15:35 Ceftriaxone Sodium (Rocephin Iv 1 Gm Duplex) 50 mls @ 100 mls/hr IVPB DAILY [facility]; Protocol Last Admin: 11/16/18 09:59 Dose: 100 mls/hr Lactobacillus Acidophilus (Bacid Acidophilus) 1 cap PO BID [facility] Last Admin: 11/16/18 10:00 Dose: 1 cap Ondansetron HCl (Zofran Inj) 4 mg IVP ONCE PRN PRN Reason: Nausea/Vomiting Stop: 11/16/18 15:35 Pantoprazole Sodium (Protonix Ec Tab) 40 mg PO DAILY [facility] Last Admin: 11/16/18 10:00 Dose: 40 mg Tamsulosin HCl (Flomax) 0.4 mg PO DAILY [facility] Last Admin: 11/16/18 10:00 Dose: 0.4 mg Temazepam (Restoril) 15 mg PO HS PRN PRN Reason: Insomnia Last Admin: 11/15/18 22:01 Dose: 15 mg - Labs Labs: 11/16/18 06:25 11/16/18 06:25 PT 13.8 SECONDS (9.7-12.2) H 11/14/18 11:29 INR 1.3 11/14/18 11:29 APTT 28 SECONDS (21-34) 11/14/18 11:29
--- NOTE | 2018-11-16 15:28 | RAD ---
Date of service: 11/16/2018 PROCEDURE: Fluoroscopy up to 1 hr HISTORY: HYPOTONIC BLADDER COMPARISON: TECHNIQUE: Fluoroscopy was provided in the operating room. 5 sec of fluoro time. Cumulative dose [id number] mGy. Five images were submitted FINDINGS: Bladder has an irregular trabeculated appearance. There multiple small diverticular projecting from the superior surface. IMPRESSION: As above
--- NOTE | 2018-11-16 17:11 | CARD ---
APPROVED REPORT Date of service: 11/14/2018 EKG Measurement Heart [id number] <Conclusion> Normal sinus rhythm Normal ECG
[2018-11-16 23:13] LABS: URINE BACTERIA RARE (<OCC); URINE BILIRUBIN NEGATIVE (NEGATIVE); URINE BLOOD 3+ (NEGATIVE); URINE CLARITY Clear (Clear); URINE COLOR Yellow (YELLOW); URINE GLUCOSE (UA) NORMAL (Normal); URINE LEUKOCYTE ESTERASE 2+ Leu/uL (Negative); URINE PROTEIN NEGATIVE (NEGATIVE); URINE UROBILINOGEN NORMAL mg/dL (0.2-1.0)
[2018-11-17] MEDS: Albuterol-Ipratrop 3 mg / 0.5 (3 ml) UD INH SCH ×4 (01:14→19:21)
[2018-11-17 06:56] LABS: BASO # 0.1 K/uL (0.0-0.2); BASO % 1.2 % (0.0-2.0); EOS # 0.7 K/uL (0.0-0.7); EOS % 7.6 % (0.0-4.0); HEMOGLOBIN 11.4 g/dL (12.0-18.0); LYMPH % 10.2 % (20.0-40.0); MEAN CELL VOLUME 89.2 fL (80.0-94.0); MEAN CORPUSCULAR HGB CONC 33.6 g/dL (33.0-37.0); MEAN PLATELET VOLUME 8.4 fL (7.2-11.7); MONO # 0.7 K/uL (0.0-0.8); NEUT # 7.2 K/uL (1.8-7.0); RBC 3.79 Mil/uL (4.40-5.90); RED CELL DISTRIBUTION WIDTH 14.3 % (11.5-14.5); WHITE BLOOD COUNT 9.7 K/uL (4.8-10.8)
[2018-11-17 07:16] LABS: ALB/GLOB RATIO 0.9 (1.0-2.1); ALBUMIN 2.7 g/dL (3.5-5.0); ALT/SGPT 26 U/L (21-72); AST/SGOT 24 U/L (17-59); BLOOD UREA NITROGEN 16 mg/dL (9-20); CALCIUM 8.4 mg/dl (8.6-10.4); GFR NON-AFRICAN AMERICAN > 60
--- NOTE | 2018-11-17 07:27 | CP.PCM.PN ---
<Ha Bailey - Last Filed: 11/17/18 12:53> Subjective - Date & Time of Evaluation Date of Evaluation: 11/17/18 Time of Evaluation: 07:27 - Subjective Subjective: PGY-1 Medicine Progress Note for Dr. Fitzpatrick Patient seen and examined at bedside this AM s/p reduction of paraphimosis, cystoscopy, and prostate biopsy. No complications reported, no acute overnight events. Patient states he is going back tomorrow to OR for follow-up procedure by urology. No acute somatic complaints at this time. Denies fever, chills, head ache, chest pain, shortness of breath, abdominal pain, n/v/d/c. Objective - Vital Signs/Intake and Output Vital Signs (last 24 hours): Temp Pulse Resp BP Pulse Ox 98.2 F 93 H 20 104/53 L 95 11/16/18 23:44 11/16/18 23:44 11/16/18 23:44 11/16/18 23:44 11/16/18 23:44 Intake and Output: 11/17/18 11/17/18 06:59 18:59 Intake Total 840 Output Total 850 Balance -10 - Medications Medications: Current Medications Acetaminophen (Tylenol 325mg Tab) 650 mg PO Q6 PRN PRN Reason: Pain, Mild (1-3) Albuterol/Ipratropium (Duoneb 3 Mg/0.5 Mg (3 Ml) Ud) 3 ml INH RQ6 [facility] Last Admin: 11/17/18 01:14 Dose: Not Given Clonazepam (Klonopin) 0.5 mg PO TID PRN PRN Reason: Anxiety Last Admin: 11/16/18 20:58 Dose: 0.5 mg Fluoxetine HCl (Prozac) 10 mg PO DAILY [facility] Last Admin: 11/16/18 10:00 Dose: 10 mg Heparin Sodium (Porcine) (Heparin) 5,000 units SC Q12 [facility] Last Admin: 11/15/18 09:47 Dose: 5,000 units Ceftriaxone Sodium 1 gm/ (Sodium Chloride) 100 mls @ 100 mls/hr IVPB DAILY [facility]; Protocol Vancomycin HCl 1 gm/ Sodium (Chloride) 250 mls @ 166.7 mls/hr IVPB Q24H [facility]; Protocol Last Admin: 11/16/18 20:58 Dose: 166.7 mls/hr Lactobacillus Acidophilus (Bacid Acidophilus) 1 cap PO BID [facility] Last Admin: 11/16/18 17:25 Dose: 1 cap Pantoprazole Sodium (Protonix Ec Tab) 40 mg PO DAILY [facility] Last Admin: 11/16/18 10:00 Dose: 40 mg Tamsulosin HCl (Flomax) 0.4 mg PO DAILY [facility] Last Admin: 11/16/18 10:00 Dose: 0.4 mg Temazepam (Restoril) 15 mg PO HS PRN PRN Reason: Insomnia Last Admin: 11/16/18 21:01 Dose: 15 mg - Labs Labs: 11/17/18 06:43 11/17/18 06:43 PT 13.8 SECONDS (9.7-12.2) H 11/14/18 11:29 INR 1.3 11/14/18 11:29 APTT 28 SECONDS (21-34) 11/14/18 11:29 - Constitutional Appears: No Acute Distress - Head Exam Head Exam: ATRAUMATIC, NORMAL INSPECTION, NORMOCEPHALIC - Eye Exam Eye Exam: EOMI, Normal appearance, PERRL - ENT Exam ENT Exam: Mucous Membranes Moist, Normal Exam - Neck Exam Neck Exam: Full ROM, Normal Inspection - Respiratory Exam Respiratory Exam: Clear to Ausculation Bilateral, NORMAL BREATHING PATTERN. absent: Accessory Muscle Use, Rales, Rhonchi, Wheezes, Respiratory Distress, Stridor - Cardiovascular Exam Cardiovascular Exam: REGULAR RHYTHM, +S1, +S2 - GI/Abdominal Exam GI & Abdominal Exam: Soft, Normal Bowel Sounds. absent: Distended, Firm, Guarding, Rigid, Tenderness, Organomegaly, Rebound Additional comments: surgical scar noted from prior surgeries - Exam Exam: Scrotal Swelling, Testicular Tenderness - Extremities Exam Extremities Exam: Normal Capillary Refill, Normal Inspection. absent: Calf Tenderness, Pedal Edema - Neurological Exam Neurological Exam: Alert, Awake, Oriented x3 - Psychiatric Exam Psychiatric exam: Anxious, Normal Affect - Skin Skin Exam: Dry, Intact, Normal Color, Warm Assessment and Plan - Assessment and Plan (Free Text) Assessment: 78 year old M with PMHx of anxiety, depression, agoraphobia, WILVER 2/2 hydronephrosis with hall inserted 10/13 presenting with penile pain x 1 week. Patient is s/p reduction of paraphimosis, cysto, prostate biopsy with no complications or pain meds given. Scheduled for follow-up procedure per Urology tomorrow. Plan: Paraphimosis - Urology recs (Dr. Gonzalez) appreciated - Hall in place since 10/2018 (prior admission) - pt s/p reduction of paraphimosis, cysto, prostate biopsy (11/16) - TURP scheduled for tomorrow (11/17) - f/u ECHO - All preop clearance ordered * CXR: no infiltrates noted * EKG: NSR, no st changes noted * Coags: INR 1.3 * Labs: WNL UTI -Likely 2/2 to indwelling hall -Previous admission WILVER 2/2 hydronephrosis - Hall placed 10/10/18 - Noted on UA - Urine Culture (11/14): MRSA+ >100k colonies - ID consulted (Dr. Washington), recs appreciated -started on Vancomycin 1 gm daily - continue with Rocephin 1 gram IVP daily Nonproductive Cough - Duonebs Q6H - CXR: no consolidation noted Anxiety, Depression and Agoraphobia - Patient was evaluated by Psych on previous admission (10/2018) - Recommended Prozac 10mg PO daily - Resumed patient's home regimen Restoril, Klonopin PPx, Diet, Disposition: -DVT ppx: SCDs, heparin 5000 units -GI ppx: protonix, probiotics added -Diet: regular diet, NPO after midnight for TURP procedure in am Case discussed with Dr. Amari Bailey DO, PGY-1 <Lauren Fitzpatrick - Last Filed: 11/17/18 18:24> Objective - Vital Signs/Intake and Output Vital Signs (last 24 hours): Temp Pulse Resp BP Pulse Ox 98.0 F 96 H 20 102/54 L 98 11/17/18 15:00 11/17/18 15:00 11/17/18 15:00 11/17/18 15:00 11/17/18 15:00 Intake and Output: 11/17/18 11/17/18 06:59 18:59 Intake Total 840 350 Output Total 850 1200 Balance -10 -850 - Medications Medications: Current Medications Acetaminophen (Tylenol 325mg Tab) 650 mg PO Q6 PRN PRN Reason: Pain, Mild (1-3) Albuterol/Ipratropium (Duoneb 3 Mg/0.5 Mg (3 Ml) Ud) 3 ml INH RQ6 [facility] Last Admin: 11/17/18 13:45 Dose: 3 ml Clonazepam (Klonopin) 0.5 mg PO TID PRN PRN Reason: Anxiety Last Admin: 11/17/18 09:16 Dose: 0.5 mg Fluoxetine HCl (Prozac) 10 mg PO DAILY [facility] Last Admin: 11/17/18 09:06 Dose: 10 mg Heparin Sodium (Porcine) (Heparin) 5,000 units SC Q12 [facility] Last Admin: 11/17/18 09:06 Dose: 5,000 units Ceftriaxone Sodium 1 gm/ (Sodium Chloride) 100 mls @ 100 mls/hr IVPB DAILY [facility]; Protocol Last Admin: 11/17/18 09:05 Dose: 100 mls/hr Vancomycin HCl 1 gm/ Sodium (Chloride) 250 mls @ 166.7 mls/hr IVPB Q24H [facility]; Protocol Last Admin: 11/16/18 20:58 Dose: 166.7 mls/hr Lactobacillus Acidophilus (Bacid Acidophilus) 1 cap PO BID [facility] Last Admin: 11/17/18 18:13 Dose: 1 cap Pantoprazole Sodium (Protonix Ec Tab) 40 mg PO DAILY [facility] Last Admin: 11/17/18 09:06 Dose: 40 mg Tamsulosin HCl (Flomax) 0.4 mg PO DAILY [facility] Last Admin: 11/17/18 09:06 Dose: 0.4 mg Temazepam (Restoril) 15 mg PO HS PRN PRN Reason: Insomnia Last Admin: 11/16/18 21:01 Dose: 15 mg - Labs Labs: 11/17/18 06:43 11/17/18 06:43 PT 13.8 SECONDS (9.7-12.2) H 11/14/18 11:29 INR 1.3 11/14/18 11:29 APTT 28 SECONDS (21-34) 11/14/18 11:29 Attending/Attestation - Attestation I have personally seen and examined this patient.: Yes I have fully participated in the care of the patient.: Yes I have reviewed all pertinent clinical information, including history, physical exam and plan: Yes Notes (Text): pt s/p reduction of paraphimosis, cysto, prostate biopsy (11/16) Patient is going for TURP tomorrow as per urologist continue ceftriaxone and vancomycin for his complicated UTI follow ID recommendation d/w resident and I agree with the recommendation
[2018-11-17] MEDS: Lactobacillus Acidophilus 500 MU Cap PO SCH ×2 (09:06→18:13)
[2018-11-17] MEDS: Pantoprazole 40 mg EC Tab PO SCH (09:06)
--- NOTE | 2018-11-17 15:31 | CP.PCM.CON ---
History of Present Illness - History of Present Illness History of Present Illness: dictated Past Patient History - Past Medical History & Family History Past Medical History?: Yes - Past Social History Smoking Status: Never Smoked - CARDIAC Hx Cardiac Disorders: No - NEUROLOGICAL Hx Neurological Disorder: No - HEENT Hx HEENT Problems: No - RENAL Hx Chronic Kidney Disease: No - ENDOCRINE/METABOLIC Hx Endocrine Disorders: No - HEMATOLOGICAL/ONCOLOGICAL Hx Blood Disorders: No - INTEGUMENTARY Hx Dermatological Problems: No - MUSCULOSKELETAL/RHEUMATOLOGICAL Hx Arthritis: Yes Hx Rheumatoid Arthritis: Yes - GASTROINTESTINAL Hx Gastritis: Yes - GENITOURINARY/GYNECOLOGICAL Hx Genitourinary Disorders: Yes Hx Prostate Cancer: Yes - PSYCHIATRIC Hx Depression: Yes Hx Substance Use: No - SURGICAL HISTORY Hx Surgeries: Yes Hx Herniorrhaphy: Yes (LEFT INGUINAL HERNIA REPAIR WITH MESH) - ANESTHESIA Hx Anesthesia: Yes Hx Anesthesia Reactions: No Hx Malignant Hyperthermia: No Meds Allergies/Adverse Reactions: Allergies Allergy/AdvReac Type Severity Reaction Status Date / Time No Known Allergies Allergy Verified 11/14/18 10:32 - Medications Medications: Current Medications Acetaminophen (Tylenol 325mg Tab) 650 mg PO Q6 PRN PRN Reason: Pain, Mild (1-3) Albuterol/Ipratropium (Duoneb 3 Mg/0.5 Mg (3 Ml) Ud) 3 ml INH RQ6 [facility]ENDA Last Admin: 11/17/18 13:45 Dose: 3 ml Clonazepam (Klonopin) 0.5 mg PO TID PRN PRN Reason: Anxiety Last Admin: 11/17/18 09:16 Dose: 0.5 mg Fluoxetine HCl (Prozac) 10 mg PO DAILY [facility] Last Admin: 11/17/18 09:06 Dose: 10 mg Heparin Sodium (Porcine) (Heparin) 5,000 units SC Q12 [facility] Last Admin: 11/17/18 09:06 Dose: 5,000 units Ceftriaxone Sodium 1 gm/ (Sodium Chloride) 100 mls @ 100 mls/hr IVPB DAILY [facility]; Protocol Last Admin: 11/17/18 09:05 Dose: 100 mls/hr Vancomycin HCl 1 gm/ Sodium (Chloride) 250 mls @ 166.7 mls/hr IVPB Q24H [facility]; Protocol Last Admin: 11/16/18 20:58 Dose: 166.7 mls/hr Lactobacillus Acidophilus (Bacid Acidophilus) 1 cap PO BID [facility]EN[facility] Last Admin: 11/17/18 09:06 Dose: 1 cap Pantoprazole Sodium (Protonix Ec Tab) 40 mg PO DAILY [facility] Last Admin: 11/17/18 09:06 Dose: 40 mg Tamsulosin HCl (Flomax) 0.4 mg PO DAILY [facility] Last Admin: 11/17/18 09:06 Dose: 0.4 mg Temazepam (Restoril) 15 mg PO HS PRN PRN Reason: Insomnia Last Admin: 11/16/18 21:01 Dose: 15 mg Results - Vital Signs Recent Vital Signs: Last Vital Signs Temp 98.5 F 11/17/18 08:00 Pulse 98 H 11/17/18 08:00 Resp 20 11/17/18 08:00 BP 116/69 11/17/18 08:00 Pulse Ox 96 11/17/18 08:00 - Labs Result Diagrams: 11/17/18 06:43 11/17/18 06:43 Labs: Laboratory Results - last 24 hr 11/16/18 11/17/18 11/17/18 22:44 06:43 06:43 WBC 9.7 RBC 3.79 L Hgb 11.4 L Hct 33.8 L MCV 89.2 MCH 30.0 MCHC 33.6 RDW 14.3 Plt Count 308 MPV 8.4 Neut % (Auto) 74.0 Lymph % (Auto) 10.2 L Thomas % (Auto) 7.0 Eos % (Auto) 7.6 H Baso % (Auto) 1.2 Neut # (Auto) 7.2 H Lymph # (Auto) 1.0 Thomas # (Auto) 0.7 Eos # (Auto) 0.7 Baso # (Auto) 0.1 ESR 60 H Sodium 134 Potassium 4.2 Chloride 99 Carbon Dioxide 29 Anion Gap 10 BUN 16 Creatinine 0.7 L Est GFR ( Amer) > 60 Est GFR (Non-Af Amer) > 60 Random Glucose 97 Calcium 8.4 L Phosphorus 4.1 Magnesium 1.8 Total Bilirubin 0.3 AST 24 ALT 26 Alkaline Phosphatase 102 Total Protein 5.8 L Albumin 2.7 L Globulin 3.1 Albumin/Globulin Ratio 0.9 L Urine Color Yellow Urine Clarity Clear Urine pH 6.0 Ur Specific [place] 1.018 Urine Protein Negative Urine Glucose (UA) Normal Urine Ketones Negative Urine Blood 3+ H Urine Nitrate Negative Urine Bilirubin Negative Urine Urobilinogen Normal Ur Leukocyte Esterase 2+ H Urine WBC (Auto) 83 H Urine RBC (Auto) 540 H Urine Bacteria Rare Hyaline Casts 3-5 H
--- NOTE | 2018-11-17 19:50 | CARD ---
APPROVED REPORT Date of service: 11/17/2018 EXAM: LIMITED Two-dimensional color Doppler. Other Information Quality : GoodRhythm : INDICATION Infection:Rule out subacute bacterial endocarditis LEFT VENTRICLE The left ventricle is normal size. There is borderline concentric left ventricular hypertrophy. Left ventricle systolic function is normal. The Ejection Fraction is 60-65%. There is normal LV segmental wall motion. No Doppler. There is no ventricular septal defect visualized. RIGHT VENTRICLE The right ventricle is mildly to moderately dilated. The right ventricular systolic function is normal. ATRIA The left atrium is mildly dilated. The right atrium is mildly dilated. AORTIC VALVE The aortic valve is mildly sclerotic. The aortic valve is tri-cuspid. No Doppler. No Doppler. MITRAL VALVE The mitral valve is normal in structure. There is no evidence of mitral valve prolapse. No Doppler. TRICUSPID VALVE Sugguestive of Edmund Anomaly, ventriculazation of RA No Doppler. PULMONIC VALVE The pulmonic valve is not well visualized. No Doppler. GREAT VESSELS The aortic root is normal in size. No Doppler. The IVC was not visualized. PERICARDIAL EFFUSION There is no pericardial effusion. <Conclusion> Left ventricle systolic function is normal. The Ejection Fraction is 60-65%. Sugguestive of Edmund Anomaly, ventriculazation of RA. Limited study, suboptimal not able to R/O endocarditis, consider severe PAH, need FINA.
[2018-11-18] MEDS: Albuterol-Ipratrop 3 mg / 0.5 (3 ml) UD INH SCH ×5 (01:45→19:20)
--- NOTE | 2018-11-18 04:30 | OP ---
PROCEDURE DATE: 11/16/2018 PREOPERATIVE DIAGNOSES: Elevated PSA, urinary retention, hypotonic neurogenic bladder, paraphimosis. POSTOPERATIVE DIAGNOSES: Paraphimosis, elevated PSA, prostatic hypertrophy, multiple bladder stone, prostate causing obstruction of the prostatic urethra. PROCEDURE: Prostatic biopsy, cysto and reduce of the paraphimosis. DESCRIPTION OF PROCEDURE: While the patient in lithotomy position and after starting anesthesia, genitalia prepped and draped in sterile fashion. The patient on Rocephin and giving gentamicin 80 mg, multiple prostatic biopsies taken from the right and the left. After that changed gloves and gown. Cysto revealed urethra normal, large prostate causing obstruction with length of the prostatic urethra 4.5 cm, severely trabeculated bladder, ____ and multiple bladder stones. Dome lateral wall within normal limits. The cystogram done before, which revealed the bladder looked like [place]ash[place] tree. The patient needs removal of bladder stone and TURP. The patient tolerated the procedure well, paraphimosis reduced after few attempts and Rosenthal catheter #18 inserted and the patient transferred to the recovery room in stable condition. Kavita Gonzalez MD JESSICA
--- NOTE | 2018-11-18 05:48 | CON ---
DATE: 11/17/2018 HISTORY OF PRESENT ILLNESS: This patient was admitted on 11/14/2018 with diagnosis of paraphimosis. He is very clear in giving history and other things are noted from the chart. He was here from 10/10/2018. He states initially he had come to the hospital on 10/10/2018. He came with abdominal pain. He thought he had gastritis. He was having 30 pounds weight loss, scrotal pain, and he had gastritis. His abdomen was bloated. He also had scrotal pain and he was found to have left inguinal pain and was not eating much. He had incarcerated hernia. He underwent a left incarcerated inguinal hernia surgery, which was done. He said he has had hernia repair in the past in 2004 or something, but this time they had to do it again with repair of left incarcerated inguinal hernia with the mesh and it was done by Dr. Early, left side and after that he had to leave from here to rehab and to rehab he went with the Rosenthal catheter and this time he returned with pain in his penis. He does have history of prostatitis, anxiety, agoraphobia, depression. He came into the emergency room, was brought in from the rehab to the emergency room with canal pain, which has been present for a week. He did have a Rosenthal put on 10/13/2018 for hydronephrosis probably for urinary retention. He follows with Dr. Gonzalez now about two weeks ago and reported all was well at that time, now comes in with swelling, irritation, and blood. He underwent procedure with Dr. Gonzalez. He reports he had a surgery on 11/16/2018, which was cystoscopy, cystogram, prostate biopsy, reduction of paraphimosis, so he underwent reduction and he was found to have MRSA in the urine and he was also given a dose of vancomycin yesterday and he is on vancomycin today. He is also being followed by the child neurologist at this time. He did have acute kidney issues due to hydronephrosis. Today, he did say whatever he is getting it is making him feel better today, it may be the surgery and the antibiotics. ALLERGIES: HE IS NOT ALLERGIC TO ANY MEDICINES. PAST MEDICAL HISTORY: Text. FAMILY HISTORY: Noncontributory. Now he is feeling slightly better today he has little appetites. Not feeling nauseous today. Otherwise, he has had symptoms. He denies any fever or chills. Denies ear or throat problems at this time. Denies any chest pain. No shortness of breath. SOCIAL HISTORY: Negative for smoking or drinking, or any drug abuse. GI is Dr. Chew, and he had a surgery last time on 10/13/[address] Early. He also had a neck surgery in 2004, which he said doing very well, for the left inguinal hernia because he came in with incarcerating. He also had a nasal mass thick lesion in the past. Now, he is feeling slightly better today. REVIEW OF SYSTEMS: He says he has no appetite to eat. He says he is not feeling nauseous today. Otherwise, he has had no symptoms. He denies any fever or chills. Denies any ear, nose, or throat problems at this time. Denies any chest pain. No shortness of breath cardiac haley. Respiratory: He has had some cough and I will discontinue the IV fluids. He denies any shortness of breath, wheezing, or chest congestion at this time since the flu has gone. GI: He denies abdominal pain, constipation, diarrhea, nausea, or vomiting. : He does have pain in the penile area and he still has a Rosenthal catheter, but he says it is slightly better today. MUSCULOSKELETAL: Normal gait. He had some back pain . SKIN: He has dry skin. No rashes. NEUROLOGICAL: He has no passing out. No weakness. He is a frail individual otherwise. PSYCH: He has anxiety, depression. He has some suicidal ideation. No visual hallucinations. ENDOCRINE: He has polydipsia, polyphagia, and polyuria. He has no endocrine issues. Those are all absent. HEMATOLOGICAL: Hematologically absent easy bleeding, bruising, or any lymphadenopathy and other symptoms. MEDICATIONS: He is on Tylenol, Duoneb. He did have some issues with cough and breathing this morning. Ceftriaxone, Klonopin, Prozac, heparin, Bacid, pantoprazole, Flomax, Restoril, vancomycin. So I left him on the Rocephin also for now until I see him. PHYSICAL EXAMINATION: VITAL SIGNS: On examination, his temperature is 98.5, pulse is 98, blood pressure 116/69, and respirations 20. HEENT: Head is atraumatic, normocephalic. Pupils are reacting to light. Eye movements are unremarkable. NECK: Supple. JVP is flat. CARDIOPULMONARY: S1, S2 are regular. No murmurs appreciated. LUNGS: Have coarse breath sounds at this time. No wheezing present. No rhonchi. ABDOMEN: Soft, nontender. No guarding. No rigidity present. EXTREMITIES: No edema, clubbing, or cyanosis. SKIN: No rashes. NEUROLOGIC: He is able to talk and tell me his complaints. LABORATORY DATA: White count is 9.7 today, hemoglobin 11.4, hematocrit 33.4, and platelet count is 308. ESR 60. Sodium is 134, potassium 4.2, chloride 99, CO2 is 29, BUN is 16, creatinine 0.7. UA shows 2+ leukocytes, rbc 83, wbc 540, bacteria rare. His urine culture came out positive for MRSA. He is in contact precaution and he is in a single room. He is sensitive to vancomycin. Sensitivity to Zaroxolyn. I think we should give him vancomycin at least 7 to 10 days to recover and sensitivity to Linezolid, it is pretty low. Breathing high actually. Also to check the blood cultures if they were done. Noted blood cultures I had ordered yesterday. I hope they had done. They did blood cultures yesterday. Urine culture will follow that. IMPRESSION: At this time, impression is he has a complicated urinary tract infection with recent history of inguinal hernia surgery, now with paraphimosis and benign prostatic hypertrophy and with methicillin-resistant Staphylococcus aureus in the urine, suggest to continue vancomycin and Rocephin. If he remains stable tomorrow and the urine culture comes back negative, we will discontinue Rocephin and we will continue with the vancomycin. I will give it for 7 days minimum, Dr. Gonzalez has to add. Zahra Washington MD
[2018-11-18 06:47] LABS: BASO # 0.1 K/uL (0.0-0.2); BASO % 0.8 % (0.0-2.0); EOS # 0.7 K/uL (0.0-0.7); EOS % 9.3 % (0.0-4.0); HEMOGLOBIN 11.9 g/dL (12.0-18.0); LYMPH # 1.4 K/uL (1.0-4.3); LYMPH % 18.7 % (20.0-40.0); MEAN CELL VOLUME 89.5 fL (80.0-94.0); MEAN CORPUSCULAR HEMOGLOBIN 30.6 pg (27.0-31.0); MEAN CORPUSCULAR HGB CONC 34.2 g/dL (33.0-37.0); MEAN PLATELET VOLUME 8.1 fL (7.2-11.7); MONO # 0.6 K/uL (0.0-0.8); MONO % 7.8 % (0.0-10.0); NEUT # 4.8 K/uL (1.8-7.0); NEUT % 63.4 % (50.0-75.0); RBC 3.89 Mil/uL (4.40-5.90); RED CELL DISTRIBUTION WIDTH 14.7 % (11.5-14.5); WHITE BLOOD COUNT 7.5 K/uL (4.8-10.8)
[2018-11-18 07:02] LABS: ALBUMIN 3.1 g/dL (3.5-5.0); ALT/SGPT 29 U/L (21-72); AST/SGOT 27 U/L (17-59); BLOOD UREA NITROGEN 16 mg/dL (9-20); CALCIUM 8.6 mg/dl (8.6-10.4); GFR NON-AFRICAN AMERICAN > 60
[2018-11-18] MEDS: Lactobacillus Acidophilus 500 MU Cap PO SCH ×2 (09:17→17:22)
[2018-11-18] MEDS: Pantoprazole 40 mg EC Tab PO SCH (09:17)
--- NOTE | 2018-11-18 09:40 | CP.PCM.PN ---
<Ha Bailey - Last Filed: 11/18/18 14:17> Subjective - Date & Time of Evaluation Date of Evaluation: 11/18/18 Time of Evaluation: 09:40 - Subjective Subjective: PGY-1 Medicine Progress Note for Dr. Fitzpatrick Patient seen and examined at bedside this AM, resting comfortably. No acute overnight events reported. TURP procedure was postponed to later this afternoon. Patient very pleasant, has excellent understanding of his hospital course, and expressed thanks for care thus far. No acute somatic complaints at this time. Continues to deny fever, chills, headache, chest pain, shortness of breath, abdominal pain, n/v/d/c. Objective - Vital Signs/Intake and Output Vital Signs (last 24 hours): Temp Pulse Resp BP Pulse Ox 97.8 F 77 20 169/57 H 99 11/18/18 09:00 11/18/18 09:00 11/18/18 09:00 11/18/18 09:00 11/18/18 09:00 Intake and Output: 11/18/18 11/18/18 06:59 18:59 Intake Total 400 50 Output Total 900 800 Balance -500 -750 - Medications Medications: Current Medications Acetaminophen (Tylenol 325mg Tab) 650 mg PO Q6 PRN PRN Reason: Pain, Mild (1-3) Last Admin: 11/18/18 00:12 Dose: 650 mg Albuterol/Ipratropium (Duoneb 3 Mg/0.5 Mg (3 Ml) Ud) 3 ml INH RQ6 [facility]ENDA Last Admin: 11/18/18 07:30 Dose: 3 ml Clonazepam (Klonopin) 0.5 mg PO TID PRN PRN Reason: Anxiety Last Admin: 11/18/18 09:26 Dose: 0.5 mg Fluoxetine HCl (Prozac) 10 mg PO DAILY [facility] Last Admin: 11/18/18 09:17 Dose: 10 mg Heparin Sodium (Porcine) (Heparin) 5,000 units SC Q12 [facility] Last Admin: 11/18/18 09:18 Dose: Not Given Ceftriaxone Sodium 1 gm/ (Sodium Chloride) 100 mls @ 100 mls/hr IVPB DAILY [facility]; Protocol Last Admin: 11/17/18 09:05 Dose: 100 mls/hr Vancomycin HCl 1 gm/ Sodium (Chloride) 250 mls @ 166.7 mls/hr IVPB Q24H [facility]; Protocol Last Admin: 11/17/18 18:50 Dose: 166.7 mls/hr Lactobacillus Acidophilus (Bacid Acidophilus) 1 cap PO BID [facility] Last Admin: 11/18/18 09:17 Dose: 1 cap Pantoprazole Sodium (Protonix Ec Tab) 40 mg PO DAILY [facility] Last Admin: 11/18/18 09:17 Dose: 40 mg Tamsulosin HCl (Flomax) 0.4 mg PO DAILY [facility] Last Admin: 11/18/18 09:17 Dose: 0.4 mg Temazepam (Restoril) 15 mg PO HS PRN PRN Reason: Insomnia Last Admin: 11/17/18 21:19 Dose: 15 mg - Labs Labs: 11/18/18 06:35 11/18/18 06:35 PT 13.8 SECONDS (9.7-12.2) H 11/14/18 11:29 INR 1.3 11/14/18 11:29 APTT 28 SECONDS (21-34) 11/14/18 11:29 - Constitutional Appears: No Acute Distress - Head Exam Head Exam: ATRAUMATIC, NORMAL INSPECTION, NORMOCEPHALIC - Eye Exam Eye Exam: EOMI, Normal appearance, PERRL - ENT Exam ENT Exam: Mucous Membranes Moist, Normal Exam - Neck Exam Neck Exam: Full ROM, Normal Inspection - Respiratory Exam Respiratory Exam: Clear to Ausculation Bilateral, NORMAL BREATHING PATTERN. absent: Accessory Muscle Use, Respiratory Distress - Cardiovascular Exam Cardiovascular Exam: REGULAR RHYTHM, +S1, +S2 - GI/Abdominal Exam GI & Abdominal Exam: Soft, Normal Bowel Sounds Additional comments: surgical scar noted from prior surgeries - Exam Exam: Scrotal Swelling, Testicular Tenderness Additional comments: hall cath in place draining clear yellow urine adequately - Extremities Exam Extremities Exam: Full ROM, Normal Capillary Refill, Normal Inspection. absent: Calf Tenderness, Pedal Edema - Neurological Exam Neurological Exam: Alert, Awake, Oriented x3 - Psychiatric Exam Psychiatric exam: Normal Affect, Normal Mood - Skin Skin Exam: Dry, Intact, Normal Color, Warm Assessment and Plan - Assessment and Plan (Free Text) Assessment: 78 year old M with PMHx of anxiety, depression, agoraphobia, WILVER 2/2 hydronephrosis with hall inserted 10/13 presenting with penile pain x 1 week. Patient is s/p reduction of paraphimosis, cysto, prostate biopsy with no complications or pain meds given. TURP procedure was postponed, scheduled for this afternoon. Plan: Paraphimosis - Urology recs (Dr. Gonzalez) appreciated - Hall in place since 10/2018 (prior admission) - pt s/p reduction of paraphimosis, cysto, prostate biopsy (11/16) - TURP schedule for this afternoon - ECHO: LV systolic function normal, EF 60-65%, suggestive of Edmund anomaly; Limited study, suboptimal not able to r/o endocarditis - All preop clearance ordered * CXR: no infiltrates noted * EKG: NSR, no st changes noted * Coags: INR 1.3 * Labs: WNL UTI -Likely 2/2 to indwelling hall -Previous admission WILVER 2/2 hydronephrosis - Hall placed 10/10/18 - Noted on UA - Urine Culture (11/14): MRSA+ >100k colonies - ID consulted (Dr. Washington), recs appreciated -continue Vancomycin 1 gm daily -continue with Rocephin 1 gram IVP daily Nonproductive Cough - Duonebs Q6H - CXR: no consolidation noted Anxiety, Depression and Agoraphobia - Patient was evaluated by Psych on previous admission (10/2018) - Recommended Prozac 10mg PO daily - Resumed patient's home regimen Restoril, Klonopin PPx, Diet, Disposition: -DVT ppx: SCDs, heparin 5000 units -GI ppx: protonix, probiotics added -Diet: NPO Case discussed with Dr. Amari Bailey DO, PGY-1 <Lauren Fitzpatrick - Last Filed: 11/18/18 14:34> Objective - Vital Signs/Intake and Output Vital Signs (last 24 hours): Temp Pulse Resp BP Pulse Ox 97.8 F 77 20 169/57 H 99 11/18/18 09:00 11/18/18 09:00 11/18/18 09:00 11/18/18 09:00 11/18/18 09:00 Intake and Output: 11/18/18 11/18/18 06:59 18:59 Intake Total 400 50 Output Total 900 800 Balance -500 -750 - Medications Medications: Current Medications Acetaminophen (Tylenol 325mg Tab) 650 mg PO Q6 PRN PRN Reason: Pain, Mild (1-3) Last Admin: 11/18/18 11:39 Dose: 650 mg Albuterol/Ipratropium (Duoneb 3 Mg/0.5 Mg (3 Ml) Ud) 3 ml INH RQ6 [facility]EN[facility] Last Admin: 11/18/18 13:36 Dose: Not Given Clonazepam (Klonopin) 0.5 mg PO TID PRN PRN Reason: Anxiety Last Admin: 11/18/18 09:26 Dose: 0.5 mg Fluoxetine HCl (Prozac) 10 mg PO DAILY [facility] Last Admin: 11/18/18 09:17 Dose: 10 mg Heparin Sodium (Porcine) (Heparin) 5,000 units SC Q12 [facility] Last Admin: 11/18/18 09:18 Dose: Not Given Ceftriaxone Sodium 1 gm/ (Sodium Chloride) 100 mls @ 100 mls/hr IVPB DAILY [facility]; Protocol Last Admin: 11/18/18 10:04 Dose: 100 mls/hr Vancomycin HCl 1 gm/ Sodium (Chloride) 250 mls @ 166.7 mls/hr IVPB Q24H [facility]; Protocol Last Admin: 11/17/18 18:50 Dose: 166.7 mls/hr Lactobacillus Acidophilus (Bacid Acidophilus) 1 cap PO BID [facility] Last Admin: 11/18/18 09:17 Dose: 1 cap Pantoprazole Sodium (Protonix Ec Tab) 40 mg PO DAILY [facility] Last Admin: 11/18/18 09:17 Dose: 40 mg Tamsulosin HCl (Flomax) 0.4 mg PO DAILY [facility] Last Admin: 11/18/18 09:17 Dose: 0.4 mg Temazepam (Restoril) 15 mg PO HS PRN PRN Reason: Insomnia Last Admin: 11/17/18 21:19 Dose: 15 mg - Labs Labs: 11/18/18 06:35 11/18/18 06:35 PT 13.8 SECONDS (9.7-12.2) H 11/14/18 11:29 INR 1.3 11/14/18 11:29 APTT 28 SECONDS (21-34) 11/14/18 11:29 Attending/Attestation - Attestation I have personally seen and examined this patient.: Yes I have fully participated in the care of the patient.: Yes I have reviewed all pertinent clinical information, including history, physical exam and plan: Yes Notes (Text): This is a 78years old pleasant male s/p reduction of paraphimosis, cysto, prostate biopsy (11/16),has bladder stone spoke to his urologist. He is going for TURP today d/w DR Washington. patient will continue his vanco and ceftriaxone d/w resident I agree with the documentation
[2018-11-18] MEDS ORDERED: Etomidate 20 mg/10ml Inj IV ONE (13:38)
[2018-11-18] MEDS ORDERED: Bacitracin 500 Units/gm Oint Foilpak UD ONE (15:02)
[2018-11-18] MEDS ORDERED: Oxycodone/Acetaminophen 5/325 mg Tab PO PRN (15:13)
[2018-11-18] MEDS: Lactated Ringer's 1,000 ML IV SCH (16:50)
[2018-11-18] MEDS: Bisacodyl 5mg EC Tab PO SCH (21:40)
[2018-11-19] MEDS: Albuterol-Ipratrop 3 mg / 0.5 (3 ml) UD INH SCH ×4 (01:31→20:58)
--- NOTE | 2018-11-19 06:41 | OP ---
PROCEDURE DATE: 11/18/2018 PREOPERATIVE DIAGNOSES: Prostatic hypertrophy causing obstruction, elevated prostate-specific antigen, and multiple bladder stones. POSTOPERATIVE DIAGNOSES: Prostatic hypertrophy causing obstruction, elevated prostate-specific antigen, and multiple bladder stones. PROCEDURES: Irrigating and removing of bladder stone, transurethral resection of the prostate. DESCRIPTION OF PROCEDURE: While the patient in lithotomy position and after starting anesthesia, genitalia were prepped and draped in the sterile fashion. The patient was placed in lithotomy and protection of the leg done. The patient on antibiotics. He is on Rocephin and received by his physician vancomycin. The urethra was dilated and #26 resectoscope sheath was inserted. The bladder was heavily trabeculated with multiple bladder stones. This irrigated and removed, one by one fished by the loop. Deep groove made at 11 o'clock and another deep groove made at 1 o'clock. All the lateral tissue down to the level of the verumontanum resected. There was no obstruction between the bladder neck and the verumontanum. After control of the bleeding, irrigation of the tissue. The tissue was then sent for pathology. The stones sent for analysis. The bladder filled, the scope removed, and putting pressure showed good stream. A #24 three-way Rosenthal inserted and irrigation was clear. The patient was transferred to the recovery room in stable condition. Kavita Gonzalez MD
[2018-11-19] MEDS: Lactated Ringer's 1,000 ML IV SCH ×3 (06:51→21:17)
--- NOTE | 2018-11-19 07:12 | CP.PCM.PN ---
<Ha Bailey - Last Filed: 11/19/18 16:29> Subjective - Date & Time of Evaluation Date of Evaluation: 11/19/18 Time of Evaluation: 07:09 - Subjective Subjective: PGY-1 Medicine Progress Note for Dr. Fitzpatrick Patient seen and examined at bedside this AM s/p TURP procedure. Remains in good spirits. No acute somatic complaints at this time. Denies fever, chills, headache, chest pain, shortness of breath, abdominal pain, n/v/d/c. Objective - Vital Signs/Intake and Output Vital Signs (last 24 hours): Temp Pulse Resp BP Pulse Ox 97.4 F L 85 20 123/73 95 11/18/18 16:11 11/18/18 16:11 11/18/18 16:11 11/18/18 16:11 11/18/18 16:11 Intake and Output: 11/19/18 11/19/18 06:59 18:59 Intake Total 3800 Output Total 4500 Balance -700 - Medications Medications: Current Medications Acetaminophen (Tylenol 325mg Tab) 650 mg PO Q6 PRN PRN Reason: Pain, Mild (1-3) Last Admin: 11/18/18 11:39 Dose: 650 mg Albuterol/Ipratropium (Duoneb 3 Mg/0.5 Mg (3 Ml) Ud) 3 ml INH RQ6 [facility] Last Admin: 11/19/18 01:31 Dose: Not Given Bisacodyl (Dulcolax) 10 mg PO HS [facility] Last Admin: 11/18/18 21:40 Dose: 10 mg Clonazepam (Klonopin) 0.5 mg PO TID PRN PRN Reason: Anxiety Last Admin: 11/18/18 21:40 Dose: 0.5 mg Fluoxetine HCl (Prozac) 10 mg PO DAILY [facility] Last Admin: 11/18/18 09:17 Dose: 10 mg Heparin Sodium (Porcine) (Heparin) 5,000 units SC Q12 [facility] Last Admin: 11/18/18 21:40 Dose: 5,000 units Ceftriaxone Sodium 1 gm/ (Sodium Chloride) 100 mls @ 100 mls/hr IVPB DAILY [facility]; Protocol Last Admin: 11/18/18 10:04 Dose: 100 mls/hr Vancomycin HCl 1 gm/ Sodium (Chloride) 250 mls @ 166.7 mls/hr IVPB Q24H [facility]; Protocol Last Admin: 11/18/18 19:30 Dose: 166.7 mls/hr Lactated Ringer's (Lactated Ringer's) 1,000 mls @ 100 mls/hr IV .Q10H [facility] Last Admin: 11/19/18 06:51 Dose: 100 mls/hr Lactobacillus Acidophilus (Bacid Acidophilus) 1 cap PO BID [facility] Last Admin: 11/18/18 17:22 Dose: 1 cap Oxycodone/Acetaminophen (Percocet 5/325 Mg Tab) 1 tab PO Q6H PRN PRN Reason: Pain, moderate (4-7) Stop: 11/21/18 15:14 Pantoprazole Sodium (Protonix Ec Tab) 40 mg PO DAILY [facility] Last Admin: 11/18/18 09:17 Dose: 40 mg Tamsulosin HCl (Flomax) 0.4 mg PO BID [facility] Last Admin: 11/18/18 17:23 Dose: 0.4 mg Temazepam (Restoril) 15 mg PO HS PRN PRN Reason: Insomnia Last Admin: 11/18/18 21:40 Dose: 15 mg - Labs Labs: 11/18/18 06:35 11/18/18 06:35 PT 13.8 SECONDS (9.7-12.2) H 11/14/18 11:29 INR 1.3 11/14/18 11:29 APTT 28 SECONDS (21-34) 11/14/18 11:29 - Constitutional Appears: Non-toxic, No Acute Distress - Head Exam Head Exam: ATRAUMATIC, NORMAL INSPECTION, NORMOCEPHALIC - Eye Exam Eye Exam: EOMI, Normal appearance, PERRL - ENT Exam ENT Exam: Mucous Membranes Moist, Normal Exam - Neck Exam Neck Exam: Full ROM, Normal Inspection - Respiratory Exam Respiratory Exam: Clear to Ausculation Bilateral, NORMAL BREATHING PATTERN. absent: Accessory Muscle Use, Rales, Rhonchi, Wheezes, Respiratory Distress, Stridor - Cardiovascular Exam Cardiovascular Exam: REGULAR RHYTHM, +S1, +S2 - GI/Abdominal Exam GI & Abdominal Exam: Soft, Normal Bowel Sounds. absent: Distended, Firm, Guarding, Rigid, Tenderness, Organomegaly Additional comments: surgical scar noted from prior surgeries - Exam Additional comments: hall catheter in place draining clear yellow urine adequately - Extremities Exam Extremities Exam: Full ROM, Normal Capillary Refill, Normal Inspection. absent: Calf Tenderness, Pedal Edema - Neurological Exam Neurological Exam: Alert, Awake, Oriented x3 - Psychiatric Exam Psychiatric exam: Normal Affect, Normal Mood - Skin Skin Exam: Dry, Intact, Normal Color, Warm Assessment and Plan - Assessment and Plan (Free Text) Assessment: 78 year old M with PMHx of anxiety, depression, agoraphobia, WILVER 2/2 hydronephrosis with hall inserted 10/13 presenting with penile pain x 1 week. Patient is s/p reduction of paraphimosis, cysto, prostate biopsy with no complications or pain meds given. Now s/p TURP w/ multiple bladder stones removed. Plan: Paraphimosis Benign Prostatic Hyperplasia - Urology recs (Dr. 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 UTI, MRSA+ -Likely 2/2 to indwelling hall -Previous admission WILVER 2/2 hydronephrosis - Hall placed 10/10/18 - Noted on UA - Urine Culture (11/14): MRSA+ >100k colonies - ID consulted (Dr. Washington), recs appreciated -Vancomycin 1 gm daily -Rocephin 1 gram IVP daily -f/u repeat urine cx; if negative, march d/c rocephin, continue vancomycin for 7 days Nonproductive Cough - Duonebs Q6H - CXR: no consolidation noted Anxiety, Depression and Agoraphobia - Patient was evaluated by Psych on previous admission (10/2018) - Recommended Prozac 10mg PO daily - Resumed patient's home regimen Restoril, Klonopin PPx, Diet, Disposition: -DVT ppx: SCDs, heparin 5000 units -GI ppx: protonix, probiotics added -Diet: regular diet Case discussed with Dr. Amari Bailey DO, PGY-1 <Lauern Fitzpatrick - Last Filed: 12/21/18 20:10> Objective - Vital Signs/Intake and Output Vital Signs (last 24 hours): Temp Pulse Resp BP Pulse Ox 97.5 F L 103 H 20 119/68 95 11/20/18 16:00 11/20/18 16:00 11/20/18 16:00 11/20/18 16:00 11/20/18 16:00 Intake and Output: 11/20/18 11/21/18 18:59 06:59 Intake Total 1550 Output Total 1700 Balance -150 - Medications Medications: Current Medications Acetaminophen (Tylenol 325mg Tab) 650 mg PO Q6 PRN PRN Reason: Pain, Mild (1-3) Last Admin: 11/18/18 11:39 Dose: 650 mg Albuterol/Ipratropium (Duoneb 3 Mg/0.5 Mg (3 Ml) Ud) 3 ml INH RQ6 [facility] Last Admin: 11/20/18 13:29 Dose: 3 ml Clonazepam (Klonopin) 0.5 mg PO TID PRN PRN Reason: Anxiety Last Admin: 11/20/18 19:46 Dose: 0.5 mg Fluoxetine HCl (Prozac) 10 mg PO DAILY [facility] Last Admin: 11/20/18 10:04 Dose: 10 mg Ceftriaxone Sodium 1 gm/ (Sodium Chloride) 100 mls @ 100 mls/hr IVPB DAILY [facility]; Protocol Last Admin: 11/20/18 10:40 Dose: 100 mls/hr Vancomycin HCl 1 gm/ Sodium (Chloride) 250 mls @ 166.7 mls/hr IVPB Q24H [facility]; Protocol Last Admin: 11/20/18 19:53 Dose: 166.7 mls/hr Lactated Ringer's (Lactated Ringer's) 1,000 mls @ 100 mls/hr IV .Q10H [facility] Last Admin: 11/20/18 18:03 Dose: 100 mls/hr Lactobacillus Acidophilus (Bacid Acidophilus) 1 cap PO BID [facility] Last Admin: 11/20/18 18:06 Dose: 1 cap Ondansetron HCl (Zofran Tab) 4 mg PO Q4H PRN PRN Reason: Nausea/Vomiting Oxycodone/Acetaminophen (Percocet 5/325 Mg Tab) 1 tab PO Q6H PRN PRN Reason: Pain, moderate (4-7) Stop: 11/21/18 15:14 Last Admin: 11/20/18 18:39 Dose: 1 tab Pantoprazole Sodium (Protonix Ec Tab) 40 mg PO DAILY [facility] Last Admin: 11/20/18 10:03 Dose: 40 mg Tamsulosin HCl (Flomax) 0.4 mg PO BID [facility] Last Admin: 11/20/18 18:06 Dose: 0.4 mg Temazepam (Restoril) 15 mg PO HS PRN PRN Reason: Insomnia Last Admin: 11/19/18 21:28 Dose: 15 mg - Labs Labs: 11/20/18 08:12 11/20/18 08:12 PT 13.8 SECONDS (9.7-12.2) H 11/14/18 11:29 INR 1.3 11/14/18 11:29 APTT 28 SECONDS (21-34) 11/14/18 11:29 Attending/Attestation - Attestation I have personally seen and examined this patient.: Yes I have fully participated in the care of the patient.: Yes I have reviewed all pertinent clinical information, including history, physical exam and plan: Yes Notes (Text): s/p TURP,on bladder irrigation follow urologist no complain assessment and the plan discussed with the resdent
[2018-11-19 07:27] LABS: BASO # 0.1 K/uL (0.0-0.2); BASO % 0.7 % (0.0-2.0); EOS # 0.6 K/uL (0.0-0.7); EOS % 7.6 % (0.0-4.0); HEMOGLOBIN 11.6 g/dL (12.0-18.0); LYMPH # 1.3 K/uL (1.0-4.3); LYMPH % 15.9 % (20.0-40.0); MEAN CELL VOLUME 89.4 fL (80.0-94.0); MEAN CORPUSCULAR HEMOGLOBIN 30.7 pg (27.0-31.0); MEAN CORPUSCULAR HGB CONC 34.4 g/dL (33.0-37.0); MONO # 0.5 K/uL (0.0-0.8); MONO % 6.3 % (0.0-10.0); NEUT # 5.8 K/uL (1.8-7.0); NEUT % 69.5 % (50.0-75.0); RBC 3.78 Mil/uL (4.40-5.90); RED CELL DISTRIBUTION WIDTH 14.7 % (11.5-14.5); WHITE BLOOD COUNT 8.3 K/uL (4.8-10.8)
[2018-11-19 07:53] LABS: ALBUMIN 2.9 g/dL (3.5-5.0); ALT/SGPT 27 U/L (21-72); AST/SGOT 21 U/L (17-59); BLOOD UREA NITROGEN 14 mg/dL (9-20); CALCIUM 8.4 mg/dl (8.6-10.4); GFR NON-AFRICAN AMERICAN > 60
[2018-11-19] MEDS: Pantoprazole 40 mg EC Tab PO SCH (10:59)
[2018-11-19] MEDS: Lactobacillus Acidophilus 500 MU Cap PO SCH ×2 (10:59→17:57)
--- NOTE | 2018-11-19 14:44 | CP.PCM.PN ---
Subjective - Date & Time of Evaluation Date of Evaluation: 11/19/18 Time of Evaluation: 14:00 - Subjective Subjective: dictated Objective - Vital Signs/Intake and Output Vital Signs (last 24 hours): Temp Pulse Resp BP Pulse Ox 98.1 F 89 20 104/63 100 11/19/18 07:00 11/19/18 07:00 11/19/18 07:00 11/19/18 07:00 11/19/18 07:00 Intake and Output: 11/19/18 11/19/18 06:59 18:59 Intake Total 3800 8700 Output Total 4500 9250 Balance -700 -550 - Medications Medications: Current Medications Acetaminophen (Tylenol 325mg Tab) 650 mg PO Q6 PRN PRN Reason: Pain, Mild (1-3) Last Admin: 11/18/18 11:39 Dose: 650 mg Albuterol/Ipratropium (Duoneb 3 Mg/0.5 Mg (3 Ml) Ud) 3 ml INH RQ6 [facility] Last Admin: 11/19/18 13:21 Dose: 3 ml Bisacodyl (Dulcolax) 10 mg PO HS [facility] Last Admin: 11/18/18 21:40 Dose: 10 mg Clonazepam (Klonopin) 0.5 mg PO TID PRN PRN Reason: Anxiety Last Admin: 11/18/18 21:40 Dose: 0.5 mg Fluoxetine HCl (Prozac) 10 mg PO DAILY [facility] Last Admin: 11/19/18 11:06 Dose: 10 mg Heparin Sodium (Porcine) (Heparin) 5,000 units SC Q12 [facility] Last Admin: 11/19/18 12:18 Dose: 5,000 units Ceftriaxone Sodium 1 gm/ (Sodium Chloride) 100 mls @ 100 mls/hr IVPB DAILY [facility]; Protocol Last Admin: 11/19/18 11:06 Dose: 100 mls/hr Vancomycin HCl 1 gm/ Sodium (Chloride) 250 mls @ 166.7 mls/hr IVPB Q24H [facility]; Protocol Last Admin: 11/18/18 19:30 Dose: 166.7 mls/hr Lactated Ringer's (Lactated Ringer's) 1,000 mls @ 100 mls/hr IV .Q10H [facility] Last Admin: 11/19/18 12:20 Dose: 100 mls/hr Lactobacillus Acidophilus (Bacid Acidophilus) 1 cap PO BID [facility] Last Admin: 11/19/18 10:59 Dose: 1 cap Oxycodone/Acetaminophen (Percocet 5/325 Mg Tab) 1 tab PO Q6H PRN PRN Reason: Pain, moderate (4-7) Stop: 11/21/18 15:14 Pantoprazole Sodium (Protonix Ec Tab) 40 mg PO DAILY [facility] Last Admin: 11/19/18 10:59 Dose: 40 mg Tamsulosin HCl (Flomax) 0.4 mg PO BID [facility] Last Admin: 11/19/18 11:00 Dose: 0.4 mg Temazepam (Restoril) 15 mg PO HS PRN PRN Reason: Insomnia Last Admin: 11/18/18 21:40 Dose: 15 mg - Labs Labs: 11/19/18 07:17 11/19/18 07:17 PT 13.8 SECONDS (9.7-12.2) H 11/14/18 11:29 INR 1.3 11/14/18 11:29 APTT 28 SECONDS (21-34) 11/14/18 11:29
[2018-11-19] MEDS: Bisacodyl 5mg EC Tab PO SCH (21:28)
--- NOTE | 2018-11-19 23:04 | PN ---
DATE: 11/20/2018 SUBJECTIVE: I went to see the patient. He has had a transurethral resection of the prostate procedure. Today, he says he feels little nauseous. He did have some sore throat but it is getting better, he says. He was awake and alert. Denied any shortness of breath. No chest pain. No abdominal pain. He did say he was little nauseous but denied any other complaints. He still has a Rosenthal catheter. He still is on vancomycin and Rocephin which we have continued. His urine initially had showed MRSA and he has no complaints except for some sore throat. He does have clear urine in the Rosenthal bag. PHYSICAL EXAMINATION: VITAL SIGNS: T-max is 97.4, pulse 85, blood pressure 123/73. The vitals were repeated at 4 o'clock with T-max 97.8, heart rate of 97, blood pressure 100/60, respirations 20. HEENT: Head is atraumatic, normocephalic. Eyes are equal and reactive and eye movements are unremarkable. Tongue is moist. NECK: Supple. JVP is flat. LUNGS: Clear. No crackles or rales heard. No wheezing present. No accessory muscles being used. HEART: S1, S2. Regular. ABDOMEN: Soft, nontender. No guarding, no rigidity present. Has surgical scars of previous surgeries. EXTREMITIES: Have no edema. No calf tenderness. LABORATORY DATA: Labs are noted. Labs show white count is 8.3, hemoglobin 11.6, hematocrit 33.8, platelet count is 359, BUN is 14, creatinine 0.6. Micro haley, now the repeat culture was negative on 11/16/2018; on 11/14/2018, he did come in with paraphimosis and he also had bladder stones I was told, so we will look up at the report of the surgery, transurethral resection of the prostate, evacuation of bladder stones. ASSESSMENT AND PLAN: So he had these things done, we will continue treatment, antibiotics at this time. We will follow with the urologist, and the patient also had paraphimosis reduction. Also, he has had on this admission. We will follow and keep him in contact precaution for now; however, urine is now negative. Zahra Washington MD
[2018-11-20] MEDS: Albuterol-Ipratrop 3 mg / 0.5 (3 ml) UD INH SCH ×4 (02:00→20:25)
--- NOTE | 2018-11-20 07:28 | CP.PCM.PN ---
<Ha Bailey - Last Filed: 11/20/18 15:40> Subjective - Date & Time of Evaluation Date of Evaluation: 11/20/18 Time of Evaluation: 07:26 - Subjective Subjective: PGY-1 Medicine Progress Note for Dr. Fitzpatrick Patient seen and examined at bedside this AM, s/p reduction of paraphimosis with subsequent TURP procedure and evacuation of bladder stones. No acute overnight events reported. Patient denies any groin pain or tenderness, no dysuria or hematuria. No other acute somatic complaints. Denies fever, chills, headache, chest pain, shortness of breath, abdominal pain, n/v/d/c. Objective - Vital Signs/Intake and Output Vital Signs (last 24 hours): Temp Pulse Resp BP Pulse Ox 97.9 F 95 H 20 106/62 95 11/20/18 00:00 11/20/18 00:00 11/20/18 00:00 11/20/18 00:00 11/20/18 00:00 Intake and Output: 11/20/18 11/20/18 06:59 18:59 Intake Total 1300 Output Total 2000 Balance -700 - Medications Medications: Current Medications Acetaminophen (Tylenol 325mg Tab) 650 mg PO Q6 PRN PRN Reason: Pain, Mild (1-3) Last Admin: 11/18/18 11:39 Dose: 650 mg Albuterol/Ipratropium (Duoneb 3 Mg/0.5 Mg (3 Ml) Ud) 3 ml INH RQ6 [facility]EN[facility] Last Admin: 11/20/18 02:00 Dose: Not Given Bisacodyl (Dulcolax) 10 mg PO HS [facility] Last Admin: 11/19/18 21:28 Dose: 10 mg Clonazepam (Klonopin) 0.5 mg PO TID PRN PRN Reason: Anxiety Last Admin: 11/19/18 21:28 Dose: 0.5 mg Fluoxetine HCl (Prozac) 10 mg PO DAILY [facility] Last Admin: 11/19/18 11:06 Dose: 10 mg Heparin Sodium (Porcine) (Heparin) 5,000 units SC Q12 [facility] Last Admin: 11/19/18 21:30 Dose: Not Given Ceftriaxone Sodium 1 gm/ (Sodium Chloride) 100 mls @ 100 mls/hr IVPB DAILY [facility]; Protocol Last Admin: 11/19/18 11:06 Dose: 100 mls/hr Vancomycin HCl 1 gm/ Sodium (Chloride) 250 mls @ 166.7 mls/hr IVPB Q24H [facility]; Protocol Last Admin: 11/19/18 19:30 Dose: 166.7 mls/hr Lactated Ringer's (Lactated Ringer's) 1,000 mls @ 100 mls/hr IV .Q10H [facility] Last Admin: 11/19/18 21:17 Dose: Not Given Lactobacillus Acidophilus (Bacid Acidophilus) 1 cap PO BID [facility] Last Admin: 11/19/18 17:57 Dose: 1 cap Oxycodone/Acetaminophen (Percocet 5/325 Mg Tab) 1 tab PO Q6H PRN PRN Reason: Pain, moderate (4-7) Stop: 11/21/18 15:14 Pantoprazole Sodium (Protonix Ec Tab) 40 mg PO DAILY [facility] Last Admin: 11/19/18 10:59 Dose: 40 mg Tamsulosin HCl (Flomax) 0.4 mg PO BID [facility] Last Admin: 11/19/18 17:57 Dose: 0.4 mg Temazepam (Restoril) 15 mg PO HS PRN PRN Reason: Insomnia Last Admin: 11/19/18 21:28 Dose: 15 mg - Labs Labs: 11/19/18 07:17 11/19/18 07:17 PT 13.8 SECONDS (9.7-12.2) H 11/14/18 11:29 INR 1.3 11/14/18 11:29 APTT 28 SECONDS (21-34) 11/14/18 11:29 - Constitutional Appears: Non-toxic, No Acute Distress - Head Exam Head Exam: ATRAUMATIC, NORMAL INSPECTION, NORMOCEPHALIC - Eye Exam Eye Exam: EOMI, Normal appearance, PERRL Pupil Exam: NORMAL ACCOMODATION - ENT Exam ENT Exam: Mucous Membranes Moist, Normal Exam - Neck Exam Neck Exam: Full ROM, Normal Inspection - Respiratory Exam Respiratory Exam: Clear to Ausculation Bilateral, NORMAL BREATHING PATTERN. absent: Accessory Muscle Use, Rales, Rhonchi, Wheezes, Respiratory Distress, Stridor - Cardiovascular Exam Cardiovascular Exam: REGULAR RHYTHM, +S1, +S2 - GI/Abdominal Exam GI & Abdominal Exam: Soft, Normal Bowel Sounds. absent: Distended, Firm, Guarding, Rigid, Tenderness, Rebound Additional comments: surgical scar noted from prior surgeries - Exam Additional comments: hall catheter in place draining urine adequately - Extremities Exam Extremities Exam: Full ROM, Normal Capillary Refill, Normal Inspection. absent: Calf Tenderness, Pedal Edema - Back Exam Back Exam: NORMAL INSPECTION - Neurological Exam Neurological Exam: Alert, Awake, Oriented x3 - Psychiatric Exam Psychiatric exam: Normal Affect, Normal Mood - Skin Skin Exam: Dry, Intact, Normal Color, Warm Assessment and Plan - Assessment and Plan (Free Text) Assessment: 78 year old M with PMHx of anxiety, depression, agoraphobia, WILVER 2/2 hydronephrosis with hall inserted 10/13 presenting with penile pain x 1 week. Patient is s/p reduction of paraphimosis, cysto, prostate biopsy with no complications or pain meds given. Now s/p TURP w/ multiple bladder stones removed. Plan: Paraphimosis Benign Prostatic Hyperplasia - Urology recs (Dr. 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 -spoke to Dr. Gonzalez (11/20) -hall may be d/c'd today -possible d/c tomorrow AM if pt passes voiding trial UTI, MRSA+ -Likely 2/2 to indwelling hall -Previous admission WILVER 2/2 hydronephrosis - Hall placed 10/10/18 - Noted on UA - Urine Culture (11/14): MRSA+ >100k colonies - Repeat Urine culture: no growth - ID consulted (Dr. Washington), recs appreciated -Vancomycin 1 gm daily -Rocephin 1 gram IVP daily -f/u repeat urine cx; if negative, may d/c rocephin, continue vancomycin for 7 days Nonproductive Cough - Duonebs Q6H - CXR: no consolidation noted Anxiety, Depression and Agoraphobia - Patient was evaluated by Psych on previous admission (10/2018) - Recommended Prozac 10mg PO daily - Resumed patient's home regimen Restoril, Klonopin PPx, Diet, Disposition: -DVT ppx: SCDs, heparin 5000 units -GI ppx: protonix, probiotics added -Diet: regular diet -Dispo: PT to re-evaluate patient s/p TURP, bladder stones removal. Hall to be removed today. Possible d/c tomorrow AM pending voiding trial Case discussed with Dr. Amari Bailey DO, PGY-1 <Lauren Fitzpatrick - Last Filed: 11/20/18 20:08> Objective - Vital Signs/Intake and Output Vital Signs (last 24 hours): Temp Pulse Resp BP Pulse Ox 97.5 F L 103 H 20 119/68 95 11/20/18 16:00 11/20/18 16:00 11/20/18 16:00 11/20/18 16:00 11/20/18 16:00 Intake and Output: 11/20/18 11/21/18 18:59 06:59 Intake Total 1550 Output Total 1700 Balance -150 - Medications Medications: Current Medications Acetaminophen (Tylenol 325mg Tab) 650 mg PO Q6 PRN PRN Reason: Pain, Mild (1-3) Last Admin: 11/18/18 11:39 Dose: 650 mg Albuterol/Ipratropium (Duoneb 3 Mg/0.5 Mg (3 Ml) Ud) 3 ml INH RQ6 [facility] Last Admin: 11/20/18 13:29 Dose: 3 ml Clonazepam (Klonopin) 0.5 mg PO TID PRN PRN Reason: Anxiety Last Admin: 11/20/18 19:46 Dose: 0.5 mg Fluoxetine HCl (Prozac) 10 mg PO DAILY [facility] Last Admin: 11/20/18 10:04 Dose: 10 mg Ceftriaxone Sodium 1 gm/ (Sodium Chloride) 100 mls @ 100 mls/hr IVPB DAILY [facility]; Protocol Last Admin: 11/20/18 10:40 Dose: 100 mls/hr Vancomycin HCl 1 gm/ Sodium (Chloride) 250 mls @ 166.7 mls/hr IVPB Q24H [facility]; Protocol Last Admin: 11/20/18 19:53 Dose: 166.7 mls/hr Lactated Ringer's (Lactated Ringer's) 1,000 mls @ 100 mls/hr IV .Q10H [facility] Last Admin: 11/20/18 18:03 Dose: 100 mls/hr Lactobacillus Acidophilus (Bacid Acidophilus) 1 cap PO BID [facility] Last Admin: 11/20/18 18:06 Dose: 1 cap Ondansetron HCl (Zofran Tab) 4 mg PO Q4H PRN PRN Reason: Nausea/Vomiting Oxycodone/Acetaminophen (Percocet 5/325 Mg Tab) 1 tab PO Q6H PRN PRN Reason: Pain, moderate (4-7) Stop: 11/21/18 15:14 Last Admin: 11/20/18 18:39 Dose: 1 tab Pantoprazole Sodium (Protonix Ec Tab) 40 mg PO DAILY [facility] Last Admin: 11/20/18 10:03 Dose: 40 mg Tamsulosin HCl (Flomax) 0.4 mg PO BID [facility] Last Admin: 11/20/18 18:06 Dose: 0.4 mg Temazepam (Restoril) 15 mg PO HS PRN PRN Reason: Insomnia Last Admin: 11/19/18 21:28 Dose: 15 mg - Labs Labs: 11/20/18 08:12 11/20/18 08:12 PT 13.8 SECONDS (9.7-12.2) H 11/14/18 11:29 INR 1.3 11/14/18 11:29 APTT 28 SECONDS (21-34) 11/14/18 11:29 Attending/Attestation - Attestation I have personally seen and examined this patient.: Yes I have fully participated in the care of the patient.: Yes I have reviewed all pertinent clinical information, including history, physical exam and plan: Yes Notes (Text): Seen and examined,s/p TURP Patient has no complain Sitting on bed,looks tired Denies pain Remove Hall cath/Voiding trial today as per urologist Patient lives alone,no family,friends help him.He is frail and s/p TURP We will ask PT re evaluate before discharge
[2018-11-20 08:24] LABS: BASO # 0.1 K/uL (0.0-0.2); BASO % 0.7 % (0.0-2.0); EOS # 0.6 K/uL (0.0-0.7); EOS % 7.6 % (0.0-4.0); HEMOGLOBIN 11.9 g/dL (12.0-18.0); LYMPH # 1.4 K/uL (1.0-4.3); LYMPH % 18.4 % (20.0-40.0); MEAN CELL VOLUME 89.7 fL (80.0-94.0); MEAN CORPUSCULAR HEMOGLOBIN 30.9 pg (27.0-31.0); MEAN CORPUSCULAR HGB CONC 34.5 g/dL (33.0-37.0); MEAN PLATELET VOLUME 7.8 fL (7.2-11.7); MONO # 0.5 K/uL (0.0-0.8); NEUT # 5.1 K/uL (1.8-7.0); NEUT % 66.3 % (50.0-75.0); NRBC % 0.1 % (0.0-2.0); RBC 3.86 Mil/uL (4.40-5.90); RED CELL DISTRIBUTION WIDTH 14.8 % (11.5-14.5); WHITE BLOOD COUNT 7.7 K/uL (4.8-10.8)
[2018-11-20 08:32] LABS: ALB/GLOB RATIO 0.9 (1.0-2.1); ALBUMIN 2.9 g/dL (3.5-5.0); ALT/SGPT 25 U/L (21-72); AST/SGOT 23 U/L (17-59); BLOOD UREA NITROGEN 14 mg/dL (9-20); CALCIUM 8.3 mg/dl (8.6-10.4); GFR NON-AFRICAN AMERICAN > 60
[2018-11-20] MEDS: Pantoprazole 40 mg EC Tab PO SCH (10:03)
[2018-11-20] MEDS: Lactobacillus Acidophilus 500 MU Cap PO SCH ×2 (10:04→18:06)
[2018-11-20] MEDS: Lactated Ringer's 1,000 ML IV SCH ×2 (13:46→18:03)
--- NOTE | 2018-11-20 21:45 | CP.PCM.PN ---
Subjective - Date & Time of Evaluation Date of Evaluation: 11/20/18 Time of Evaluation: 18:20 - Subjective Subjective: dictated Objective - Vital Signs/Intake and Output Vital Signs (last 24 hours): Temp Pulse Resp BP Pulse Ox 97.5 F L 103 H 20 119/68 95 11/20/18 16:00 11/20/18 16:00 11/20/18 16:00 11/20/18 16:00 11/20/18 16:00 Intake and Output: 11/20/18 11/21/18 18:59 06:59 Intake Total 1550 Output Total 1700 Balance -150 - Medications Medications: Current Medications Acetaminophen (Tylenol 325mg Tab) 650 mg PO Q6 PRN PRN Reason: Pain, Mild (1-3) Last Admin: 11/18/18 11:39 Dose: 650 mg Albuterol/Ipratropium (Duoneb 3 Mg/0.5 Mg (3 Ml) Ud) 3 ml INH RQ6 [facility] Last Admin: 11/20/18 13:29 Dose: 3 ml Clonazepam (Klonopin) 0.5 mg PO TID PRN PRN Reason: Anxiety Last Admin: 11/20/18 19:46 Dose: 0.5 mg Fluoxetine HCl (Prozac) 10 mg PO DAILY [facility] Last Admin: 11/20/18 10:04 Dose: 10 mg Ceftriaxone Sodium 1 gm/ (Sodium Chloride) 100 mls @ 100 mls/hr IVPB DAILY [facility]; Protocol Last Admin: 11/20/18 10:40 Dose: 100 mls/hr Vancomycin HCl 1 gm/ Sodium (Chloride) 250 mls @ 166.7 mls/hr IVPB Q24H [facility]; Protocol Last Admin: 11/20/18 19:53 Dose: 166.7 mls/hr Lactated Ringer's (Lactated Ringer's) 1,000 mls @ 100 mls/hr IV .Q10H [facility] Last Admin: 11/20/18 18:03 Dose: 100 mls/hr Lactobacillus Acidophilus (Bacid Acidophilus) 1 cap PO BID [facility] Last Admin: 11/20/18 18:06 Dose: 1 cap Ondansetron HCl (Zofran Tab) 4 mg PO Q4H PRN PRN Reason: Nausea/Vomiting Oxycodone/Acetaminophen (Percocet 5/325 Mg Tab) 1 tab PO Q6H PRN PRN Reason: Pain, moderate (4-7) Stop: 11/21/18 15:14 Last Admin: 11/20/18 18:39 Dose: 1 tab Pantoprazole Sodium (Protonix Ec Tab) 40 mg PO DAILY [facility] Last Admin: 11/20/18 10:03 Dose: 40 mg Tamsulosin HCl (Flomax) 0.4 mg PO BID [facility] Last Admin: 11/20/18 18:06 Dose: 0.4 mg Temazepam (Restoril) 15 mg PO HS PRN PRN Reason: Insomnia Last Admin: 11/20/18 21:31 Dose: 15 mg - Labs Labs: 11/20/18 08:12 11/20/18 08:12 PT 13.8 SECONDS (9.7-12.2) H 11/14/18 11:29 INR 1.3 11/14/18 11:29 APTT 28 SECONDS (21-34) 11/14/18 11:29
[2018-11-21] MEDS: Albuterol-Ipratrop 3 mg / 0.5 (3 ml) UD INH SCH ×4 (01:20→20:54)
--- NOTE | 2018-11-21 02:11 | PN ---
DATE: 11/20/2018 INFECTIOUS DISEASE FOLLOWUP NOTE SUBJECTIVE: I went to the see the patient today. He has had surgery recently for prostate as well as for paraphimosis reduction and evacuation of bladder stones, and today, he had his Rosenthal catheter removed, and he was trying to void on his own but he says he has not voided as yet. When I saw him around 6:30, he was denying any other symptoms. Denied any chest pain, no fever, no chills but he said he has not voided so I told that he should let the nurse know that if he fails, then probably, they will need to consult the urologist again, and he denied any nausea, vomiting, or any other symptoms. He did say that when he cleaned himself after number two, he did find there was some blood on his penis which is probably expected, he is post surgery. PHYSICAL EXAMINATION: VITAL SIGNS: T-max is 97.5, heart rate of 103, blood pressure 119/68, respirations are 20. HEENT: Atraumatic. Pupils are reacting to light. NECK: Supple. LUNGS: Clear. No crackles or rales present. HEART: S1, S2 regular. ABDOMEN: Soft. Nontender. However, I could palpate his bladder and I did warn him to let the nurse know if he is not able to void in the next few hours. LABORATORY DATA: BUN is 14, creatinine 0.7. He is still on antibiotics and DuoNeb and Rocephin and will continue both, however, his urine culture now is negative. ASSESSMENT AND PLAN: I plan to give at least vancomycin for seven days for the wound healing as well as because he did have MRSA in the urine. He was started on vancomycin on the . We will follow. Zahra Washington MD
[2018-11-21 07:11] LABS: BASO # 0.1 K/uL (0.0-0.2); BASO % 0.6 % (0.0-2.0); EOS # 0.6 K/uL (0.0-0.7); EOS % 5.5 % (0.0-4.0); HEMOGLOBIN 11.3 g/dL (12.0-18.0); LYMPH # 1.3 K/uL (1.0-4.3); LYMPH % 11.6 % (20.0-40.0); MEAN CELL VOLUME 89.6 fL (80.0-94.0); MEAN CORPUSCULAR HEMOGLOBIN 30.2 pg (27.0-31.0); MEAN CORPUSCULAR HGB CONC 33.7 g/dL (33.0-37.0); MEAN PLATELET VOLUME 7.9 fL (7.2-11.7); MONO # 0.7 K/uL (0.0-0.8); NEUT # 8.7 K/uL (1.8-7.0); NEUT % 76.3 % (50.0-75.0); RBC 3.74 Mil/uL (4.40-5.90); RED CELL DISTRIBUTION WIDTH 15.2 % (11.5-14.5); WHITE BLOOD COUNT 11.3 K/uL (4.8-10.8)
--- NOTE | 2018-11-21 07:29 | CP.PCM.PN ---
Subjective - Date & Time of Evaluation Date of Evaluation: 11/21/18 Time of Evaluation: 07:27 - Subjective Subjective: PGY-1 Medicine Progress Note for Dr. Fitzpatrick Patient seen and examined at bedside this AM. Patient was unable to urinate s/p discontinuation of hall, complained of bladder distention. Overnight resident inserted 18 egyptian catheter with 1100cc of clear yellow urine output. Today, no acute somatic complaints. Denies fever, chills, headache, chest pain, shortness of breath, abdominal pain, n/v/d/c. Objective - Vital Signs/Intake and Output Vital Signs (last 24 hours): Temp Pulse Resp BP Pulse Ox 98.1 F 96 H 18 158/84 H 97 11/21/18 00:00 11/21/18 00:00 11/21/18 00:00 11/21/18 00:00 11/21/18 00:00 Intake and Output: 11/21/18 11/21/18 06:59 18:59 Intake Total 1000 1200 Output Total 20 1600 Balance 980 -400 - Medications Medications: Current Medications Acetaminophen (Tylenol 325mg Tab) 650 mg PO Q6 PRN PRN Reason: Pain, Mild (1-3) Last Admin: 11/18/18 11:39 Dose: 650 mg Albuterol/Ipratropium (Duoneb 3 Mg/0.5 Mg (3 Ml) Ud) 3 ml INH RQ6 BRENDA Last Admin: 11/21/18 01:20 Dose: 3 ml Clonazepam (Klonopin) 0.5 mg PO TID PRN PRN Reason: Anxiety Last Admin: 11/20/18 19:46 Dose: 0.5 mg Fluoxetine HCl (Prozac) 10 mg PO DAILY BRENDA Last Admin: 11/20/18 10:04 Dose: 10 mg Ceftriaxone Sodium 1 gm/ (Sodium Chloride) 100 mls @ 100 mls/hr IVPB DAILY BRENDA; Protocol Last Admin: 11/20/18 10:40 Dose: 100 mls/hr Vancomycin HCl 1 gm/ Sodium (Chloride) 250 mls @ 166.7 mls/hr IVPB Q24H BRENDA; Protocol Last Admin: 11/20/18 19:53 Dose: 166.7 mls/hr Lactated Ringer's (Lactated Ringer's) 1,000 mls @ 100 mls/hr IV .Q10H BRENDA Last Admin: 11/20/18 18:03 Dose: 100 mls/hr Lactobacillus Acidophilus (Bacid Acidophilus) 1 cap PO BID [facility] Last Admin: 11/20/18 18:06 Dose: 1 cap Ondansetron HCl (Zofran Tab) 4 mg PO Q4H PRN PRN Reason: Nausea/Vomiting Oxycodone/Acetaminophen (Percocet 5/325 Mg Tab) 1 tab PO Q6H PRN PRN Reason: Pain, moderate (4-7) Stop: 11/21/18 15:14 Last Admin: 11/20/18 18:39 Dose: 1 tab Pantoprazole Sodium (Protonix Ec Tab) 40 mg PO DAILY [facility] Last Admin: 11/20/18 10:03 Dose: 40 mg Tamsulosin HCl (Flomax) 0.4 mg PO BID [facility] Last Admin: 11/20/18 18:06 Dose: 0.4 mg Temazepam (Restoril) 15 mg PO HS PRN PRN Reason: Insomnia Last Admin: 11/20/18 21:31 Dose: 15 mg - Labs Labs: 11/21/18 06:59 11/20/18 08:12 PT 13.8 SECONDS (9.7-12.2) H 11/14/18 11:29 INR 1.3 11/14/18 11:29 APTT 28 SECONDS (21-34) 11/14/18 11:29 - Constitutional Appears: Non-toxic, No Acute Distress - Head Exam Head Exam: ATRAUMATIC, NORMAL INSPECTION, NORMOCEPHALIC - Eye Exam Eye Exam: EOMI, Normal appearance, PERRL Pupil Exam: NORMAL ACCOMODATION - ENT Exam ENT Exam: Mucous Membranes Moist, Normal Exam - Neck Exam Neck Exam: Full ROM, Normal Inspection - Respiratory Exam Respiratory Exam: Clear to Ausculation Bilateral, NORMAL BREATHING PATTERN. absent: Accessory Muscle Use, Rales, Rhonchi, Wheezes, Respiratory Distress, Stridor - Cardiovascular Exam Cardiovascular Exam: REGULAR RHYTHM, +S1, +S2 - GI/Abdominal Exam GI & Abdominal Exam: Soft, Normal Bowel Sounds. absent: Distended, Firm, Guarding, Rigid, Tenderness, Organomegaly Additional comments: surgical scar noted from prior surgeries - Exam Additional comments: hall catheter reinserted draining clear yellow urine adequately, 1600cc/24hrs - Extremities Exam Extremities Exam: Full ROM, Normal Capillary Refill, Normal Inspection. absent: Calf Tenderness, Pedal Edema - Neurological Exam Neurological Exam: Alert, Awake, Oriented x3 - Psychiatric Exam Psychiatric exam: Normal Affect, Normal Mood - Skin Skin Exam: Dry, Intact, Normal Color, Warm Assessment and Plan - Assessment and Plan (Free Text) Assessment: 78 year old M with PMHx of anxiety, depression, agoraphobia, WILVER 2/2 hydronephrosis with hall inserted 10/13 presenting with penile pain x 1 week. Patient is s/p reduction of paraphimosis, cysto, prostate biopsy with no complications or pain meds given. Now s/p TURP w/ multiple bladder stones removed. Plan: Paraphimosis Benign Prostatic Hyperplasia - Urology recs (Dr. 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 -hall reinserted last night after pt had significant bladder distention/pain -18 egyptian, drained 1100cc clear yellow urine -hall remains in place, f/u urology recs UTI, MRSA+ -Likely 2/2 to indwelling hall -Previous admission WILVER 2/2 hydronephrosis - Hall placed 10/10/18 - Noted on UA - Urine Culture (11/14): MRSA+ >100k colonies - Repeat Urine culture: no growth - ID consulted (Dr. Washington), recs appreciated -repeat urine cx: no growth -per ID recs: on rocephin, continue vancomycin for total of 7 days (started on 11/17) Nonproductive Cough - Duonebs Q6H - CXR: no consolidation noted Anxiety, Depression and Agoraphobia - Patient was evaluated by Psych on previous admission (10/2018) - Recommended Prozac 10mg PO daily - Resumed patient's home regimen Restoril, Klonopin PPx, Diet, Disposition: -DVT ppx: SCDs, heparin 5000 units -GI ppx: protonix, probiotics added -Diet: regular diet -Dispo: f/u urology recs s/p reinsertion of hall, we will ask PT to re-evaluate prior to discharge Case discussed with Dr. Amari Bailey DO, PGY-1
[2018-11-21 07:32] LABS: ALBUMIN 2.9 g/dL (3.5-5.0); ALT/SGPT 24 U/L (21-72); AST/SGOT 26 U/L (17-59); BLOOD UREA NITROGEN 19 mg/dL (9-20); CALCIUM 8.3 mg/dl (8.6-10.4); GFR NON-AFRICAN AMERICAN > 60
[2018-11-21] MEDS: Pantoprazole 40 mg EC Tab PO SCH (09:33)
[2018-11-21] MEDS: Lactobacillus Acidophilus 500 MU Cap PO SCH ×2 (09:33→17:32)
--- NOTE | 2018-11-21 19:51 | CP.PCM.PN ---
Subjective - Date & Time of Evaluation Date of Evaluation: 11/21/18 Time of Evaluation: 18:00 - Subjective Subjective: dictated Objective - Vital Signs/Intake and Output Vital Signs (last 24 hours): Temp Pulse Resp BP Pulse Ox 97.7 F 95 H 20 118/65 95 11/21/18 17:04 11/21/18 17:04 11/21/18 17:04 11/21/18 17:04 11/21/18 17:04 Intake and Output: 11/21/18 11/22/18 18:59 06:59 Intake Total 2600 Output Total 3100 Balance -500 - Medications Medications: Current Medications Acetaminophen (Tylenol 325mg Tab) 650 mg PO Q6 PRN PRN Reason: Pain, Mild (1-3) Last Admin: 11/18/18 11:39 Dose: 650 mg Albuterol/Ipratropium (Duoneb 3 Mg/0.5 Mg (3 Ml) Ud) 3 ml INH RQ6 BRENDA Last Admin: 11/21/18 13:31 Dose: 3 ml Clonazepam (Klonopin) 0.5 mg PO TID PRN PRN Reason: Anxiety Last Admin: 11/20/18 19:46 Dose: 0.5 mg Fluoxetine HCl (Prozac) 10 mg PO DAILY BRENDA Last Admin: 11/21/18 09:33 Dose: 10 mg Ceftriaxone Sodium 1 gm/ (Sodium Chloride) 100 mls @ 100 mls/hr IVPB DAILY BRENDA; Protocol Last Admin: 11/21/18 09:34 Dose: 100 mls/hr Vancomycin HCl 1 gm/ Sodium (Chloride) 250 mls @ 166.7 mls/hr IVPB Q24H BRENDA; Protocol Last Admin: 11/20/18 19:53 Dose: 166.7 mls/hr Lactated Ringer's (Lactated Ringer's) 1,000 mls @ 100 mls/hr IV .Q10H BRENDA Last Admin: 11/20/18 18:03 Dose: 100 mls/hr Lactobacillus Acidophilus (Bacid Acidophilus) 1 cap PO BID [facility]ENDA Last Admin: 11/21/18 17:32 Dose: 1 cap Ondansetron HCl (Zofran Tab) 4 mg PO Q4H PRN PRN Reason: Nausea/Vomiting Pantoprazole Sodium (Protonix Ec Tab) 40 mg PO DAILY BRENDA Last Admin: 11/21/18 09:33 Dose: 40 mg Tamsulosin HCl (Flomax) 0.4 mg PO BID BRENDA Last Admin: 11/21/18 17:33 Dose: 0.4 mg Temazepam (Restoril) 15 mg PO HS PRN PRN Reason: Insomnia Last Admin: 11/20/18 21:31 Dose: 15 mg - Labs Labs: 11/21/18 06:59 11/21/18 06:59 PT 13.8 SECONDS (9.7-12.2) H 11/14/18 11:29 INR 1.3 11/14/18 11:29 APTT 28 SECONDS (21-34) 11/14/18 11:29
[2018-11-21] MEDS: Lactated Ringer's 1,000 ML IV SCH (23:00)
--- NOTE | 2018-11-21 23:36 | PN ---
DATE: 11/21/2018 INFECTIOUS DISEASE FOLLOWUP NOTE SUBJECTIVE: The patient was seen today. He has a Rosenthal catheter which was placed again. He said yesterday he started to have abdominal distention, and he was not able to void. The nurse did a bladder scan and found that he has urine collection in the bladder, and they had to place the Rosenthal catheter. He feels much relief right now, but he is unable to void on his own. Resident had to insert an 18-Azeri catheter, and he had 1100 mL of clear urine. Now, he is denying any fever, chills, or any other complaints. PHYSICAL EXAMINATION: VITAL SIGNS: T-max is 97.7, pulse 95, blood pressure is 118/65, respirations are 20. HEENT: Head is atraumatic, normocephalic. NECK: Supple. LUNGS: Clear. No crackles or rales present. HEART: S1 and S2 are regular. ABDOMEN: Soft right now. No guarding, no rigidity present. He does have a Rosenthal catheter. EXTREMITIES: Have no edema. LABORATORY DATA: His white count jumped up to 11.3, most likely from the retention. Platelets are 427 at this time. He had a urine culture. I hope they repeated the culture again. ASSESSMENT AND PLAN: I would just repeat the cultures anyway because of retention. The cultures are negative, so we will wait to see. If he continues to improve, I think on Friday he will be done with antibiotics hopefully. Impression is that he came in with paraphimosis. He has benign prostatic hypertrophy. He has urinary retention which is improved by Rosenthal catheter. Zahra Washington MD
[2018-11-22] MEDS: Lactated Ringer's 1,000 ML IV SCH ×4 (00:02→19:55)
[2018-11-22] MEDS: Albuterol-Ipratrop 3 mg / 0.5 (3 ml) UD INH SCH ×4 (00:59→19:32)
--- NOTE | 2018-11-22 07:43 | CP.PCM.PN ---
<Ha Bailey - Last Filed: 11/22/18 11:07> Subjective - Date & Time of Evaluation Date of Evaluation: 11/22/18 Time of Evaluation: 07:42 - Subjective Subjective: PGY-1 Medicine Progress Note for Dr. Paniagua Patient seen and examined at bedside, resting comfortably. No acute overnight events reported. Continues to tolerate PO diet well, draining urine adequately via hall cath. No acute somatic complaints at this time. Objective - Vital Signs/Intake and Output Vital Signs (last 24 hours): Temp Pulse Resp BP Pulse Ox 98 F 92 H 20 99/53 L 96 11/21/18 23:55 11/21/18 23:55 11/21/18 23:55 11/21/18 23:55 11/21/18 23:55 Intake and Output: 11/22/18 11/22/18 06:59 18:59 Intake Total 2300 Output Total 1600 Balance 700 - Medications Medications: Current Medications Acetaminophen (Tylenol 325mg Tab) 650 mg PO Q6 PRN PRN Reason: Pain, Mild (1-3) Last Admin: 11/18/18 11:39 Dose: 650 mg Albuterol/Ipratropium (Duoneb 3 Mg/0.5 Mg (3 Ml) Ud) 3 ml INH RQ6 BRENDA Last Admin: 11/22/18 07:31 Dose: 3 ml Clonazepam (Klonopin) 0.5 mg PO TID PRN PRN Reason: Anxiety Last Admin: 11/21/18 21:45 Dose: 0.5 mg Fluoxetine HCl (Prozac) 10 mg PO DAILY BRENDA Last Admin: 11/21/18 09:33 Dose: 10 mg Ceftriaxone Sodium 1 gm/ (Sodium Chloride) 100 mls @ 100 mls/hr IVPB DAILY BRENDA; Protocol Last Admin: 11/21/18 09:34 Dose: 100 mls/hr Vancomycin HCl 1 gm/ Sodium (Chloride) 250 mls @ 166.7 mls/hr IVPB Q24H BRENDA; Protocol Last Admin: 11/21/18 20:10 Dose: 166.7 mls/hr Lactated Ringer's (Lactated Ringer's) 1,000 mls @ 100 mls/hr IV .Q10H BRENDA Last Admin: 11/22/18 00:02 Dose: 100 mls/hr Lactobacillus Acidophilus (Bacid Acidophilus) 1 cap PO BID [facility] Last Admin: 11/21/18 17:32 Dose: 1 cap Ondansetron HCl (Zofran Tab) 4 mg PO Q4H PRN PRN Reason: Nausea/Vomiting Pantoprazole Sodium (Protonix Ec Tab) 40 mg PO DAILY [facility] Last Admin: 11/21/18 09:33 Dose: 40 mg Tamsulosin HCl (Flomax) 0.4 mg PO BID [facility] Last Admin: 11/21/18 17:33 Dose: 0.4 mg Temazepam (Restoril) 15 mg PO HS PRN PRN Reason: Insomnia Last Admin: 11/21/18 21:45 Dose: 15 mg - Labs Labs: 11/21/18 06:59 11/21/18 06:59 PT 13.8 SECONDS (9.7-12.2) H 11/14/18 11:29 INR 1.3 11/14/18 11:29 APTT 28 SECONDS (21-34) 11/14/18 11:29 - Constitutional Appears: Non-toxic, No Acute Distress - Head Exam Head Exam: ATRAUMATIC, NORMAL INSPECTION, NORMOCEPHALIC - Eye Exam Eye Exam: EOMI, Normal appearance, PERRL Pupil Exam: NORMAL ACCOMODATION - ENT Exam ENT Exam: Mucous Membranes Moist, Normal Exam - Neck Exam Neck Exam: Full ROM, Normal Inspection - Respiratory Exam Respiratory Exam: Clear to Ausculation Bilateral, NORMAL BREATHING PATTERN. absent: Accessory Muscle Use, Rales, Rhonchi, Wheezes, Respiratory Distress, Stridor - Cardiovascular Exam Cardiovascular Exam: REGULAR RHYTHM, +S1, +S2 - GI/Abdominal Exam GI & Abdominal Exam: Soft, Normal Bowel Sounds. absent: Distended, Firm, Guarding, Rigid, Tenderness, Organomegaly - Exam Additional comments: hall catheter reinserted draining clear yellow urine adequately - Extremities Exam Extremities Exam: Normal Capillary Refill, Normal Inspection. absent: Calf T enderness, Pedal Edema - Neurological Exam Neurological Exam: Alert, Awake, Oriented x3 - Psychiatric Exam Psychiatric exam: Normal Affect, Normal Mood - Skin Skin Exam: Dry, Intact, Normal Color, Warm Assessment and Plan - Assessment and Plan (Free Text) Assessment: 78 year old M with PMHx of anxiety, depression, agoraphobia, WILVER 2/2 hydronephrosis with hall inserted 10/13 presenting with penile pain x 1 week. Patient is s/p reduction of paraphimosis, cysto, prostate biopsy with no complications or pain meds given. Now s/p TURP w/ multiple bladder stones removed. Plan: Paraphimosis Benign Prostatic Hyperplasia - Urology recs (Dr. 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 -hall reinserted last night after pt had significant bladder distention/pain -hall remains in place, f/u urology recs UTI, MRSA+ -Likely 2/2 to indwelling hall -Previous admission WILVER 2/2 hydronephrosis - Hall placed 10/10/18 - Noted on UA - Urine Culture (11/14): MRSA+ >100k colonies - Repeat Urine culture: no growth - ID consulted (Dr. Washington), recs appreciated -per ID recs: on rocephin, continue vancomycin for total of 7 days (started on 11/17) -f/u ID recs, may stop abx tomorrow (11/23) Nonproductive Cough - Duonebs Q6H - CXR: no consolidation noted Anxiety, Depression and Agoraphobia - Patient was evaluated by Psych on previous admission (10/2018) - Recommended Prozac 10mg PO daily - Resumed patient's home regimen Restoril, Klonopin PPx, Diet, Disposition: -DVT ppx: SCDs, heparin 5000 units -GI ppx: protonix, probiotics added -Diet: regular diet -Dispo: f/u urology recs s/p reinsertion of hall, we will ask PT to re-evaluate prior to discharge Case discussed with Dr. Arcelia Bailey DO, PGY-1 <Chase Paniagua - Last Filed: 11/22/18 12:11> Objective - Vital Signs/Intake and Output Vital Signs (last 24 hours): Temp Pulse Resp BP Pulse Ox 97.8 F 96 H 18 111/61 98 11/22/18 08:04 11/22/18 08:04 11/22/18 08:04 11/22/18 08:04 11/22/18 08:04 Intake and Output: 11/22/18 11/22/18 06:59 18:59 Intake Total 2300 Output Total 1600 Balance 700 - Medications Medications: Current Medications Acetaminophen (Tylenol 325mg Tab) 650 mg PO Q6 PRN PRN Reason: Pain, Mild (1-3) Last Admin: 11/18/18 11:39 Dose: 650 mg Albuterol/Ipratropium (Duoneb 3 Mg/0.5 Mg (3 Ml) Ud) 3 ml INH RQ6 BRENDA Last Admin: 11/22/18 07:31 Dose: 3 ml Clonazepam (Klonopin) 0.5 mg PO TID PRN PRN Reason: Anxiety Last Admin: 11/21/18 21:45 Dose: 0.5 mg Fluoxetine HCl (Prozac) 10 mg PO DAILY BRENDA Last Admin: 11/22/18 09:01 Dose: 10 mg Ceftriaxone Sodium 1 gm/ (Sodium Chloride) 100 mls @ 100 mls/hr IVPB DAILY BRENDA; Protocol Last Admin: 11/22/18 09:34 Dose: 100 mls/hr Vancomycin HCl 1 gm/ Sodium (Chloride) 250 mls @ 166.7 mls/hr IVPB Q24H BRENDA; Protocol Last Admin: 11/21/18 20:10 Dose: 166.7 mls/hr Lactated Ringer's (Lactated Ringer's) 1,000 mls @ 100 mls/hr IV .Q10H BRENDA Last Admin: 11/22/18 11:49 Dose: 100 mls/hr Lactobacillus Acidophilus (Bacid Acidophilus) 1 cap PO BID [facility] Last Admin: 11/22/18 09:01 Dose: 1 cap Ondansetron HCl (Zofran Tab) 4 mg PO Q4H PRN PRN Reason: Nausea/Vomiting Pantoprazole Sodium (Protonix Ec Tab) 40 mg PO DAILY [facility]ENDA Last Admin: 11/22/18 09:01 Dose: 40 mg Tamsulosin HCl (Flomax) 0.4 mg PO BID [facility]EN[facility] Last Admin: 11/22/18 09:01 Dose: 0.4 mg Temazepam (Restoril) 15 mg PO HS PRN PRN Reason: Insomnia Last Admin: 11/21/18 21:45 Dose: 15 mg - Labs Labs: 11/22/18 07:49 11/22/18 07:49 PT 13.8 SECONDS (9.7-12.2) H 11/14/18 11:29 INR 1.3 11/14/18 11:29 APTT 28 SECONDS (21-34) 11/14/18 11:29 Attending/Attestation - Attestation I have personally seen and examined this patient.: Yes I have fully participated in the care of the patient.: Yes I have reviewed all pertinent clinical information, including history, physical exam and plan: Yes Notes (Text): 11/22/18 12:08 Medical attending: Patient was seen and examined by me. Agree with the above note by the resident The patient was not in any acute distress when I came and saw him - he remembe red me from previous week The patient was not having any pain. The events from previous week were noted. The hall was placed back in - patient reported much releif after the hall was placed back in The patient also is pending discharge provided that we can get confirmation from case workers that he will be having home services. Chase Paniagua
[2018-11-22 08:00] LABS: BASO % 0.6 % (0.0-2.0); EOS # 0.7 K/uL (0.0-0.7); EOS % 8.9 % (0.0-4.0); HEMOGLOBIN 11.3 g/dL (12.0-18.0); LYMPH # 1.2 K/uL (1.0-4.3); LYMPH % 16.7 % (20.0-40.0); MEAN CELL VOLUME 89.7 fL (80.0-94.0); MEAN CORPUSCULAR HEMOGLOBIN 30.9 pg (27.0-31.0); MEAN CORPUSCULAR HGB CONC 34.4 g/dL (33.0-37.0); MEAN PLATELET VOLUME 7.7 fL (7.2-11.7); MONO # 0.5 K/uL (0.0-0.8); NEUT # 4.9 K/uL (1.8-7.0); NEUT % 66.8 % (50.0-75.0); RBC 3.66 Mil/uL (4.40-5.90); RED CELL DISTRIBUTION WIDTH 15.1 % (11.5-14.5); WHITE BLOOD COUNT 7.4 K/uL (4.8-10.8)
[2018-11-22 08:09] LABS: BLOOD UREA NITROGEN 17 mg/dL (9-20); CALCIUM 8.3 mg/dl (8.6-10.4); GFR NON-AFRICAN AMERICAN > 60
[2018-11-22] MEDS: Lactobacillus Acidophilus 500 MU Cap PO SCH ×2 (09:01→17:59)
[2018-11-22] MEDS: Pantoprazole 40 mg EC Tab PO SCH (09:01)
[2018-11-22 16:31] VITALS: RESP 20
[2018-11-22 23:36] VITALS: PULSE 87; O2SAT 98
[2018-11-23] MEDS: Albuterol-Ipratrop 3 mg / 0.5 (3 ml) UD INH SCH ×3 (02:50→13:37)
--- NOTE | 2018-11-23 08:10 | CON ---
DATE: 11/20/2018 The patient is post TUR. He has severe hypotonic bladder. Today, the Rosenthal removed. We will see the how is the patient; if he voids well, and if he is okay, he can be discharged in the weekend. Otherwise, we will need to send him with the Rosenthal. The patient has been started by the resident on heparin. I stopped the heparin, and he will follow up with me as an outpatient after voiding. Kavita Gonzalez MD
[2018-11-23 08:21] LABS: BASO # 0.1 K/uL (0.0-0.2); BASO % 0.9 % (0.0-2.0); EOS # 0.6 K/uL (0.0-0.7); EOS % 7.4 % (0.0-4.0); HEMOGLOBIN 11.8 g/dL (12.0-18.0); LYMPH # 1.1 K/uL (1.0-4.3); LYMPH % 12.9 % (20.0-40.0); MEAN CELL VOLUME 90.7 fL (80.0-94.0); MEAN CORPUSCULAR HEMOGLOBIN 30.5 pg (27.0-31.0); MEAN CORPUSCULAR HGB CONC 33.6 g/dL (33.0-37.0); MEAN PLATELET VOLUME 7.5 fL (7.2-11.7); MONO # 0.6 K/uL (0.0-0.8); MONO % 7.2 % (0.0-10.0); NEUT # 6.3 K/uL (1.8-7.0); NEUT % 71.6 % (50.0-75.0); RBC 3.88 Mil/uL (4.40-5.90); RED CELL DISTRIBUTION WIDTH 15.1 % (11.5-14.5); WHITE BLOOD COUNT 8.8 K/uL (4.8-10.8)
[2018-11-23 08:35] VITALS: BP 112/63; TEMP 97.5
[2018-11-23 08:36] LABS: BLOOD UREA NITROGEN 19 mg/dL (9-20); CALCIUM 8.3 mg/dl (8.6-10.4); GFR NON-AFRICAN AMERICAN > 60
[2018-11-23] MEDS: Pantoprazole 40 mg EC Tab PO SCH (09:23)
[2018-11-23] MEDS: Lactobacillus Acidophilus 500 MU Cap PO SCH (09:24)
--- NOTE | 2018-11-23 13:08 | CP.PCM.DIS ---
<Ha Bailey - Last Filed: 11/23/18 12:54> Provider - Provider Date of Admission: 11/14/18 12:31 Attending physician: Chase Paniagua DO Consults: 11/14/18 14:47 Nephrology Consult Routine Comment: Consulting Provider: Braulio Evans Consulting Physician: Braulio Evans Reason for Consult: previous admission hydronephrosis requiring hall; hall still in 11/16/18 19:23 Physician Consult Routine Comment: Consulting Provider: Zahra Washington Consulting Physician: Zahra Washington Reason for Consult: complicated UTI/MRSA urine Time Spent in preparation of Discharge (in minutes): 40 Hospital Course - Lab Results Lab Results: Micro Results 11/22/18 14:43 Urine,Hall Urine Culture - Final No Growth (<1,000 CFU/ML) 11/16/18 22:15 Blood-Venous Blood Culture - Final NO GROWTH AFTER 5 DAYS 11/16/18 22:15 Blood-Venous Gram Stain - Final TEST NOT PERFORMED 11/16/18 22:40 Blood-Venous Blood Culture - Final NO GROWTH AFTER 5 DAYS 11/16/18 22:40 Blood-Venous Gram Stain - Final TEST NOT PERFORMED 11/19/18 14:20 Urine Urine Culture - Final No Growth (<1,000 CFU/ML) 11/16/18 21:33 Urine,Hall Urine Culture - Final No Growth (<1,000 CFU/ML) 11/14/18 11:29 Urine,Catheterized Urine Culture - Final Methicillin Resistant S Aureus Most Recent Lab Values WBC 8.8 K/uL (4.8-10.8) 11/23/18 08:08 RBC 3.88 Mil/uL (4.40-5.90) L 11/23/18 08:08 Hgb 11.8 g/dL (12.0-18.0) L 11/23/18 08:08 Hct 35.2 % (35.0-51.0) 11/23/18 08:08 MCV 90.7 fL (80.0-94.0) 11/23/18 08:08 MCH 30.5 pg (27.0-31.0) 11/23/18 08:08 MCHC 33.6 g/dL (33.0-37.0) 11/23/18 08:08 RDW 15.1 % (11.5-14.5) H 11/23/18 08:08 Plt Count 415 K/uL (130-400) H 11/23/18 08:08 MPV 7.5 fL (7.2-11.7) 11/23/18 08:08 Neut % (Auto) 71.6 % (50.0-75.0) 11/23/18 08:08 Lymph % (Auto) 12.9 % (20.0-40.0) L 11/23/18 08:08 Blanco % (Auto) 7.2 % (0.0-10.0) 11/23/18 08:08 Eos % (Auto) 7.4 % (0.0-4.0) H 11/23/18 08:08 Baso % (Auto) 0.9 % (0.0-2.0) 11/23/18 08:08 Neut # (Auto) 6.3 K/uL (1.8-7.0) 11/23/18 08:08 Lymph # (Auto) 1.1 K/uL (1.0-4.3) 11/23/18 08:08 Blanco # (Auto) 0.6 K/uL (0.0-0.8) 11/23/18 08:08 Eos # (Auto) 0.6 K/uL (0.0-0.7) 11/23/18 08:08 Baso # (Auto) 0.1 K/uL (0.0-0.2) 11/23/18 08:08 Neutrophils % (Manual) 87 % (50-75) H 11/14/18 11:21 Lymphocytes % (Manual) 5 % (20-40) L 11/14/18 11:21 Monocytes % (Manual) 5 % (0-10) 11/14/18 11:21 Eosinophils % (Manual) 3 % (0-4) 11/14/18 11:21 Platelet Estimate Normal (NORMAL) 11/14/18 11:21 Large Platelets Present 11/14/18 11:21 Polychromasia Slight 11/14/18 11:21 Poikilocytosis (manual Slight 11/14/18 11:21 Anisocytosis (manual) Slight 11/14/18 11:21 Ovalocytes Slight 11/14/18 11:21 Schistocytes Slight 11/14/18 11:21 ESR 60 mm/hr (0-15) H 11/17/18 06:43 PT 13.8 SECONDS (9.7-12.2) H 11/14/18 11:29 INR 1.3 11/14/18 11:29 APTT 28 SECONDS (21-34) 11/14/18 11:29 Sodium 137 mmol/L (132-148) 11/23/18 08:08 Potassium 4.1 mmol/L (3.6-5.2) 11/23/18 08:08 Chloride 101 mmol/L (98-107) 11/23/18 08:08 Carbon Dioxide 30 mmol/L (22-30) 11/23/18 08:08 Anion Gap 10 (10-20) 11/23/18 08:08 BUN 19 mg/dL (9-20) 11/23/18 08:08 Creatinine 0.7 mg/dL (0.8-1.5) L 11/23/18 08:08 Est GFR ( Amer) > 60 11/23/18 08:08 Est GFR (Non-Af Amer) > 60 11/23/18 08:08 Random Glucose 92 mg/dL (75-110) 11/23/18 08:08 Calcium 8.3 mg/dl (8.6-10.4) L 11/23/18 08:08 Phosphorus 4.6 mg/dL (2.5-4.5) H 11/21/18 06:59 Magnesium 2.0 mg/dL (1.6-2.3) 11/21/18 06:59 Total Bilirubin 0.2 mg/dL (0.2-1.3) 11/21/18 06:59 AST 26 U/L (17-59) 11/21/18 06:59 ALT 24 U/L (21-72) 11/21/18 06:59 Alkaline Phosphatase 101 U/L (38-126) 11/21/18 06:59 Total Protein 5.9 g/dL (6.3-8.3) L 11/21/18 06:59 Albumin 2.9 g/dL (3.5-5.0) L 11/21/18 06:59 Globulin 2.9 gm/dL (2.2-3.9) 11/21/18 06:59 Albumin/Globulin Ratio 1.0 (1.0-2.1) 11/21/18 06:59 Urine Color Yellow (YELLOW) 11/16/18 22:44 Urine Clarity Clear (Clear) 11/16/18 22:44 Urine pH 6.0 (5.0-8.0) 11/16/18 22:44 Ur Specific Taylor 1.018 (1.003-1.030) 11/16/18 22:44 Urine Protein Negative mg/dL (NEGATIVE) 11/16/18 22:44 Urine Glucose (UA) Normal mg/dL (Normal) 11/16/18 22:44 Urine Ketones Negative mg/dL (NEGATIVE) 11/16/18 22:44 Urine Blood 3+ (NEGATIVE) H 11/16/18 22:44 Urine Nitrate Negative (NEGATIVE) 11/16/18 22:44 Urine Bilirubin Negative (NEGATIVE) 11/16/18 22:44 Urine Urobilinogen Normal mg/dL (0.2-1.0) 11/16/18 22:44 Ur Leukocyte Esterase 2+ Umm/uL (Negative) H 11/16/18 22:44 Urine WBC (Auto) 83 /hpf (0-5) H 11/16/18 22:44 Urine RBC (Auto) 540 /hpf (0-3) H 11/16/18 22:44 Urine WBC Clumps (Auto) Few /hpf (NONE) H 11/14/18 11:29 Urine Bacteria Rare (<OCC) 11/16/18 22:44 Hyaline Casts 3-5 /lpf (0-2) H 11/16/18 22:44 Blood Type B POSITIVE 11/14/18 11:21 Antibody Screen Negative 11/14/18 11:21 - Hospital Course Hospital Course: HPI: This is an 78 year old male with past medical history of Anxiety, Depression and Agoraphobia who presents to the ED with penile pain for 1 week. Patient reports he has has a hall placed since 10/13/18 (due to hydronephrosis). He has followed up with urologist Dr. Gonzalez about 2 weeks ago and reports all was well at that time. Last week patient started to notice swelling, irritation, and blood around the insertion site of the hall. The pain became progressively worse, eventually not allowing the patient to sleep well at night. Patient lives alone at home, ambulates with walker and is able to perform basic activities of daily living with assistance from friends. Denied any current fever, chills, headache, chest pain, shortness of breath, abdominal pain, suprapubic pain, sim sea/vomiting/diarrhea/constipation, dysuria, or hematuria. During the course of admission: Urinalysis was positive for infection, with urine cultures growing methicillin resistant staph aureus. Urinary infection was likely secondary to patient's indwelling hall prior to admission. Infectious Disease (Dr. Washington) was consulted and patient was placed on rocephin and vancomycin. Urology was cons ulted (Dr. Gonzalez) and patient underwent surgical reduction of paraphimosis with cystogram and prostate biopsy (11/16). A number of bladder stones were subsequently found and patient underwent TURP procedure with bladder stones removal (11/18). Hall catheter was inserted and patient drained adequate clear yellow urine. Hall was discontinued on 11/20 and patient underwent a 24 hour voiding trial, per Urology recommendations. Patient however was unable to tolerate voiding trial, complaing of distention/pain. Hall was reinserted and patient drained ~1100 cc of urine. Hall catheter remained in place over the weekend with relief of symptoms, draining adequate clear yellow urine. Repeat urine cultures demonstrated no further bacterial growth. Patient remained afebrile during course of admission with no leukocytosis noted and no symptoms of dysuria, urgency, or frequency. IV antibiotics were subsequently discontinued after a week of treatment. Patient is medically stable for discharge to home with home services, as per Dr. Paniagua. Per Urology recommendations (Dr. Gonzalez), patient will be discharged home with hall catheter in place. Patient is instructed to continue all home medicat ions as prescribed. Script has been provided for home services as well as hall care. Please follow up with Dr. Gonzalez within 1 week of discharge for continued care and management. Please also follow up with your primary care provider and psychiatrist within 1-2 weeks of discharge for continued care The following is a summary of hospital course. For full detail, please refer to EMR. - Date & Time of H&P Date of H&P: 11/23/18 Time of H&P: 12:54 Discharge Exam - Head Exam Head Exam: ATRAUMATIC, NORMAL INSPECTION, NORMOCEPHALIC - Eye Exam Eye Exam: EOMI, Normal appearance, PERRL Pupil Exam: NORMAL ACCOMODATION - ENT Exam ENT Exam: Mucous Membranes Moist, Normal Exam - Neck Exam Neck exam: Full Rom, Normal Inspection - Respiratory Exam Respiratory Exam: Clear to PA & Lateral, NORMAL BREATHING PATTERN, UNREMARKABLE. absent: Accessory Muscle Use, Rales, Rhonchi, Wheezes, Respiratory Distress, Stridor - Cardiovascular Exam Cardiovascular Exam: REGULAR RHYTHM, +S1, +S2 - GI/Abdominal Exam GI & Abdominal Exam: Normal Bowel Sounds, Soft, Unremarkable. absent: Distended, Firm, Guarding, Hernia, Rebound, Rigid, Tenderness - Exam Additional comments: indwelling hall cath intact, adequately draining clear yellow urine - Extremities Exam Extremities exam: full ROM, normal capillary refill, normal inspection, pedal p ulses present - Back Exam Back exam: NORMAL INSPECTION - Neurological Exam Neurological exam: Alert, Oriented x3 - Psychiatric Exam Psychiatric exam: Normal Affect, Normal Mood - Skin Skin Exam: Dry, Intact, Normal Color, Warm Discharge Plan - Discharge Medications Prescriptions: RX: Lactobacillus Acidophilus [Bacid Acidophilus] 1 cap PO BID #60 cap RX: Mesalamine [Apriso] 1 tab PO HS #30 cap.er.24h RX: Pantoprazole [Protonix EC Tab] 40 mg PO DAILY #30 ect RX: Tamsulosin [Flomax] 0.4 mg PO DAILY #30 cap - Follow Up Plan Condition: GOOD Disposition: HOME/ ROUTINE Additional Instructions: Patient is medically stable for discharge to home with home services, as per Dr. Paniagua. Per Urology recommendations (Dr. Gonzalez), patient will be discharged home with hall catheter in place. Patient is instructed to continue all home medications as prescribed. Script has been provided for home services as well as hall care. Please follow up with Dr. Gonzalez within 1 week of discharge for continued care and management. Please also follow up with your primary care provider and psychiatrist within 1-2 weeks of discharge for continued care. If symptoms worsen, please return to the ED immediately. Referrals: Kavita Gonzalez MD [Staff Provider] - <Chase Paniagua - Last Filed: 11/23/18 14:56> Provider - Provider Date of Admission: 11/14/18 12:31 Attending physician: Chase Paniagua DO Consults: 11/14/18 14:47 Nephrology Consult Routine Comment: Consulting Provider: Braulio Evans Consulting Physician: Braulio Evans Reason for Consult: previous admission hydronephrosis requiring hall; hall still in 11/16/18 19:23 Physician Consult Routine Comment: Consulting Provider: Zahra Washington Consulting Physician: Zahra Washington Reason for Consult: complicated UTI/MRSA urine Hospital Course - Lab Results Lab Results: Micro Results 11/22/18 14:43 Urine,Hall Urine Culture - Final No Growth (<1,000 CFU/ML) 11/16/18 22:15 Blood-Venous Blood Culture - Final NO GROWTH AFTER 5 DAYS 11/16/18 22:15 Blood-Venous Gram Stain - Final TEST NOT PERFORMED 11/16/18 22:40 Blood-Venous Blood Culture - Final NO GROWTH AFTER 5 DAYS 11/16/18 22:40 Blood-Venous Gram Stain - Final TEST NOT PERFORMED 11/19/18 14:20 Urine Urine Culture - Final No Growth (<1,000 CFU/ML) 11/16/18 21:33 Urine,Hall Urine Culture - Final No Growth (<1,000 CFU/ML) 11/14/18 11:29 Urine,Catheterized Urine Culture - Final Methicillin Resistant S Aureus Most Recent Lab Values WBC 8.8 K/uL (4.8-10.8) 11/23/18 08:08 RBC 3.88 Mil/uL (4.40-5.90) L 11/23/18 08:08 Hgb 11.8 g/dL (12.0-18.0) L 11/23/18 08:08 Hct 35.2 % (35.0-51.0) 11/23/18 08:08 MCV 90.7 fL (80.0-94.0) 11/23/18 08:08 MCH 30.5 pg (27.0-31.0) 11/23/18 08:08 MCHC 33.6 g/dL (33.0-37.0) 11/23/18 08:08 RDW 15.1 % (11.5-14.5) H 11/23/18 08:08 Plt Count 415 K/uL (130-400) H 11/23/18 08:08 MPV 7.5 fL (7.2-11.7) 11/23/18 08:08 Neut % (Auto) 71.6 % (50.0-75.0) 11/23/18 08:08 Lymph % (Auto) 12.9 % (20.0-40.0) L 11/23/18 08:08 Blanco % (Auto) 7.2 % (0.0-10.0) 11/23/18 08:08 Eos % (Auto) 7.4 % (0.0-4.0) H 11/23/18 08:08 Baso % (Auto) 0.9 % (0.0-2.0) 11/23/18 08:08 Neut # (Auto) 6.3 K/uL (1.8-7.0) 11/23/18 08:08 Lymph # (Auto) 1.1 K/uL (1.0-4.3) 11/23/18 08:08 Blanco # (Auto) 0.6 K/uL (0.0-0.8) 11/23/18 08:08 Eos # (Auto) 0.6 K/uL (0.0-0.7) 11/23/18 08:08 Baso # (Auto) 0.1 K/uL (0.0-0.2) 11/23/18 08:08 Neutrophils % (Manual) 87 % (50-75) H 11/14/18 11:21 Lymphocytes % (Manual) 5 % (20-40) L 11/14/18 11:21 Monocytes % (Manual) 5 % (0-10) 11/14/18 11:21 Eosinophils % (Manual) 3 % (0-4) 11/14/18 11:21 Platelet Estimate Normal (NORMAL) 11/14/18 11:21 Large Platelets Present 11/14/18 11:21 Polychromasia Slight 11/14/18 11:21 Poikilocytosis (manual Slight 11/14/18 11:21 Anisocytosis (manual) Slight 11/14/18 11:21 Ovalocytes Slight 11/14/18 11:21 Schistocytes Slight 11/14/18 11:21 ESR 60 mm/hr (0-15) H 11/17/18 06:43 PT 13.8 SECONDS (9.7-12.2) H 11/14/18 11:29 INR 1.3 11/14/18 11:29 APTT 28 SECONDS (21-34) 11/14/18 11:29 Sodium 137 mmol/L (132-148) 11/23/18 08:08 Potassium 4.1 mmol/L (3.6-5.2) 11/23/18 08:08 Chloride 101 mmol/L (98-107) 11/23/18 08:08 Carbon Dioxide 30 mmol/L (22-30) 11/23/18 08:08 Anion Gap 10 (10-20) 11/23/18 08:08 BUN 19 mg/dL (9-20) 11/23/18 08:08 Creatinine 0.7 mg/dL (0.8-1.5) L 11/23/18 08:08 Est GFR ( Amer) > 60 11/23/18 08:08 Est GFR (Non-Af Amer) > 60 11/23/18 08:08 Random Glucose 92 mg/dL (75-110) 11/23/18 08:08 Calcium 8.3 mg/dl (8.6-10.4) L 11/23/18 08:08 Phosphorus 4.6 mg/dL (2.5-4.5) H 11/21/18 06:59 Magnesium 2.0 mg/dL (1.6-2.3) 11/21/18 06:59 Total Bilirubin 0.2 mg/dL (0.2-1.3) 11/21/18 06:59 AST 26 U/L (17-59) 11/21/18 06:59 ALT 24 U/L (21-72) 11/21/18 06:59 Alkaline Phosphatase 101 U/L (38-126) 11/21/18 06:59 Total Protein 5.9 g/dL (6.3-8.3) L 11/21/18 06:59 Albumin 2.9 g/dL (3.5-5.0) L 11/21/18 06:59 Globulin 2.9 gm/dL (2.2-3.9) 11/21/18 06:59 Albumin/Globulin Ratio 1.0 (1.0-2.1) 11/21/18 06:59 Urine Color Yellow (YELLOW) 11/16/18 22:44 Urine Clarity Clear (Clear) 11/16/18 22:44 Urine pH 6.0 (5.0-8.0) 11/16/18 22:44 Ur Specific Taylor 1.018 (1.003-1.030) 11/16/18 22:44 Urine Protein Negative mg/dL (NEGATIVE) 11/16/18 22:44 Urine Glucose (UA) Normal mg/dL (Normal) 11/16/18 22:44 Urine Ketones Negative mg/dL (NEGATIVE) 11/16/18 22:44 Urine Blood 3+ (NEGATIVE) H 11/16/18 22:44 Urine Nitrate Negative (NEGATIVE) 11/16/18 22:44 Urine Bilirubin Negative (NEGATIVE) 11/16/18 22:44 Urine Urobilinogen Normal mg/dL (0.2-1.0) 11/16/18 22:44 Ur Leukocyte Esterase 2+ Umm/uL (Negative) H 11/16/18 22:44 Urine WBC (Auto) 83 /hpf (0-5) H 11/16/18 22:44 Urine RBC (Auto) 540 /hpf (0-3) H 11/16/18 22:44 Urine WBC Clumps (Auto) Few /hpf (NONE) H 11/14/18 11:29 Urine Bacteria Rare (<OCC) 11/16/18 22:44 Hyaline Casts 3-5 /lpf (0-2) H 11/16/18 22:44 Blood Type B POSITIVE 11/14/18 11:21 Antibody Screen Negative 11/14/18 11:21 Attending/Attestation - Attestation I have personally seen and examined this patient.: Yes I have fully participated in the care of the patient.: Yes I have reviewed all pertinent clinical information, including history, physical exam and plan: Yes Notes (Text): Medical attending: Patient was seen and examined by me with the medical residents - the patient was not in any acute distress when I came and saw the patient. We were waiting on confirmation from social / case workers on the patient having home services available and I was informed that it is ready. Patient reports that he has had home visiting services before in the past. The patient did have it removed last week on but developed so much discomfort from retention that another hall had to be placed back in on Friday. Patient will be discharged today however we emphasized to the patient that he still needs to follow up with urology with rearguards to the Hall catheter - he has been to urology office before in the past and he understands the need the catheter exchanged every few weeks We wish him the best Chase Paniagua
== END 2018-11-23 15:38 | disposition home or self-care (01) | DRG 709 ==
LOC: C.ER 10:12 → C.9E 12:31 → C.3T 12:47
PROVIDERS: ADMIT Hospitalist; ATTEND Hospitalist
PROC: 0VNS0ZZ Release Penis, Open Approach (ICD-10-PCS; 2018-11-16)
PROC: BT1B1ZZ Fluoroscopy of Bladder and Urethra using Low Osmolar Contrast (ICD-10-PCS; 2018-11-16)
PROC: 0VB03ZX Excision of Prostate, Percutaneous Approach, Diagnostic (ICD-10-PCS; 2018-11-16)
PROC: 0TCB8ZZ Extirpation of Matter from Bladder, Via Natural or Artificial Opening Endoscopic (ICD-10-PCS; 2018-11-18)
PROC: 0T9B8ZZ Drainage of Bladder, Via Natural or Artificial Opening Endoscopic (ICD-10-PCS; 2018-11-18)
PROC: 0VT08ZZ Resection of Prostate, Via Natural or Artificial Opening Endoscopic (ICD-10-PCS; principal; 2018-11-18 13:30)
DX: N40.1 Benign prostatic hyperplasia with lower urinary tract symptoms (principal); T83.511A Infection and inflammatory reaction due to indwelling urethral catheter, initial encounter; N13.30 Unspecified hydronephrosis; N39.0 Urinary tract infection, site not specified; N47.2 Paraphimosis; Z85.46 Personal history of malignant neoplasm of prostate; M06.9 Rheumatoid arthritis, unspecified; N21.0 Calculus in bladder; R33.8 Other retention of urine; B95.62 Methicillin resistant Staphylococcus aureus infection as the cause of diseases classified elsewhere; N31.2 Flaccid neuropathic bladder, not elsewhere classified